=== PATIENT | female | born 1950 | race Caucasian/White ===

== ENCOUNTER → 2020-09-06 10:18 | Outpatient (BNVA) | payer SELFPAY | PROVIDERS: Visit Provider Nurse Practitioner ==

== ENCOUNTER → 2020-10-25 11:57 | Outpatient (BNVA) | payer MEDICARE, SELFPAY | PROVIDERS: PCP Internal Medicine; Visit Provider Nurse Practitioner | DX: Z13.89 Encounter for screening for other disorder (principal) | CPT/HCPCS: 99212 ==

== ENCOUNTER → 2020-12-06 14:51 | Outpatient (BNVA) | payer MEDICARE, SELFPAY | PROVIDERS: PCP Internal Medicine; Visit Provider Nurse Practitioner | DX: R13.10 Dysphagia, unspecified (principal); K22.70 Barrett's esophagus without dysplasia; K21.9 Gastro-esophageal reflux disease without esophagitis; Z80.0 Family history of malignant neoplasm of digestive organs | CPT/HCPCS: Q3014 ==

== ENCOUNTER 2020-12-07 08:43 | Outpatient (REF) | payer MEDICARE, SELFPAY ==
[2020-12-07 10:18] LABS: MANUAL DIFF FLAG NO
[2020-12-07 10:39] LABS: Basophils Percent Auto 0.9 % (0-2); Eosinophils Absolute Auto 0.1 X10*3/uL (0.0-0.4); Eosinophils Percent Auto 2.1 % (0-4); Hematocrit 37.9 % (37-47); Hemoglobin 12.4 g/dl (12.0-16.0); Imm Gran Abs Auto 0.01 X10*3/uL (0.00-0.03); Imm Gran Pct Auto 0.2 % (0.0-0.4); Lymphocytes Absolute Auto 1.4 X10*3/uL (1.2-4.9); Lymphocytes Percent Auto 30.8 % (20-40); Mean Corpuscular HGB Conc 32.7 g/dl (31.0-35.0); Mean Corpuscular Hemoglobin 31.6 pg (27.0-33.0); Mean Corpuscular Volume 96.7 fL (80-98); Mean Platelet Volume 10.5 fL (9.4-12.3); Monocytes Absolute Auto 0.5 X10*3/uL (0.1-1.2); Monocytes Percent Auto 9.6 % (2-11); Neutrophils Absolute Auto 2.6 X10*3/uL (2.0-8.3); Neutrophils Percent Auto 56.4 % (45-73); Platelet Count 249 X10*3/uL (160-400); Red Blood Count 3.92 X10*6/uL (4.20-5.50); Red Cell Distribution Width 12.8 % (11.0-16.0); White Blood Count 4.7 X10*3/uL (4.8-10.8)
[2020-12-07 10:56] LABS: Alanine Aminotransferase 17 U/L (0-31); Alkaline Phosphatase 57 U/L (39-117); Anion Gap 10 (12-20); Aspartate Amino Transferase 16 U/L (5-31); Bilirubin Total 0.9 mg/dL (0.0-1.0); Blood Urea Nitrogen 7 mg/dL (9-16); Calcium 9.2 mg/dL (8.4-10.2); Carbon Dioxide 27 mmol/L (22-29); Chloride 110 mmol/L (96-108); Estimated Glomerular Filt Rate > 60; Glucose Random 90 mg/dL (60-115); Potassium 4.4 mmol/L (3.3-5.1); Sodium 143 mmol/L (135-145); Total Protein 6.2 g/dL (6.5-8.0)
== END 2020-12-07 08:44 | disposition home or self-care (01) ==
LOC: HO.10HDL 08:43
PROVIDERS: Visit Provider Internal Medicine
DX: T59.91XA Toxic effect of unspecified gases, fumes and vapors, accidental (unintentional), initial encounter (principal)
CPT/HCPCS: 36415; 80053; 85025

== ENCOUNTER 2021-04-29 08:47 | Outpatient (REF) | payer MEDICARE, SELFPAY ==
--- NOTE | ~2021-04-29 | MM_ITS ---
EXAMINATION: MM SCREENING DIGITAL BREAST TOMOSYNTHESIS, BILATERAL CLINICAL INFORMATION: Screening. Asymptomatic. The lifetime risk of breast cancer based on the Tyrer-Cuzick Model is 3%. COMPARISON: Mammography: 04/27/2020, 01/06/2019, 12/17/2017 TECHNIQUE: Digital breast tomosynthesis is performed in both the craniocaudal and mediolateral oblique views along with computer-aided detection (CAD). Synthesized 2D images are generated from the tomosynthesis. FINDINGS: There are scattered areas of fibroglandular density (ACR BI-RADS breast composition Category b). There are no significant masses, abnormal calcifications, or other abnormalities. Parenchymal pattern is similar to prior studies. No significant changes. MM/MM tomosynthesis screening BI IMPRESSION: No mammographic evidence of malignancy. ASSESSMENT: BI-RADS 1: Negative RECOMMENDATION: Routine annual mammography screening. This patient's information was entered into a reminder system with a target due date for their next mammogram.
== END 2021-04-29 08:48 | disposition home or self-care (01) ==
LOC: HO.MAMMO 08:47
PROVIDERS: Visit Provider Internal Medicine
DX: Z12.31 Encounter for screening mammogram for malignant neoplasm of breast (principal)
CPT/HCPCS: 77063; 77067

== ENCOUNTER 2021-05-21 07:10 | Outpatient (REF) | payer MEDICARE, SELFPAY ==
[2021-05-21 07:32] LABS: MANUAL DIFF FLAG NO
[2021-05-21 07:47] LABS: Basophils Percent Auto 0.8 % (0-2); Eosinophils Absolute Auto 0.2 X10*3/uL (0.0-0.4); Eosinophils Percent Auto 3.6 % (0-4); Hematocrit 39.6 % (37-47); Hemoglobin 13.2 g/dl (12.0-16.0); Imm Gran Abs Auto 0.01 X10*3/uL (0.00-0.03); Imm Gran Pct Auto 0.2 % (0.0-0.4); Lymphocytes Absolute Auto 1.5 X10*3/uL (1.2-4.9); Lymphocytes Percent Auto 28.9 % (20-40); Mean Corpuscular HGB Conc 33.3 g/dl (31.0-35.0); Mean Corpuscular Volume 96.1 fL (80-98); Mean Platelet Volume 10.1 fL (9.4-12.3); Monocytes Absolute Auto 0.5 X10*3/uL (0.1-1.2); Monocytes Percent Auto 9.9 % (2-11); Neutrophils Absolute Auto 2.9 X10*3/uL (2.0-8.3); Neutrophils Percent Auto 56.6 % (45-73); Platelet Count 226 X10*3/uL (160-400); Red Blood Count 4.12 X10*6/uL (4.20-5.50); Red Cell Distribution Width 12.1 % (11.0-16.0); White Blood Count 5.1 X10*3/uL (4.8-10.8)
[2021-05-21 08:19] LABS: Alanine Aminotransferase 19 U/L (0-31); Alkaline Phosphatase 60 U/L (39-117); Anion Gap 10 (12-20); Aspartate Amino Transferase 15 U/L (5-31); Bilirubin Total 0.7 mg/dL (0.0-1.0); Blood Urea Nitrogen 10 mg/dL (9-16); Carbon Dioxide 28 mmol/L (22-29); Chloride 110 mmol/L (96-108); Cholesterol 189 mg/dL; Estimated Glomerular Filt Rate > 60; Glucose Fasting 96 mg/dL (60-99); HDL Cholesterol 55 mg/dL; LDL Cholesterol Calculated 123 mg/dl; Potassium 4.7 mmol/L (3.3-5.1); Sodium 143 mmol/L (135-145); Total Protein 6.1 g/dL (6.5-8.0); Triglycerides 55 mg/dL
[2021-05-21 08:39] LABS: TSH reflex Free T4 2.21 uIU/mL (0.32-4.0)
[2021-05-21 09:21] LABS: Appearance Urine CLEAR; Color Urine YELLOW; Glucose Urine UA NEG (NEG); Leukocyte Esterase Urine TRACE (NEG); Nitrite Urine NEG (NEG); Specific Gravity - Urine >= 1.030 (1.005-1.025); UACC Culture Trigger YES; Urine Blood NEG (NEG); Urine Ketones NEG (NEG); Urine Protein NEG (NEG-TRACE)
[2021-05-21 09:39] LABS: Mucus Urine 3+ /LPF; RBC Urine 0-2 /HPF (0); Squamous Epithelial Cell Urine 2+ /LPF
== END 2021-05-21 07:11 | disposition home or self-care (01) ==
LOC: HO.LAB 07:10
PROVIDERS: PCP Internal Medicine; Visit Provider Internal Medicine
DX: I10 Essential (primary) hypertension (principal); E78.00 Pure hypercholesterolemia, unspecified
CPT/HCPCS: 36415; 80053; 80061; 81001; 84443; 85025; 87086

== ENCOUNTER 2021-06-03 08:16 | Day surgery (SDC) | payer MEDICARE, SELFPAY ==
--- NOTE | 2021-05-30 13:56 | HO.ANESPROP2 ---
Documented by User: Rianna Mohan NP 05/30/21 13:57 HPI - Anesthesia Eval Consult details Narrative: 70yo F for Upper Endoscopy PMFSH Active Problems Active Problems: All Active Problems (Updated 05/22/21 @ 10:38 by Tristian Galvan MD) Osteopenia (Acute) Galloway's esophagus (Acute) GERD (gastroesophageal reflux disease) (Acute) Overweight (BMI 25.0-29.9) (Acute) Pure hypercholesterolemia (Acute) Benign essential hypertension (Acute) Galloway's esophagus (Acute) Dysphagia (Acute) Family history of colon cancer (Acute) Past Medical History Medical History Galloway's esophagus Benign essential hypertension GERD (gastroesophageal reflux disease) Osteopenia Overweight (BMI 25.0-29.9) Pure hypercholesterolemia Family History Family History Mother Angina pectoris Hearing loss Father Colon cancer, Onset Age: 91 Hearing loss Colon polyp Sister Brain tumor Paternal Grandfather Lung cancer Maternal Grandfather Myocardial infarction Maternal Grandmother Scarlet fever Other Substance abuse Surgical History Surgical History History of bladder suspension procedure History of cataract extraction History of esophagogastroduodenoscopy (EGD) Hx of colonoscopy Hx of hemorrhoidectomy Hx of hysterectomy Hx of tonsillectomy Social History Social History Household Members: None Housing: Other 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 Are you a primary health care attorney to a significant other at home: No Do you presently have visiting nurse or other home services: No Alcohol intake: former Patient Tobacco Use Status: Former Tobacco user Quit Date: 1990 Second Hand Smoke Exposure: Yes Are you DNR?: No Advance Directives: No Advance Directives Information Provided: Yes Recently lost weight without trying: No How much weight loss: 2-13 pounds Eating poorly because of decreased appetite: No Nutrition screen score: 1 Patient : No service: No Current occupational status: retired Meds Allergies Allergy/AdvReac Type Severity Reaction Status Date / Time pantoprazole AdvReac Unknown dizziness Verified 05/22/21 10:06 14-Count Warmer Allergy Unknown ? Uncoded 05/22/21 10:06 Exam Exam Date and Time: May 30, 2021 1356 Pertinent Lab Results Pertinent Lab Results: Laboratory Tests 05/21/21 05/21/21 07:29 07:29 WBC 5.1 Hgb 13.2 Hct 39.6 Plt Count 226 Sodium 143 Potassium 4.7 Chloride 110 H Carbon Dioxide 28 BUN 10 Creatinine 0.72 Assessment and Plan Assessment Anesthesia Assessment: Chart Reviewed Documented by User: Yajaira Vasquez MD 06/03/21 09:21 [facility] Past Medical History Medical History Galloway's esophagus Benign essential hypertension GERD (gastroesophageal reflux disease) Osteopenia Overweight (BMI 25.0-29.9) Pure hypercholesterolemia Functional capacity: independent ambulation Patient : No Family History Family History Mother Angina pectoris Hearing loss Father Colon cancer, Onset Age: 91 Hearing loss Colon polyp Sister Brain tumor Paternal Grandfather Lung cancer Maternal Grandfather Myocardial infarction Maternal Grandmother Scarlet fever Other Substance abuse Family history of problems with anesthesia: No Surgical History Surgical History History of bladder suspension procedure History of cataract extraction History of esophagogastroduodenoscopy (EGD) Hx of colonoscopy Hx of hemorrhoidectomy Hx of hysterectomy Hx of tonsillectomy History of Problems with Anesthesia: No Social History Social History Household Members: None Housing: Other 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 Are you a primary health care attorney to a significant other at home: No Do you presently have visiting nurse or other home services: No Alcohol intake: former Patient Tobacco Use Status: Former Tobacco user Quit Date: 1990 Second Hand Smoke Exposure: Yes Are you DNR?: No Advance Directives: No Advance Directives Information Provided: Yes Recently lost weight without trying: No How much weight loss: 2-13 pounds Eating poorly because of decreased appetite: No Nutrition screen score: 1 Patient : No service: No Current occupational status: retired Meds Allergies Allergy/AdvReac Type Severity Reaction Status Date / Time pantoprazole AdvReac Unknown dizziness Verified 05/22/21 10:06 14-Count Warmer Allergy Unknown ? Uncoded 05/22/21 10:06 Exam Airway Mallampati Class: II TM Dist: >3cm Neck ROM: Full Heart: RRR Lungs: CTA Assessment and Plan Final Anesthetic Review Family History of Problems with Anesthesia: No History of Problems with Anesthesia: No
[2021-06-03 08:40] VITALS: BP 151/62; PULSE 71; RESP 18; TEMP 36.6; O2SAT 98; BMI 25.4
--- NOTE | 2021-06-03 09:10 | MHC.SHP ---
Pre-Procedural Eval Section A Date of Service: 06/03/21 Section B Chief Complaint: dysphagia Relevant Family History (Specify if Yes): No Relevant Social History: None Present Medications: see Short Stay Collaborative assessment Medical History: Significant History (Galloway's esophagus Benign essential hypertension GERD (gastroesophageal reflux disease) Osteopenia Overweight (BMI 25.0-29.9) Pure hypercholesterolemia) History of Previous Operations: Relevant previous surgery/procedure and date(s) (History of bladder suspension procedure History of cataract extraction History of esophagogastroduodenoscopy (EGD) Hx of colonoscopy Hx of hemorrhoidectomy Hx of hysterectomy Hx of tonsillectomy) Allergies: Allergies Allergy/AdvReac Type Severity Reaction Status Date / Time pantoprazole AdvReac Unknown dizziness Verified 05/22/21 10:06 14-Count Warmer Allergy Unknown ? Uncoded 05/22/21 10:06 Review of Systems Sugical H&P ROS: Negative: Constitution, Cardiovascular, Respiratory, Neurological, Psychiatric, Hem-Onc, Allergic/Immunologic, Gastrointestinal, Genitourinary, Musculoskeletal, Integumentary, Endocrine and Eyes/Ears/Nose/Throat Exam Surgical H&P Exam: Normal: HEENT, Normal: Heart, Normal: Lungs, Normal: Extremities, Normal: Abdomen, Normal: Skin and Normal: Neurological Plan Diagnosis/Plan: Unchanged I have reviewed the history and physical and performed a pertinent physical examination on my patient. No changes have occurred unless specified.
--- NOTE | 2021-06-03 09:11 | P.BOP_ITS ---
Brief Operative Note Date of Service: 06/03/21 Pre-op diagnosis: GERD and occ dysphagia Post-op diagnosis: same Procedure: see op note Surgeon: Mercedez Jerez MD Anesthesia: MAC Was an Department Supervisor used for this Procedure?: No Estimated blood loss (mL): 0 Condition: stable Disposition: PACU
[2021-06-03] MEDS: Lactated Ringers 1,000 ML 50 ML IVCONT (09:22)
--- NOTE | 2021-06-03 09:26 | W.PM.OPN ---
Operative Note Operative Note Date of Service: 06/03/21 Narrative: Procedure Description: EGD FLEXIBLE TRANSORAL UPPER GASTROINTESTINAL ENDOSCOPY UPPER ENDOSCOPY Consent: Indications for the procedure and potential complications of bleeding, perforation, reaction to medications and missed diagnosis were discussed with the patient and informed consent was obtained. Instrument: Olympus GIF H 190 J mid size upper endoscope Monitoring: Vital signs and clinical assessment, continuous EKG monitoring, Pulse oximetry, Carbon Dioxide monitoring and blood pressure monitoring were done throughout the procedure. Procedure: The patient was placed in the left lateral decubitis position and pre-procedure medications were administered and a bite block was placed. The endoscope was inserted into the mouth and advanced under direct vision to the third part of duodenum. A careful inspection was made as the upper endoscope was withdrawn including a retroflexed examination of the proximal stomach; Findings and interventions are described below. Findings: Larynx:normal Esophagus: GE junction at 35 cm, diaphragm hiatus at 37 cm, mild esophagitis noted, bx taken from GEj and distal.proximal esophagus in separate jars. 2 cm sliding hiatal hernia noted. Balloon dilation to 19 mm at lower esophagus and 18 mm at UES Stomach: Patchy gastric erythema with antral erosions. Biopsies were obtained. Grade 2 flap valve on retroflexed examination of the cardia. Duodenum: moderate duodenitis, bx taken Intervention: Biopsies as noted above, balloon dilation Impression/Findings: erosive gastritis duodenitis hiatal hernia esophagitis PLAN: await bx she does take alleve once a week for back pain, has not been totally compliant with PPI, advised to take to reduce risk of ucleration and further acid damage, reviewed timings of BID dosing PPI
[2021-06-03 09:59] VITALS: BP 108/60; PULSE 80; RESP 16; TEMP 36.2; O2SAT 98
[2021-06-03 10:20] VITALS: BP 120/46; PULSE 69; RESP 16; TEMP 36.2; O2SAT 98
--- NOTE | 2021-06-03 12:54 | HO.POSTANES ---
Post Anesthesia Evaluation Post Anesthesia Evaluation Vital Signs: Vital Signs Temp Pulse Resp BP Pulse Ox 06/03/21 10:20 97.2 F 69 16 120/46 L 98 06/03/21 09:59 97.2 F 80 16 108/60 98 06/03/21 08:40 97.9 F 71 18 151/62 H 98 Anesthesia: Monitored Mental Status: Awake Pain Control: Satisfactory Nausea/Vomiting: None Hydration: Adequate Anesthesia-Related Issues: No Anes. Related Issues
== END 2021-06-03 11:46 | disposition home or self-care (01) ==
PROVIDERS: PCP Internal Medicine; Visit Provider Internal Medicine Gastroenterology
PROC: 0DJ08ZZ Inspection of Upper Intestinal Tract, Via Natural or Artificial Opening Endoscopic (ICD-10-PCS; CPT 43235; principal; 2021-06-03 09:20)
DX: K21.00 Gastro-esophageal reflux disease with esophagitis, without bleeding (principal); K22.70 Barrett's esophagus without dysplasia; K29.50 Unspecified chronic gastritis without bleeding; K29.80 Duodenitis without bleeding; K44.9 Diaphragmatic hernia without obstruction or gangrene; Z80.0 Family history of malignant neoplasm of digestive organs; Z79.899 Other long term (current) drug therapy; Z87.891 Personal history of nicotine dependence
CPT/HCPCS: 43249; 43239; 88305; 88342; C1726

== ENCOUNTER → 2021-06-18 15:25 | Outpatient (BNVA) | payer MEDICARE, SELFPAY | PROVIDERS: PCP Internal Medicine; Referring Provider Internal Medicine; Visit Provider Nurse Practitioner | DX: K22.70 Barrett's esophagus without dysplasia (principal); K21.9 Gastro-esophageal reflux disease without esophagitis; R13.10 Dysphagia, unspecified; Z80.0 Family history of malignant neoplasm of digestive organs | CPT/HCPCS: 99212 ==

== ENCOUNTER → 2021-11-26 09:23 | Outpatient (BNVA) | payer MEDICARE, SELFPAY | PROVIDERS: PCP Internal Medicine; Referring Provider Internal Medicine; Visit Provider Nurse Practitioner | DX: K22.70 Barrett's esophagus without dysplasia (principal); K21.9 Gastro-esophageal reflux disease without esophagitis; Z79.899 Other long term (current) drug therapy; Z80.0 Family history of malignant neoplasm of digestive organs | CPT/HCPCS: 99212 ==

== ENCOUNTER 2021-12-17 14:19 | Outpatient (REF) | payer MEDICARE, SELFPAY ==
--- NOTE | ~2021-12-17 | MM_ITS ---
EXAMINATION: BONE DENSITOMETRY CLINICAL INDICATION: Asymptomatic. COMPARISON: Previous BD dated 01/06/2019 and baseline BD dated 07/27/2007. TECHNIQUE: Using a [employer]ARTIS DXA System (software version: 13.1) manufactured by [employer], dual-energy x-ray absorptiometry was performed of the lumbar spine and left hip. The images are of good technical quality. Summary results are attached. FINDINGS: AP SPINE L1-L4: Current: BMD 0.944 g/cm2, Z-score -0.4, T-score -2.0, osteopenia, 5.3% decrease from previous, 5.4% decrease from baseline (<5% change is not significant). Prior: BMD 0.933 g/cm2. Baseline: BMD 0.937 g/cm2. LEFT FEMUR, NECK: Current: BMD 0.678 g/cm2, Z-score -0.9, T-score -2.6, osteoporosis. Prior: BMD 0.713 g/cm2. Baseline: BMD 0.735 g/cm2. LEFT FEMUR, TOTAL: Current: BMD 0.733 g/cm2, Z-score -0.7, T-score -2.2, osteopenia, 1.9% decrease from previous, 4.1% decrease from baseline (<5% change is not significant). Prior: BMD 0.747 g/cm2. Baseline: BMD 0.764 g/cm2. IDENTIFIED RISK FACTORS: Recurrent falls, height loss, history of fracture (adult). Early menopause, secondary osteoporosis, hysterectomy, right oophorectomy. HISTORY OF FRACTURE: L5 vertebral body, elbow, wrist, patella. MEDICATIONS: Calcium supplements or multivitamin, vitamin D. MM/XR DEXA axial skeleton IMPRESSION: 1. DIAGNOSIS: Osteoporosis based on the lowest T-score value of -2.6 in the femoral neck applying World Health Organization criteria. 2. 10-YEAR FRACTURE RISK PREDICTION, FRAX: According to the guidelines, FRAX calculation should only be performed on patients in the osteopenia bone density category. Therefore, FRAX was not performed on this patient. 3. Treatment Recommendations: NOF guidelines recommend consideration for treatment in postmenopausal women and men age 50 and older presenting with the following: -A hip or vertebral (clinical or morphometric) fracture. -T-score less than or equal to -2.5 at the femoral neck or spine after appropriate evaluation to exclude secondary causes. -Low bone mass at the hip or spine and a 10-year fracture probability by FRAX of greater than or equal to 3% for hip fracture or greater than or equal to 20% for major osteoporotic fracture based on the [place] adapted WHO algorithm. 4. Other Recommendations: All treatment decisions require clinical judgment and consideration of individual patient factors, including patient preferences, comorbidities, previous drug use, risk factors not captured in the FRAX model (e.g. frailty, falls, vitamin D deficiency, increased bone turnover, interval significant decline in bone density) and possible under or overestimation of fracture risk by FRAX. Additional medical evaluation for secondary cause of low bone mineral density may be appropriate. FUTURE SCAN RECOMMENDATION: People with diagnosed cases of osteoporosis or at high risk for fracture should have regular bone mineral density tests. For patients eligible for Medicare, routine testing is allowed once every 2 years. The testing frequency can be increased to one year for patients who have rapidly progressing disease, those who are receiving or discontinuing medical therapy to restore bone mass, or have additional risk factors.
== END 2021-12-17 14:20 | disposition home or self-care (01) ==
LOC: HO.MAMMO 14:19
PROVIDERS: PCP Internal Medicine; Visit Provider Internal Medicine
DX: Z13.820 Encounter for screening for osteoporosis (principal); Z78.0 Asymptomatic menopausal state
CPT/HCPCS: 77080

== ENCOUNTER 2021-12-20 08:18 | Outpatient (REF) | payer MEDICARE, SELFPAY ==
[2021-12-20 08:41] LABS: MANUAL DIFF FLAG NO
[2021-12-20 09:02] LABS: Basophils Absolute Auto 0.1 X10*3/uL (0.0-0.2); Eosinophils Absolute Auto 0.2 X10*3/uL (0.0-0.4); Eosinophils Percent Auto 3.9 % (0-4); Hematocrit 40.4 % (37.0-47.0); Hemoglobin 13.2 g/dl (12.0-16.0); Imm Gran Abs Auto 0.01 X10*3/uL (0.00-0.03); Imm Gran Pct Auto 0.2 % (0.0-0.4); Lymphocytes Absolute Auto 1.4 X10*3/uL (1.2-4.9); Lymphocytes Percent Auto 29.5 % (20-40); Mean Corpuscular HGB Conc 32.7 g/dl (31.0-35.0); Mean Corpuscular Hemoglobin 31.1 pg (27.0-33.0); Mean Corpuscular Volume 95.1 fL (80.0-98.0); Mean Platelet Volume 10.4 fL (9.4-12.3); Monocytes Absolute Auto 0.5 X10*3/uL (0.1-1.2); Monocytes Percent Auto 9.8 % (2-11); Neutrophils Absolute Auto 2.7 x10*3/uL (2.0-8.3); Neutrophils Percent Auto 55.6 % (45-73); Platelet Count 220 X10*3/uL (160-400); Red Blood Count 4.25 X10*6/uL (4.20-5.50); Red Cell Distribution Width 12.2 % (11.0-16.0); White Blood Count 4.9 X10*3/uL (4.8-10.8)
[2021-12-20 09:29] LABS: Alanine Aminotransferase 14 U/L (0-31); Albumin Level 4.1 g/dL (3.5-5.0); Alkaline Phosphatase 68 U/L (39-117); Anion Gap 11 (12-20); Aspartate Amino Transferase 14 U/L (5-31); Bilirubin Total 0.6 mg/dL (0.0-1.0); Blood Urea Nitrogen 15 mg/dL (9-16); Calcium 9.8 mg/dL (8.4-10.2); Carbon Dioxide 28 mmol/L (22-29); Chloride 109 mmol/L (96-108); Cholesterol 182 mg/dL; Estimated Glomerular Filt Rate > 60; Glucose Fasting 86 mg/dL (60-99); HDL Cholesterol 59 mg/dL; LDL Cholesterol Calculated 113 mg/dl; Potassium 4.8 mmol/L (3.3-5.1); Sodium 143 mmol/L (135-145); Total Protein 6.5 g/dL (6.5-8.0); Triglycerides 53 mg/dL
[2021-12-20 10:53] LABS: Appearance Urine CLEAR; Color Urine YELLOW; Glucose Urine UA NEG (NEG); Leukocyte Esterase Urine NEG (NEG); Nitrite Urine NEG (NEG); PH 5.5 (5.0-8.0); Specific Gravity - Urine 1.025 (1.005-1.025); Urine Blood NEG (NEG); Urine Ketones NEG (NEG); Urine Protein NEG (NEG-TRACE)
== END 2021-12-20 08:19 | disposition home or self-care (01) ==
LOC: HO.LAB 08:18
PROVIDERS: PCP Internal Medicine; Visit Provider Internal Medicine
DX: E78.00 Pure hypercholesterolemia, unspecified (principal); E55.9 Vitamin D deficiency, unspecified; I10 Essential (primary) hypertension
CPT/HCPCS: 36415; 80053; 80061; 81003; 82306; 84443; 85025

== ENCOUNTER 2022-01-21 12:41 | Day surgery (SDC) | payer MEDICARE, SELFPAY ==
[2022-01-15 16:33] VITALS: BMI 27.3
--- NOTE | 2022-01-20 08:57 | P.CONAN_ITS ---
Documented by User: Rianna Mohan NP 01/20/22 09:05 HPI - Anesthesia Eval Consult details Narrative: 71yo F for Colonoscopy s/p EGD 05/2021 with T[facility]A PMFSH Active Problems Active Problems: All Active Problems (Updated 01/17/22 @ 14:30 by Denzel Obrien MD) Leg pain, bilateral (Acute) Patellar fracture (Acute) Osteopenia (Acute) Galloway's esophagus (Acute) GERD (gastroesophageal reflux disease) (Acute) Overweight (BMI 25.0-29.9) (Acute) Pure hypercholesterolemia (Acute) Benign essential hypertension (Acute) Dysphagia (Acute) Family history of colon cancer (Acute) Past Medical History Medical History Galloway's esophagus Benign essential hypertension GERD (gastroesophageal reflux disease) Osteopenia Overweight (BMI 25.0-29.9) Patellar fracture Pure hypercholesterolemia Family History Family History Mother Angina pectoris Hearing loss Father Colon cancer, Onset Age: 91 Hearing loss Colon polyp Sister Brain tumor Paternal Grandfather Lung cancer Maternal Grandfather Myocardial infarction Maternal Grandmother Scarlet fever Other Substance abuse Family history of problems with anesthesia: No Surgical History Surgical History History of bladder suspension procedure History of cataract extraction History of esophagogastroduodenoscopy (EGD) Hx of colonoscopy Hx of hemorrhoidectomy Hx of hysterectomy Hx of tonsillectomy History of Problems with Anesthesia: No Social History Social History Household Members: None Housing: Other 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 Are you a primary career placement services counselor to a significant other at home: No Do you presently have visiting nurse or other home services: No Alcohol intake: former Patient Tobacco Use Status: Former Tobacco user Quit Date: 1990 Second Hand Smoke Exposure: Yes Are you DNR?: No Advance Directives: No Advance Directives Information Provided: Yes service: No Current occupational status: retired Cognitive needs: No Hearing needs: No Vision needs: Yes Meds Allergies Allergy/AdvReac Type Severity Reaction Status Date / Time No Known Allergies Allergy Verified 01/21/22 13:01 Exam Exam Date and Time: January 20, 2022 0857 Height,Weight and Vital Signs: Height 5 ft 3 in Weight 69.853 kg Pertinent Lab Results Pertinent Lab Results: Laboratory Tests 12/20/21 12/20/21 08:39 08:39 WBC 4.9 Hgb 13.2 Hct 40.4 Plt Count 220 Sodium 143 Potassium 4.8 Chloride 109 H Carbon Dioxide 28 BUN 15 Creatinine 0.79 Assessment and Plan Assessment Anesthesia Assessment: Chart Reviewed Final Anesthetic Review Family History of Problems with Anesthesia: No History of Problems with Anesthesia: No Documented by User: Mag Mendoza MD 01/21/22 13:14 [facility] Past Medical History Medical History Galloway's esophagus Benign essential hypertension GERD (gastroesophageal reflux disease) Osteopenia Overweight (BMI 25.0-29.9) Patellar fracture Pure hypercholesterolemia Family History Family History Mother Angina pectoris Hearing loss Father Colon cancer, Onset Age: 91 Hearing loss Colon polyp Sister Brain tumor Paternal Grandfather Lung cancer Maternal Grandfather Myocardial infarction Maternal Grandmother Scarlet fever Other Substance abuse Surgical History Surgical History History of bladder suspension procedure History of cataract extraction History of esophagogastroduodenoscopy (EGD) Hx of colonoscopy Hx of hemorrhoidectomy Hx of hysterectomy Hx of tonsillectomy Social History Social History Household Members: None Housing: Other 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 Are you a primary career placement services counselor to a significant other at home: No Do you presently have visiting nurse or other home services: No Alcohol intake: former Patient Tobacco Use Status: Former Tobacco user Quit Date: 1990 Second Hand Smoke Exposure: Yes Are you DNR?: No Advance Directives: No Advance Directives Information Provided: Yes service: No Current occupational status: retired Cognitive needs: No Hearing needs: No Vision needs: Yes Meds Allergies Allergy/AdvReac Type Severity Reaction Status Date / Time No Known Allergies Allergy Verified 01/21/22 13:01 Exam Airway Mallampati Class: II (Edentulous) TM Dist: >3cm Denture: Upper and Lower Loose/Missing/Broken Teeth: Yes, Upper and Lower Heart: RRR Lungs: CTA Assessment and Plan Assessment Anesthesia Assessment: Anesthesia Plan Discussed Final Anesthetic Review NPO: Yes ASA Class: II Final Preanesthetic Review: Meds/Allgs Chart Reviewed, Consent Obtained/Reviewed and Anes Risks/Benef Reviewed Patient Risk: Low Procedure Risk: Low Anesthetic Plan Anesthetic Plan: MAC: Disposition: Standard PACU
[2022-01-21 12:48] VITALS: BP 154/85; PULSE 99; RESP 17; TEMP 36.6; O2SAT 95
[2022-01-21] MEDS: Lactated Ringers 1,000 ML 100 ML IVCONT (13:05)
--- NOTE | 2022-01-21 13:42 | MHC.SHP ---
Pre-Procedural Eval Section A Date of Service: 01/21/22 Section B Chief Complaint: hx of colon polyps Details of Present Illness: FH of CRC in father Relevant Family History (Specify if Yes): Yes Relevant Social History: None Present Medications: see Short Stay Collaborative assessment Medical History: Significant History (Galloway's esophagus Benign essential hypertension GERD (gastroesophageal reflux disease) Osteopenia Overweight (BMI 25.0-29.9) Patellar fracture Pure hypercholesterolemia) History of Previous Operations: Relevant previous surgery/procedure and date(s) (History of bladder suspension procedure History of cataract extraction History of esophagogastroduodenoscopy (EGD) Hx of colonoscopy Hx of hemorrhoidectomy Hx of hysterectomy Hx of tonsillectomy) Allergies: Allergies Allergy/AdvReac Type Severity Reaction Status Date / Time No Known Allergies Allergy Verified 01/21/22 13:01 Review of Systems Sugical H&P ROS: Negative: Constitution, Cardiovascular, Respiratory, Neurological, Psychiatric, Hem-Onc, Allergic/Immunologic, Gastrointestinal, Genitourinary, Musculoskeletal, Integumentary, Endocrine and Eyes/Ears/Nose/Throat Exam Surgical H&P Exam: Normal: HEENT, Normal: Heart, Normal: Lungs, Normal: Extremities, Normal: Abdomen, Normal: Skin and Normal: Neurological Plan Diagnosis/Plan: Unchanged I have reviewed the history and physical and performed a pertinent physical examination on my patient. No changes have occurred unless specified.
--- NOTE | 2022-01-21 13:50 | P.OP_ITS ---
Operative Note Operative Note Date of Service: 01/21/22 Narrative: Operative Information Procedure Description: Colonoscopy Indication: Hx of colon polyps Anesthesia: MAC COLONOSCOPY Instrument: Olympus variable stiffness pediatric scope 190L Colonoscopy Monitoring: Vital signs and clinical assessment, continuous EKG monitoring, Pulse oximetry, Carbon Dioxide monitoring and blood pressure monitoring were done throughout the procedure. Colon withdrawal time was 12 minutes. Procedure: The patient was placed in the left lateral decubitis position and pre-procedure medications were administered. After a digital rectal examination of the ano-rectum, the video colonoscope was inserted into the rectum and advanced through the colon to the cecum/TI. The colonoscope was slowly withdrawn in a retrograde panoramic fashion and the colon mucosa was carefully examined including a retroflexed view of the rectum. Findings and interventions are described below. Procedure Difficulty: moderate Findings: Terminal Ileum-normal Rgith sided retroflexion was normal Cecum:normal Ascending Colon: normal, few small non bleeding AVM seen Transverse Colon -normal Descending Colon:normal Sigmoid Colon: normal Rectum: Retroflexion with moderate sized internal hemorrhoids, grade I Anorectum - normal Colon preparation: [place] Bowel Preparation Scale Right colon; 3 Transverse colon: 2 Left colon; 3 (0 = Unprepared colon segment with mucosa not seen due to solid stool that cannot be cleared. 1 = Portion of mucosa of the colon segment seen, but other areas of the colon segment not well seen due to staining, residual stool and/or opaque liquid. 2 = Minor amount of residual staining, small fragments of stool and/or opaque liquid, but mucosa of colon segment seen well. 3 = Entire mucosa of colon segment seen well with no residual staining, small fragments of stool or opaque liquid) Impression and Post Procedure Diagnosis: AVM internal hemorrhoids Plan: High fiber diet leaflet Avoid straining at stool, epsom salts and sitz bath, anusol supps or cream Repeat Colonoscopy in 3-5 years due to FH of CRC and personal hx of colon polyps or earlier if clinically indicated Above findings were reviewed with the patient and relevant handouts were provided if indicated.
--- NOTE | 2022-01-21 13:50 | PM.OP ---
Brief Operative Note Date of Service: 01/21/22 Pre-op diagnosis: hx of colon polyps Post-op diagnosis: same Procedure: see op note Surgeon: Mercedez Jerez MD Anesthesia: MAC Was an Telephone Solicitor Supervisor used for this Procedure?: No Estimated blood loss (mL): 0 Condition: stable Disposition: PACU
[2022-01-21 14:31] VITALS: BP 83/36; PULSE 78; RESP 16; TEMP 36.6; O2SAT 97
[2022-01-21 14:46] VITALS: BP 123/64; PULSE 78; RESP 16; O2SAT 98
[2022-01-21 15:01] VITALS: BP 115/49; PULSE 83; RESP 16; TEMP 36.4; O2SAT 97
== END 2022-01-21 15:40 | disposition home or self-care (01) ==
PROVIDERS: PCP Internal Medicine; Visit Provider Internal Medicine Gastroenterology
PROC: 0DJD8ZZ Inspection of Lower Intestinal Tract, Via Natural or Artificial Opening Endoscopic (ICD-10-PCS; CPT 45378; principal; 2022-01-21 14:30)
DX: Z12.11 Encounter for screening for malignant neoplasm of colon (principal); Z86.010 Personal history of colon polyps; Z80.0 Family history of malignant neoplasm of digestive organs; K55.20 Angiodysplasia of colon without hemorrhage; K64.0 First degree hemorrhoids; K22.70 Barrett's esophagus without dysplasia; K21.9 Gastro-esophageal reflux disease without esophagitis; I10 Essential (primary) hypertension; M85.80 Other specified disorders of bone density and structure, unspecified site; E66.3 Overweight; Z68.26 Body mass index [BMI] 26.0-26.9, adult; Z79.899 Other long term (current) drug therapy; Z88.8 Allergy status to other drugs, medicaments and biological substances; Z87.891 Personal history of nicotine dependence
CPT/HCPCS: G0105

== ENCOUNTER → 2022-02-04 16:09 | Outpatient (BNVA) | payer MEDICARE, SELFPAY | PROVIDERS: PCP Internal Medicine; Referring Provider Internal Medicine; Visit Provider Nurse Practitioner | DX: K21.9 Gastro-esophageal reflux disease without esophagitis (principal); Z80.0 Family history of malignant neoplasm of digestive organs; Z79.899 Other long term (current) drug therapy | CPT/HCPCS: 99212 ==

== ENCOUNTER 2022-04-17 10:06 | Outpatient (REF) | payer MEDICARE, SELFPAY ==
--- NOTE | ~2022-04-17 | XR_ITS ---
EXAMINATION: XR KNEE, RIGHT XR KNEE, STANDING, BILATERAL CLINICAL INFORMATION: Knee pain. COMPARISON: 09/19/2010 TECHNIQUE: AP standing views of both knees and sunrise and lateral views of the right knee. FINDINGS: AP standing view of both knees demonstrates some narrowing of the medial joint space compartments bilaterally. No acute fracture or dislocation is evident. There is mild chondrocalcinosis. Lateral and sunrise views of the right knee demonstrates some degenerative narrowing of the lateral facet with some mild degenerative spurring. No significant knee effusion is seen. There is a small spur site of insertion of the quadriceps tendon. There is mild progression of disease compared to study of 09/19/2010. XR/XR knee standing BI IMPRESSION: Bilateral mild degenerative narrowing of the medial joint space compartments. Mild degenerative change of the right patellofemoral joint.
--- NOTE | ~2022-04-17 | XR_ITS ---
EXAMINATION: XR KNEE, RIGHT XR KNEE, STANDING, BILATERAL CLINICAL INFORMATION: Knee pain. COMPARISON: 09/19/2010 TECHNIQUE: AP standing views of both knees and sunrise and lateral views of the right knee. FINDINGS: AP standing view of both knees demonstrates some narrowing of the medial joint space compartments bilaterally. No acute fracture or dislocation is evident. There is mild chondrocalcinosis. Lateral and sunrise views of the right knee demonstrates some degenerative narrowing of the lateral facet with some mild degenerative spurring. No significant knee effusion is seen. There is a small spur site of insertion of the quadriceps tendon. There is mild progression of disease compared to study of 09/19/2010. XR/XR knee RT 2V IMPRESSION: Bilateral mild degenerative narrowing of the medial joint space compartments. Mild degenerative change of the right patellofemoral joint.
== END 2022-04-17 10:07 | disposition home or self-care (01) ==
LOC: HO.HOSX 10:06
PROVIDERS: Visit Provider Orthopaedic Surgery
DX: M17.11 Unilateral primary osteoarthritis, right knee (principal); M25.562 Pain in left knee; Z87.81 Personal history of (healed) traumatic fracture
CPT/HCPCS: 73560; 73565; 99202

== ENCOUNTER 2022-05-01 08:28 | Outpatient (REF) | payer MEDICARE, SELFPAY ==
--- NOTE | ~2022-05-01 | MM_ITS ---
EXAMINATION: MM SCREENING DIGITAL BREAST TOMOSYNTHESIS, BILATERAL CLINICAL INFORMATION: Screening. Asymptomatic. The lifetime risk of breast cancer based on the Tyrer-Cuzick Model is 2%. COMPARISON: Mammography: 04/29/2021, 04/27/2020, 01/06/2019 TECHNIQUE: Digital breast tomosynthesis is performed in both the craniocaudal and mediolateral oblique views along with computer-aided detection (CAD). Synthesized 2D images are generated from the tomosynthesis. Additional left CC and left MLO views are provided. FINDINGS: There are scattered areas of fibroglandular density (ACR BI-RADS breast composition Category b). There are no significant masses, abnormal calcifications, or other abnormalities. Parenchymal pattern is similar to prior studies. There is no developing density or architectural abnormality. The axilla and skin contours are unremarkable. No significant changes. MM/MM tomosynthesis screening BI IMPRESSION: No mammographic evidence of malignancy. ASSESSMENT: BI-RADS 1: Negative RECOMMENDATION: Routine annual mammography screening. This patient's information was entered into a reminder system with a target due date for their next mammogram.
== END 2022-05-01 08:29 | disposition home or self-care (01) ==
LOC: HO.MAMMO 08:28
PROVIDERS: PCP Internal Medicine; Visit Provider Internal Medicine
DX: Z12.31 Encounter for screening mammogram for malignant neoplasm of breast (principal)
CPT/HCPCS: 77063; 77067

== ENCOUNTER 2022-05-22 12:36 | Outpatient (REF) | payer MEDICARE, SELFPAY ==
--- NOTE | ~2022-05-22 | XR_ITS ---
EXAMINATION: XR KNEE, LEFT CLINICAL INFORMATION: Pain. COMPARISON: None TECHNIQUE: Four views of the left knee. FINDINGS: There is mild loss of medial and patellofemoral compartment joint space with inferior patellar spurring. No visible loose bodies, bony erosive changes or joint effusion seen. XR/XR knee LT 2V IMPRESSION: Mild degenerative changes medial and patellofemoral compartment. No visible acute fracture or dislocation seen
== END 2022-05-22 12:37 | disposition home or self-care (01) ==
LOC: HO.HOSX 12:36
PROVIDERS: Visit Provider Orthopaedic Surgery
DX: S82.002A Unspecified fracture of left patella, initial encounter for closed fracture (principal); M17.11 Unilateral primary osteoarthritis, right knee
CPT/HCPCS: 73560; 99212

== ENCOUNTER → 2022-06-04 15:59 | Outpatient (BNVA) | payer MEDICARE, SELFPAY | PROVIDERS: PCP Internal Medicine; Visit Provider Internal Medicine Endocrinology, Diabetes & Metabolism | DX: M81.0 Age-related osteoporosis without current pathological fracture (principal) | CPT/HCPCS: 99202 ==

== ENCOUNTER 2022-08-06 07:44 | Outpatient (REF) | payer MEDICARE, SELFPAY ==
[2022-08-06 08:07] LABS: MANUAL DIFF FLAG NO
[2022-08-06 08:28] LABS: Basophils Percent Auto 0.9 % (0-2); Eosinophils Absolute Auto 0.2 X10*3/uL (0.0-0.4); Eosinophils Percent Auto 4.6 % (0-4); Hematocrit 38.4 % (37.0-47.0); Hemoglobin 12.8 g/dl (12.0-16.0); Imm Gran Abs Auto 0.02 X10*3/uL (0.00-0.03); Imm Gran Pct Auto 0.5 % (0.0-0.4); Lymphocytes Absolute Auto 1.3 X10*3/uL (1.2-4.9); Lymphocytes Percent Auto 30.5 % (20-40); Mean Corpuscular HGB Conc 33.3 g/dl (31.0-35.0); Mean Corpuscular Hemoglobin 31.9 pg (27.0-33.0); Mean Corpuscular Volume 95.8 fL (80.0-98.0); Mean Platelet Volume 10.7 fL (9.4-12.3); Monocytes Absolute Auto 0.4 X10*3/uL (0.1-1.2); Neutrophils Absolute Auto 2.4 x10*3/uL (2.0-8.3); Neutrophils Percent Auto 54.5 % (45-73); Platelet Count 216 X10*3/uL (160-400); Red Blood Count 4.01 X10*6/uL (4.20-5.50); Red Cell Distribution Width 12.1 % (11.0-16.0); White Blood Count 4.3 X10*3/uL (4.8-10.8)
[2022-08-06 08:30] LABS: Appearance Urine Clear; Color Urine Yellow; Glucose Urine UA Negative (Negative); Leukocyte Esterase Urine Small (1+) (Negative); Nitrite Urine Negative (Negative); Specific Gravity - Urine 1.015 (1.005-1.025); UMIC TRIGGER UACC YES; Urine Blood Negative (Negative); Urine Ketones Negative (Negative); Urine Protein Negative (Neg-Trace)
[2022-08-06 08:40] LABS: Bacteria Urine None Seen (None Seen); Hyaline Casts Urine 0-2 /LPF (0-2); RBC Urine 0-2 /HPF (0-2); Squamous Epithelial Cell Urine 0-2 /HPF (0-2); UACC Culture Trigger YES; WBC Urine 0-5 /HPF (0-5)
[2022-08-06 09:35] LABS: Alanine Aminotransferase 16 U/L (0-31); Albumin Level 4.2 g/dL (3.5-5.0); Alkaline Phosphatase 66 U/L (39-117); Anion Gap 11 (12-20); Aspartate Amino Transferase 15 U/L (5-31); Bilirubin Total 0.6 mg/dL (0.0-1.0); Blood Urea Nitrogen 15 mg/dL (9-16); Calcium 9.5 mg/dL (8.4-10.2); Carbon Dioxide 27 mmol/L (22-29); Chloride 109 mmol/L (96-108); Cholesterol 208 mg/dL; Estimated Glomerular Filt Rate > 60; Glucose Fasting 85 mg/dL (60-99); HDL Cholesterol 53 mg/dL; LDL Cholesterol Calculated 144 mg/dl; Phosphorus 3.8 mg/dL (2.7-4.5); Potassium 4.6 mmol/L (3.3-5.1); Sodium 142 mmol/L (135-145); TSH reflex Free T4 2.49 uIU/mL (0.32-4.0); Total Protein 6.2 g/dL (6.5-8.0); Triglycerides 58 mg/dL; Vitamin D 25-OH Total 60.6 ng/mL (>30)
[2022-08-13 12:02] LABS: Prot Elec - Albumin 4.1 g/dL (3.8-4.8); Prot Elec - Alpha1 0.3 g/dL (0.2-0.3); Prot Elec - Alpha2 0.7 g/dL (0.5-0.9); Prot Elec - Beta 1 0.4 g/dL (0.4-0.6); Prot Elec - Beta 2 0.2 g/dL (0.2-0.5); Prot Elec - Gamma 0.7 g/dL (0.8-1.7); Prot Elec - Total Protein 6.3 g/dL (6.1-8.1)
== END 2022-08-06 07:45 | disposition home or self-care (01) ==
LOC: HO.LAB 07:44
PROVIDERS: Absent Provider Internal Medicine; PCP Internal Medicine; Visit Provider Internal Medicine Endocrinology, Diabetes & Metabolism
DX: I10 Essential (primary) hypertension (principal); E55.9 Vitamin D deficiency, unspecified; E78.00 Pure hypercholesterolemia, unspecified; M85.80 Other specified disorders of bone density and structure, unspecified site
CPT/HCPCS: 36415; 80053; 80061; 81001; 82306; 84100; 84165; 84443; 85025; 86335; 87086

== ENCOUNTER 2022-08-19 09:42 | Outpatient (REF) | payer MEDICARE, SELFPAY ==
[2022-08-19 10:34] LABS: Creatinine, mg/dL 46.03
[2022-08-19 15:06] LABS: Creatinine, 24Hr Urine 0.9 G/Day (1.0-2.0); Total Volume 24 Hour Urine 1975 mL
[2022-08-21 16:38] LABS: Calcium, 24 Hr Urine 119 mg/24 h; Calcium/Creatinine Ratio 136 mg/g creat (30-275); Creatinine 24Hr Urine 0.87 g/24 h (0.50-2.15)
== END 2022-08-19 09:43 | disposition home or self-care (01) ==
LOC: HO.LNP 09:42
PROVIDERS: Visit Provider Internal Medicine Endocrinology, Diabetes & Metabolism
DX: M85.80 Other specified disorders of bone density and structure, unspecified site (principal)
CPT/HCPCS: 82340; 82570

== ENCOUNTER → 2022-10-03 14:27 | Outpatient (BNVA) | payer MEDICARE, SELFPAY | PROVIDERS: PCP Internal Medicine; Visit Provider Internal Medicine Endocrinology, Diabetes & Metabolism | DX: M81.0 Age-related osteoporosis without current pathological fracture (principal); R29.6 Repeated falls; Z78.0 Asymptomatic menopausal state; Z90.710 Acquired absence of both cervix and uterus; Z90.721 Acquired absence of ovaries, unilateral; Z87.81 Personal history of (healed) traumatic fracture | CPT/HCPCS: 99212 ==

== ENCOUNTER → 2022-10-16 08:26 | Outpatient (BNVA) | payer MEDICARE, SELFPAY | PROVIDERS: PCP Internal Medicine; Visit Provider Internal Medicine Endocrinology, Diabetes & Metabolism | DX: M81.0 Age-related osteoporosis without current pathological fracture (principal) | CPT/HCPCS: 99212 ==

== ENCOUNTER 2022-12-12 07:56 | Outpatient (REF) | payer MEDICARE, SELFPAY ==
[2022-12-12 08:09] LABS: MANUAL DIFF FLAG NO
[2022-12-12 08:23] LABS: Basophils Percent Auto 0.8 % (0-2); Eosinophils Absolute Auto 0.2 X10*3/uL (0.0-0.4); Eosinophils Percent Auto 3.3 % (0-4); Hematocrit 39.3 % (37.0-47.0); Hemoglobin 12.9 g/dl (12.0-16.0); Imm Gran Abs Auto 0.01 X10*3/uL (0.00-0.03); Imm Gran Pct Auto 0.2 % (0.0-0.4); Lymphocytes Absolute Auto 1.5 X10*3/uL (1.2-4.9); Lymphocytes Percent Auto 29.9 % (20-40); Mean Corpuscular HGB Conc 32.8 g/dl (31.0-35.0); Mean Corpuscular Hemoglobin 31.3 pg (27.0-33.0); Mean Corpuscular Volume 95.4 fL (80.0-98.0); Mean Platelet Volume 10.3 fL (9.4-12.3); Monocytes Absolute Auto 0.5 X10*3/uL (0.1-1.2); Monocytes Percent Auto 9.9 % (2-11); Neutrophils Absolute Auto 2.9 x10*3/uL (2.0-8.3); Neutrophils Percent Auto 55.9 % (45-73); Platelet Count 219 X10*3/uL (160-400); Red Blood Count 4.12 X10*6/uL (4.20-5.50); Red Cell Distribution Width 12.4 % (11.0-16.0); White Blood Count 5.2 X10*3/uL (4.8-10.8)
[2022-12-12 08:53] LABS: Alanine Aminotransferase 16 U/L (0-31); Albumin Level 4.2 g/dL (3.5-5.0); Alkaline Phosphatase 67 U/L (39-117); Anion Gap 12 (12-20); Aspartate Amino Transferase 17 U/L (5-31); Bilirubin Total 0.8 mg/dL (0.0-1.0); Blood Urea Nitrogen 13 mg/dL (9-16); Calcium 9.3 mg/dL (8.4-10.2); Carbon Dioxide 27 mmol/L (22-29); Chloride 110 mmol/L (96-108); Cholesterol 179 mg/dL; Estimated Glomerular Filt Rate > 60; Glucose Fasting 86 mg/dL (60-99); HDL Cholesterol 50 mg/dL; LDL Cholesterol Calculated 116 mg/dl; Sodium 144 mmol/L (135-145); Total Protein 6.2 g/dL (6.5-8.0); Triglycerides 65 mg/dL
[2022-12-12 09:13] LABS: TSH reflex Free T4 2.06 uIU/mL (0.32-4.0)
[2022-12-12 09:59] LABS: Appearance Urine Clear; Color Urine Yellow; Glucose Urine UA Negative (Negative); Leukocyte Esterase Urine Trace (Negative); Nitrite Urine Negative (Negative); PH 5.5 (5.0-9.0); Specific Gravity - Urine 1.015 (1.005-1.025); UMIC TRIGGER UACC YES; Urine Blood Negative (Negative); Urine Ketones Negative (Negative); Urine Protein Negative (Neg-Trace)
[2022-12-12 10:05] LABS: Bacteria Urine None Seen (None Seen); Hyaline Casts Urine 0-2 /LPF (0-2); RBC Urine 0-2 /HPF (0-2); Squamous Epithelial Cell Urine 0-2 /HPF (0-2); WBC Urine 0-5 /HPF (0-5)
== END 2022-12-12 07:57 | disposition home or self-care (01) ==
LOC: HO.LAB 07:56
PROVIDERS: PCP Internal Medicine; Visit Provider Internal Medicine
DX: I10 Essential (primary) hypertension (principal); E78.00 Pure hypercholesterolemia, unspecified; E55.9 Vitamin D deficiency, unspecified; R30.0 Dysuria
CPT/HCPCS: 36415; 80053; 80061; 81001; 81003; 82306; 84443; 85025

== ENCOUNTER 2023-04-13 07:12 | Outpatient (REF) | payer MEDICARE, SELFPAY ==
[2023-04-13 07:22] LABS: MANUAL DIFF FLAG NO
[2023-04-13 08:20] LABS: Basophils Absolute Auto 0.1 X10*3/uL (0.0-0.2); Basophils Percent Auto 1.2 % (0-2); Eosinophils Absolute Auto 0.2 X10*3/uL (0.0-0.4); Eosinophils Percent Auto 3.4 % (0-4); Hematocrit 39.7 % (37.0-47.0); Hemoglobin 12.7 g/dl (12.0-16.0); Imm Gran Abs Auto 0.01 X10*3/uL (0.00-0.03); Imm Gran Pct Auto 0.2 % (0.0-0.4); Lymphocytes Absolute Auto 1.3 X10*3/uL (1.2-4.9); Lymphocytes Percent Auto 26.2 % (20-40); Mean Corpuscular Hemoglobin 31.4 pg (27.0-33.0); Mean Platelet Volume 10.9 fL (9.4-12.3); Monocytes Absolute Auto 0.5 X10*3/uL (0.1-1.2); Monocytes Percent Auto 8.9 % (2-11); Neutrophils Absolute Auto 3.1 x10*3/uL (2.0-8.3); Neutrophils Percent Auto 60.1 % (45-73); Platelet Count 217 X10*3/uL (160-400); Red Blood Count 4.05 X10*6/uL (4.20-5.50); Red Cell Distribution Width 12.8 % (11.0-16.0); White Blood Count 5.1 X10*3/uL (4.8-10.8)
[2023-04-13 09:02] LABS: Appearance Urine Clear; Color Urine Yellow; Glucose Urine UA Negative (Negative); Leukocyte Esterase Urine Trace (Negative); Nitrite Urine Negative (Negative); PH 5.5 (5.0-9.0); UMIC TRIGGER UACC YES; Urine Blood Negative (Negative); Urine Ketones Negative (Negative); Urine Protein Negative (Neg-Trace)
[2023-04-13 09:07] LABS: Bacteria Urine None Seen (None Seen); Hyaline Casts Urine 0-2 /LPF (0-2); RBC Urine 0-2 /HPF (0-2); Squamous Epithelial Cell Urine 0-2 /HPF (0-2); WBC Urine 0-5 /HPF (0-5)
[2023-04-13 09:11] LABS: Alanine Aminotransferase 21 U/L (0-31); Albumin Level 4.1 g/dL (3.5-5.0); Alkaline Phosphatase 59 U/L (39-117); Anion Gap 11 (12-20); Aspartate Amino Transferase 18 U/L (5-31); Bilirubin Total 0.7 mg/dL (0.0-1.0); Blood Urea Nitrogen 12 mg/dL (9-16); Calcium 9.9 mg/dL (8.4-10.2); Carbon Dioxide 27 mmol/L (22-29); Chloride 110 mmol/L (96-108); Cholesterol 153 mg/dL (<200); Estimated Glomerular Filt Rate > 60; Glucose Fasting 84 mg/dL (60-99); HDL Cholesterol 53 mg/dL (>40); LDL Cholesterol Calculated 89 mg/dL (<100); Potassium 4.2 mmol/L (3.3-5.1); Sodium 144 mmol/L (135-145); Total Protein 6.5 g/dL (6.5-8.0); Triglycerides 56 mg/dL (<150)
[2023-04-13 09:12] LABS: TSH reflex Free T4 1.91 uIU/mL (0.32-4.0); Vitamin D 25-OH Total 70.8 ng/mL (>30)
== END 2023-04-13 07:13 | disposition home or self-care (01) ==
LOC: HO.LAB 07:12
PROVIDERS: Absent Provider Internal Medicine Endocrinology, Diabetes & Metabolism; PCP Internal Medicine; Visit Provider Internal Medicine
DX: E78.00 Pure hypercholesterolemia, unspecified (principal); E55.9 Vitamin D deficiency, unspecified; I10 Essential (primary) hypertension
CPT/HCPCS: 36415; 80053; 80061; 81001; 81003; 82306; 84443; 85025

== ENCOUNTER 2023-04-17 14:34 | Outpatient (AMB) | payer MEDICARE, SELFPAY ==
[2023-04-17 14:37] VITALS: BP 132/70; PULSE 66; O2SAT 97; BMI 24.0
--- NOTE | 2023-04-17 14:37 | MHC.PC.OV ---
Vital Signs 04/17/23 14:37 Height 5 ft 3 in Weight 135 lb 7 oz BMI 24.0 BP 132/70 Blood Pressure Location Lt brachial Position Sitting Pulse 66 Pulse Source Pulse Oximeter Pulse Oximetry (%) 97 Oxygen Delivery Method Room Air Intake Visit Reasons: hyperlipidemia, HTN, GERD Powder Core Tester Required: No Accompanied by: Self / Same As Patient Allergies No Known Allergies Allergy (Verified 04/17/23 15:08) Medication List - Last Reconciled 04/17/23 by Tristian Galvan MD ascorbic acid (vitamin C) mg PO atorvastatin 40 mg PO BEDTIME 90 days carbamide peroxide 6.5% (Debrox) 5 drps otic (ear) right Q12H 7 days cholecalciferol (vitamin D3) 25 mcg PO DAILY lisinopril 2.5 mg PO DAILY magnesium carbonate mg PO meclizine 25 mg PO TID PRN 30 days metoprolol succinate ER 25 mg PO BID 90 days multivitamin 1 tab PO DAILY omeprazole 20 mg PO DAILY 90 days Tobacco use date assessed: 04/17/23 Fall risk assessment: No Falls in past year Last assessed Fall Risk: 04/17/23 Dental Screening Dental Screen Date: 04/17/23 Did you have a dental visit in the last 12 months?: No Did you have a dental problem in the last 6 months where you did not have access to dental care?: No Was dental information given to patient?: No HPI hyperlipidemia, HTN, GERD HPI Details Patient comes in today for her follow up visit States that she feels okay Has been able to lose a lot of weight (>20 pounds) since her last visit by watching her diet and exercising regulalry She denies any headaches or dizziness Denies any chest pains, no SOB No nausea/vomiting, no abdominal pain No change in bowel habits noted Had her follow up labs done a few days ago - to discuss her results [facility] Medical History Galloway's esophagus Benign essential hypertension GERD (gastroesophageal reflux disease) Osteopenia Overweight (BMI 25.0-29.9) Patellar fracture Pure hypercholesterolemia Surgical History History of bladder suspension procedure History of cataract extraction History of esophagogastroduodenoscopy (EGD) Hx of colonoscopy Hx of hemorrhoidectomy Hx of hysterectomy Hx of tonsillectomy Family History Mother Angina pectoris Hearing loss Father Colon cancer, Onset Age: 91 Hearing loss Colon polyp Sister Brain tumor Paternal Grandfather Lung cancer Maternal Grandfather Myocardial infarction Maternal Grandmother Scarlet fever Other Substance abuse Social History Household Members: None Housing: Other 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 Are you a primary director of healthcare systems to a significant other at home: No Do you presently have visiting nurse or other home services: No Alcohol intake: former Patient Tobacco Use Status: Former Tobacco user Quit Date: 1990 e-Cigarette/Vaping Use: Never Used Second Hand Smoke Exposure: Yes service: No Current occupational status: retired Cognitive needs: No Hearing needs: No Vision needs: Yes Questionnaire PHQ-9 Over the last 2 weeks, how often have you been bothered by any of the following problems? 1. Little interest or pleasure in doing things: not at all 2. Feeling down, depressed, or hopeless: not at all 3. Trouble falling or staying asleep, or sleeping too much: not at all 4. Feeling tired or having little energy: not at all 5. Poor appetite or overeating: not at all 6. Feeling bad about yourself - or that you are a failure or have let yourself or your family down: not at all 7. Trouble concentrating on things, such as reading the newspaper or watching television: not at all 8. Moving or speaking so slowly that other people could have noticed. Or the opposite - being so fidgety or restless that you have been moving around a lot more than usual: not at all 9. Thoughts that you would be better off or of hurting yourself in some way: not at all Total score: 0 Depression Screening Interpretation: Negative 45842 - PHQ-9 Billing: Yes Source: Developed by Drs. Santos Prieto, Mamie Jason, Thomas Jacobson and colleagues, with an educational florian from [facility]. Thrive Questionnaire Date Thrive assessed: 04/17/23 I am a: Patient What is your living situation today?: I have a steady place to live Within the past 12 months, did the food you bought not last and you didn't have the money to get more?: Never true Within the past 12 months, did you worry whether your food would run out before you got money to buy more?: Never true Do you have trouble paying for medicines?: No Do you have trouble getting transportation to medical appointments?: No Do you have trouble paying your heating and electricity bill?: No Do you have trouble taking care of your child, family member or friend?: No Do you have trouble with day-to-day activities such as bathing, preparing meals, shopping, managing finances, etc.?: No Are you currently unemployed and looking for a job?: No Are you interested in more education?: No Please select the resources that you would like help with: None Currently or been in a relationship where the following occur: no concerns reported AUDIT C Alcohol Use Questionnaire (AUDIT-C) 1. How often do you have a drink containing alcohol?: Never 3. How often do you have six or more drinks on one occasion?: Never Total Score: 0 Score Reviewed/Action Taken: Yes GAIL-7 AMB Questionnaire GAIL-7 Date GAIL - 7 assessed: 04/17/23 Feeling nervous, anxious, or on edge: 0 = Not at all Not being able to stop or control worryin = Not at all Worrying too much about different things: 0 = Not at all Trouble relaxin = Not at all Being so restless that it is hard to sit still: 0 = Not at all Becoming easily annoyed or irritable: 0 = Not at all Feeling afraid as if something awful might happen: 0 = Not at all Total GAIL-7 score (0-4 normal; 5-9 mild; 10-14 moderate; 15-21 severe): 0 Source: Developed by Drs. Santos Prieto, Mamie Jason, Thomas Jacobson and colleagues, with an educational florian from [facility]. Review of Systems Const Denies fatigue, Denies fever(s) and Denies headache(s) ENT Denies dysphagia, Denies dizziness, Denies otalgia, Denies headache(s), Reports hearing loss (in right ear), Denies odynophagia, Reports tinnitus (increasing lately, especially in the right ear) and Denies sore throat Card Denies chest pain and Denies dyspnea Resp Denies cough and Denies dyspnea GI Denies abdominal pain, Denies constipation, Denies dysphagia, Denies diarrhea, Denies nausea, Denies odynophagia and Denies vomiting Denies nocturia and Denies dysuria Musc Reports back pain (over the lower back (on and off)) and Denies arthralgias Neuro Denies dizziness and Denies headache(s) Endo Denies fatigue Physical exam (Primary Care) Vital Signs: Last Vital Signs Pulse 66 04/17/23 14:37 BP 132/70 04/17/23 14:37 Pulse Ox 97 04/17/23 14:37 Oxygen Delivery Method Room Air 04/17/23 14:37 BMI result Body Mass Index 24.0 Tobacco/Smoking Status: Tobacco use Status Tobacco use date assessed 04/17/23 04/17/23 14:46 Patient Tobacco Use Status Former Tobacco user 04/17/23 14:46 e-Cigarette/Vaping Use Never Used 04/17/23 14:46 PHQ-9: PHQ-9 Score PHQ-9: Total score 0 04/17/23 14:46 Depression Screening Interpretation: Negative Thrive Assessment: Date of Thrive Assessment Date Thrive assessed 04/17/23 04/17/23 14:46 Currently or been in a relationship where the following occur: no concerns reported Const General: no acute distress and alert HENMT Ears: TM's normal bilaterally and EAC's normal Throat: Yes posterior oropharynx normal and Yes tonsils normal (no TP congestion noted) Neck Neck: Yes no lymphadenopathy and Yes supple Resp Auscultation: clear to auscultation bilaterally, no rales and no wheezes Cardio Rate: regular rate Rhythm: regular rhythm Heart sounds: no murmurs GI Palpation (GI): Soft to palpation and nontender Auscultation: normal bowel sounds Back/Spine/Pelvis Thoracic/Lumbar Spine: lumbar spinal tenderness Skin Rashes: no rashes Extrem General: Yes no clubbing, cyanosis or edema Left lower extremity: knee Details: no tenderness Results Reviewed Results Reviewed: Laboratory Tests 04/13/23 04/13/23 04/13/23 07:21 07:21 07:36 WBC 5.1 Hgb 12.7 Hct 39.7 Plt Count 217 Sodium 144 Potassium 4.2 Creatinine 0.73 Estimated GFR > 60 Fasting Glucose 84 Calcium 9.9 D AST 18 ALT 21 Triglycerides 56 Cholesterol 153 LDL Cholesterol, Calc 89 HDL Cholesterol 53 25-OH Vitamin D Total 70.8 TSH 1.91 Ur Specific Melvin 1.020 Urine Protein Negative Urine Glucose (UA) Negative Urine Blood Negative Assessment and Plan Assessment & Plan (1) Pure hypercholesterolemia: Code(s): E78.00 - Pure hypercholesterolemia, unspecified Plan: Results of her labs done a few days ago reviewed and discussed with patient - lipids have again improved significantly from previous Reinforced low cholesterol diet Continue Atorvastatin 40 mg QD (insurance would not cover her Rx for 2 tablets of Pravastatin 40 mg QD) Will recheck her labs and fasting lipids in 4 months for follow up (2) Benign essential hypertension: Code(s): I10 - Essential (primary) hypertension Plan: Reinforced low sodium diet - goal is systolic BP of at least 140 mm or less Continue Metoprolol ER 25 mg BID and Lisinopril 2.5 mg QD Patient is reminded to continue monitoring her blood pressure regularly (3) GERD (gastroesophageal reflux disease): Code(s): K21.9 - Gastro-esophageal reflux disease without esophagitis Qualifiers: Esophagitis presence: without esophagitis Qualified Code(s): K21.9 - Gastro-esophageal reflux disease without esophagitis Plan: Dietary restrictions reinforced Continue Omeprazole 20 mg QD EGD done in 2015 revealed findings of mild chronic gastritis; H. pylori was negative Follow up with GI as scheduled (4) Osteoporosis: Code(s): M81.0 - Age-related osteoporosis without current pathological fracture Qualifiers: Osteoporosis type: age-related Presence of current pathological fracture: without current pathological fracture Qualified Code(s): M81.0 - Age-related osteoporosis without current pathological fracture Plan: Repeat BMD done in December 2018 revealed osteopenia with a lowest T-score of -2.3 in the femoral neck; repeat BMD done more recently on 12/17/21 revealed (+) osteoporosis but no significant change from previous Has been prescribed Fosamax by Dr. Hernandez in the past but states that she did not want to take the Rx and has been taking OTC Calcium and Vitamin D daily instead Was referred to endocrinology for further evaluation and management and she is now seeing by Dr. Bello States that she will discuss her Tx options with Dr. Bello at her next follow up appt and is now considering going on Fosamax (5) Tinnitus: Code(s): H93.19 - Tinnitus, unspecified ear Qualifiers: Laterality: bilateral Qualified Code(s): H93.13 - Tinnitus, bilateral Plan: Patient feels that this is more prominent in the right ear and lately has been bothering her more and keeping her up at night Have advised patient that her tinnitus is most likely due to hearing loss and unfortunately does not have any effective treatment options other than hearing augmentation Have instructed her before to try keeping some low volume of sound or music at her bedside (like a small clock radio) on at all times during the night and this should help mask out a lot of the ringing sensation in her ear and allow her to get some sleep (6) Patellar fracture: Code(s): S82.009A - Unspecified fracture of unspecified patella, initial encounter for closed fracture Qualifiers: Encounter type: sequela Fracture type: closed Fracture morphology: unspecified fracture morphology Fracture alignment: nondisplaced Laterality: left Qualified Code(s): S82.002S - Unspecified fracture of left patella, sequela Plan: Resolved; did not require any surgical intervention and was treated with a T scope knee brace/immobilizer and non-weight bearing for a few weeks, followed by physical therapy Patient cut short her physical therapy sessions and was doing PT on her own at home as she could not continue with PT due to cost issues Follow up with orthopedics as scheduled or as needed (7) Overweight (BMI 25.0-29.9): Code(s): E66.3 - Overweight Plan: Reinforced diet/exercise as tolerated/lose weight Plan Follow up in 4 months Orders: Orders Comprehensive [place]. Panel Fast 4 Months E78.00 - Pure hypercholesterolemia, unspecified Lipid Panel 4 Months E78.00 - Pure hypercholesterolemia, unspecified TSH reflex Free T4 4 Months E78.00 - Pure hypercholesterolemia, unspecified Vitamin D 25-OH Total 4 Months E55.9 - Vitamin D deficiency, unspecified UA CC w/rflx Micro + Cult 4 Months R30.0 - Dysuria Coding Level of Care Code Est Pt Level 4 (16552) Diagnoses Pure hypercholesterolemia E78.00 Benign essential hypertension I10 GERD (gastroesophageal reflux disease) K21.9 Esophagitis presence: without esophagitis Osteoporosis M81.0 Osteoporosis type: age-related Presence of current pathological fracture: without current pathological fracture Tinnitus H93.13 Laterality: bilateral Patellar fracture S82.002S Encounter type: sequela Fracture type: closed Fracture morphology: unspecified fracture morphology Fracture alignment: nondisplaced Laterality: left Overweight (BMI 25.0-29.9) E66.3
== END 2023-04-17 15:21 | disposition home or self-care (01) ==
PROVIDERS: PCP Internal Medicine; Visit Provider Internal Medicine
DX: E78.00 Pure hypercholesterolemia, unspecified (principal); I10 Essential (primary) hypertension; K21.9 Gastro-esophageal reflux disease without esophagitis; M81.0 Age-related osteoporosis without current pathological fracture; H93.13 Tinnitus, bilateral; S82.002S Unspecified fracture of left patella, sequela; E66.3 Overweight
CPT/HCPCS: 99214

== ENCOUNTER 2023-04-23 10:25 | Outpatient (AMB) | payer MEDICARE, SELFPAY ==
[2023-04-23 10:27] VITALS: BP 122/58; PULSE 67; BMI 24.1
--- NOTE | 2023-04-23 10:27 | MHC.OFFVIS ---
Intake Vital Signs 04/23/23 10:27 Height 5 ft 3 in Weight 136 lb 3.931 oz BMI 24.1 BP 122/58 L Blood Pressure Location Lt brachial Position Sitting Pulse 67 Pulse Source Pulse Oximeter Intake Visit Reasons: f/u osteoporosis Intake Note: Patient present for Osteoporosis follow up visit. Obiee Obia Solution Architect Required: No Accompanied by: Self / Same As Patient Allergies No Known Allergies Allergy (Verified 04/23/23 10:35) HPI HPI Comments History of Present Illness Details 72 YO Female with PMHx patellar fx is seen in consultation at the request of PCP for Osteoporosis. First diagnosed in 2 yrs ago . Received treatment in the past with Fosamax but didn't take it , n. No history of pathologic fracture or ONJ. Fxed patellar and elbow with hard fall. Fxed L4 compression fx sonya gup storage unit Has several servings of dietary calcium per day in the form of cheese and yogurt . Takes Calcium supplement ? mg daily in divided doses. Takes ? IU of Vitamin D daily. Denies ever using PPI, anticoagulant, antiepileptic or glucocorticoid medication. Does some weight bearing exercise once a mo . 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 UTD on dental cleanings and sees dentist every 6 months. No planned upcoming dental work or extractions. DXA dated 12/17/2021:[facility] [place] Secondary workup was negative Here today to discuss alternatives to oral bisphosphonate [address] [place] [address] [place] [address] Mammography Report Signed Patient: Melanie Quiros Date of Service: 12/17/21 Follow Up: Procedure(s): XR DEXA axial skeleton Accession Number(s): [id number] cc: Tristian Galvan MD~ EXAMINATION: BONE DENSITOMETRY CLINICAL INDICATION: Asymptomatic. COMPARISON: Previous BD dated 01/06/2019 and baseline BD dated 07/27/2007. TECHNIQUE: Using a [facility] DXA System (software version: 13.1) manufactured by [employer], dual-energy x-ray absorptiometry was performed of the lumbar spine and left hip. The images are of good technical quality. Summary results are attached. FINDINGS: AP SPINE L1-L4:? Current: BMD 0.944 g/cm2, Z-score -0.4, T-score -2.0, osteopenia, 5.3% decrease from previous, 5.4% decrease from baseline (<5% change is not significant). Prior: BMD 0.933 g/cm2. Baseline: BMD 0.937 g/cm2. LEFT FEMUR, NECK: Current: BMD 0.678 g/cm2, Z-score -0.9, T-score -2.6, osteoporosis. Prior: BMD 0.713 g/cm2. Baseline: BMD 0.735 g/cm2. LEFT FEMUR, TOTAL: Current: BMD 0.733 g/cm2, Z-score -0.7, T-score -2.2, osteopenia, 1.9% decrease from previous, 4.1% decrease from baseline (<5% change is not significant). Prior: BMD 0.747 g/cm2. Baseline: BMD 0.764 g/cm2. IDENTIFIED RISK FACTORS: Recurrent falls, height loss, history of fracture (adult). Early menopause, secondary osteoporosis, hysterectomy, right oophorectomy. HISTORY OF FRACTURE: L5 vertebral body, elbow, wrist, patella. MEDICATIONS: Calcium supplements or multivitamin, vitamin D. MM/XR DEXA axial skeleton IMPRESSION: 1. DIAGNOSIS: Osteoporosis based on the lowest T-score Labs: [facility], [facility] Medical History Galloway's esophagus Benign essential hypertension GERD (gastroesophageal reflux disease) Osteopenia Overweight (BMI 25.0-29.9) Patellar fracture Pure hypercholesterolemia Surgical History History of bladder suspension procedure History of cataract extraction History of esophagogastroduodenoscopy (EGD) Hx of colonoscopy Hx of hemorrhoidectomy Hx of hysterectomy Hx of tonsillectomy Family History Mother Angina pectoris Hearing loss Father Colon cancer, Onset Age: 91 Hearing loss Colon polyp Sister Brain tumor Paternal Grandfather Lung cancer Maternal Grandfather Myocardial infarction Maternal Grandmother Scarlet fever Other Substance abuse Social History Household Members: None Housing: Other 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 Are you a primary health care consultant to a significant other at home: No Do you presently have visiting nurse or other home services: No Alcohol intake: former Patient Tobacco Use Status: Former Tobacco user Quit Date: 1990 e-Cigarette/Vaping Use: Never Used Second Hand Smoke Exposure: Yes service: No Current occupational status: retired Cognitive needs: No Hearing needs: No Vision needs: Yes Assessment & Plan Assessment & Plan (1) Osteoporosis: Code(s): M81.0 - Age-related osteoporosis without current pathological fracture Qualifiers: Osteoporosis type: age-related Presence of current pathological fracture: without current pathological fracture Qualified Code(s): M81.0 - Age-related osteoporosis without current pathological fracture Plan: This 71-year-old white female with a history of osteoporosis and several falls and fractures. Secondary workup was negative After a careful discussion with the patient, she is opting to go on to alendronate. Will start 70 mg of alendronate once weekly. Went over how to take the drug with a glass of water and no food and to remain upright for 30-60 minutes.. Medications: New alendronate 70 mg PO QWEEK 5 tabs 11RF Coding Level of Care Code Est Pt Level 3 (73362) Diagnoses Age-related osteoporosis without current pathological fracture M81.0 Osteoporosis type: age-related Presence of current pathological fracture: without current pathological fracture
== END 2023-04-23 11:28 | disposition home or self-care (01) ==
PROVIDERS: PCP Internal Medicine; Referring Provider Internal Medicine; Visit Provider Internal Medicine Endocrinology, Diabetes & Metabolism
DX: M81.0 Age-related osteoporosis without current pathological fracture (principal)
CPT/HCPCS: 99213

== ENCOUNTER → 2023-04-23 10:25 | Outpatient (BNVA) | payer MEDICARE, SELFPAY | PROVIDERS: Visit Provider Internal Medicine Endocrinology, Diabetes & Metabolism | DX: M81.0 Age-related osteoporosis without current pathological fracture (principal) | CPT/HCPCS: 99212 ==

== ENCOUNTER 2023-05-07 08:20 | Outpatient (REF) | payer MEDICARE, SELFPAY | END 2023-05-07 08:21 | disposition home or self-care (01) | LOC: HO.MAMMO 08:20 | PROVIDERS: PCP Internal Medicine; Visit Provider Internal Medicine | DX: Z12.31 Encounter for screening mammogram for malignant neoplasm of breast (principal) | CPT/HCPCS: 77063; 77067 ==

== ENCOUNTER → 2023-05-07 08:30 | Outpatient (BNV) | payer MEDICARE, SELFPAY | PROVIDERS: PCP Internal Medicine; Visit Provider Radiology Diagnostic Radiology | DX: Z12.31 Encounter for screening mammogram for malignant neoplasm of breast (principal) | CPT/HCPCS: 77063; 77067 ==

== ENCOUNTER 2023-09-10 13:06 | Outpatient (AMB) | payer MEDICARE, SELFPAY ==
[2023-09-10 13:10] VITALS: BP 120/53; PULSE 64; BMI 24.4
--- NOTE | 2023-09-10 13:10 | MHC.OFFVIS ---
Intake Vital Signs 09/10/23 13:10 Height 5 ft 3 in Weight 138 lb 0.5 oz BMI 24.4 BP 120/53 L Blood Pressure Location Lt brachial Position Sitting Pulse 64 Intake Visit Reasons: abdominal pain Intake Note: Melanie presents in the office as a 6 month follow up for GERD and TA Colonoscopy. CC: Patient states when she wakes up in the morning she feels sick , weak and nauseous, but 10-15 mins after she feels fine. Denies other GI symptoms today. 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 She is agreeable to a 5 year follow up. She continues to do well with her heartburn it appears that her primary changed her from pantoprazole back to omeprazole 20 mg a day I am uncertain why they decided to make that change.. I had made famotidine available to her for occasional breakthrough but she has not needed to use it recently. She is aware will put her on a 5 year recall list but she of course also continues to follow with me. Return office visit in 6 months. Assessment & Plan (1) GERD (gastroesophageal reflux disease): Code(s): K21.9 - Gastro-esophageal reflux disease without esophagitis Qualifiers: Esophagitis presence: without esophagitis Qualified Code(s): K21.9 - Gastro-esophageal reflux disease without esophagitis (2) Family history of colon cancer: Comment: 2019 and 3 sessile serrated adenomas, 2021 scope equals 1 large TA repeat in 5 years Code(s): Z80.0 - Family history of malignant neoplasm of digestive organs TODAY'S VISIT This patient has been lost to follow-up since 02/04/2022 She is having am nausea again, and you gave me some pills in the past that worked well, but then it stopped so I did not need the pills. She thinks the pill was famotidine. I will make this available again. She continues on omeprazole 20 mg once a day. She is also on alendronate which could be contributing to her symptoms since this is a driving factor to GERD. Otherwise, no abd pain, no CIC/diarrhea, no new medications otherwise. She has been drinking green tea with honey to detox my liver, but I check her labs and there is no liver dysfunction. But green tea does have a lot of antioxidants and good nutrition, so there is no harm in this. She did not want to come in r/t the copay, but this can't be helped. I will see her in 6 weeks to be sure it is working, and then we can go to once a year if she is stable. ROV 6 weeks. [facility] [place] Medical History Patellar fracture Osteopenia Galloway's esophagus Overweight (BMI 25.0-29.9) Pure hypercholesterolemia Benign essential hypertension GERD (gastroesophageal reflux disease) Surgical History History of cataract extraction Hx of tonsillectomy Hx of hysterectomy Hx of hemorrhoidectomy History of bladder suspension procedure History of esophagogastroduodenoscopy (EGD) Hx of colonoscopy Family History Mother Angina pectoris Hearing loss Father Colon cancer, Onset Age: 91 Hearing loss Colon polyp Sister Brain tumor Paternal Grandfather Lung cancer Maternal Grandfather Myocardial infarction Maternal Grandmother Scarlet fever Other Substance abuse Social History Household Members: None Housing: Other 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 Are you a primary healthcare business analyst to a significant other at home: No Do you presently have visiting nurse or other home services: No Alcohol intake: former Patient Tobacco Use Status: Former Tobacco user Quit Date: 1990 e-Cigarette/Vaping Use: Never Used Second Hand Smoke Exposure: Yes service: No Current occupational status: retired Cognitive needs: No Hearing needs: No Vision needs: Yes Review of Systems Const Denies fatigue, Denies fever(s), Denies night sweats, Denies poor appetite and Denies weight loss Eyes Details: glasses Reports requires corrective lenses ENT Reports Normal hearing present, Denies dental pain, Denies dysphagia, Denies hearing loss, Denies mouth pain, Denies odynophagia, Denies throat swelling, Denies tongue swelling and Reports other (Dentition adequate) Card Reports no additional complaints Resp Reports no additional complaints GI Denies abdominal pain, Denies melena, Denies bloating, Denies hematochezia, Denies constipation, Denies GI cramping, Denies dysphagia, Denies excessive flatus, Denies early satiety, Denies heartburn, Denies diarrhea, Reports nausea, Denies odynophagia, Denies vomiting and Denies hematemesis Skin/Breast Denies pruritus, Denies lesions, Denies rash and Denies jaundice Neuro Reports Normal hearing present and Denies Abnormal speech present Endo Denies fatigue Aller/Immun Denies throat swelling and Denies tongue swelling Physical Exam Vital Signs: Last Vital Signs Pulse 64 09/10/23 13:10 BP 120/53 L 09/10/23 13:10 BMI result Body Mass Index 24.4 Const General: cooperative, no acute distress, well developed and well groomed Nutritional Appearance: average body habitus and well nourished Orientation/consciousness: oriented to person, oriented to place and oriented to time Limitations: No language barrier HEENT Head: Yes normocephalic and Yes atraumatic Eyes General: appearance normal, both eyes and all related structures Pupils: Equal, round and reactive pupils present Neck Neck: Yes normal visual inspection and Yes no lymphadenopathy Thyroid: Thyroid normal Resp Effort & Inspection: normal respiratory effort and able to speak in complete sentences Auscultation: clear to auscultation bilaterally Cardio Rate: regular rate Rhythm: regular rhythm Heart sounds: Normal, physiologic split S2 sound present Peripheral pulses: radial pulses present and posterior tibial pulses present GI Inspection: No distended and No Abdominal panniculus present Palpation (GI): Soft to palpation, nontender, no guarding, not rigid and No hepatosplenomegaly present Percussion: Yes normal to percussion Auscultation: normal bowel sounds Rectal Exam - Female: deferred Skin General skin exam: no rashes or lesions noted, turgor normal, skin not dry, no jaundice, No spider nevi and no striae Rashes: no rashes Nails: normal Neuro General: oriented to person, oriented to place and oriented to time Cranial nerves: Yes Equal, round and reactive pupils present and Yes Normal hearing present Speech: No Abnormal speech present Extrem General: Yes normal to inspection, No clubbing, No cyanosis and No edema Psych Appearance: grossly normal and well kempt Mental Status: mental status grossly normal Speech and movement: Normal speech and movement present Affect: normal affect Attitude: cooperative Thought process: Normal thought process present and not confabulating Thought content: Normal thought content present Insight: Limited insight present (Psych) Judgement: Limited judgement present (Psych) Assessment & Plan Assessment & Plan (1) Galloway's esophagus: Comment: 2020 EGD shows resolution of the Galloway's with no metaplasia Code(s): K22.70 - Galloway's esophagus without dysplasia (2) GERD (gastroesophageal reflux disease): Code(s): K21.9 - Gastro-esophageal reflux disease without esophagitis Qualifiers: Esophagitis presence: without esophagitis Qualified Code(s): K21.9 - Gastro-esophageal reflux disease without esophagitis (3) Dysphagia: Comment: xochitls ring,, Hx of L side neck pain/ spasm. Hx of anterior osteophytes on barium swallow and cervical DDD. Code(s): R13.10 - Dysphagia, unspecified Plan This patient has been lost to follow-up since 02/04/2022 She is having am nausea again, and you gave me some pills in the past that worked well, but then it stopped so I did not need the pills. She thinks the pill was famotidine. I will make this available again. She continues on omeprazole 20 mg once a day. She is also on alendronate which could be contributing to her symptoms since this is a driving factor to GERD. Otherwise, no abd pain, no CIC/diarrhea, no new medications otherwise. She has been drinking green tea with honey to detox my liver, but I check her labs and there is no liver dysfunction. But green tea does have a lot of antioxidants and good nutrition, so there is no harm in this. She did not want to come in r/t the copay, but this can't be helped. I will see her in 6 weeks to be sure it is working, and then we can go to once a year if she is stable. ROV 6 weeks. Medications: New famotidine (Pepcid) 40 mg PO BEDTIME 30 tabs 12RF Coding Level of Care Code Est Pt Level 3 (38445) Diagnoses Galloway's esophagus K22.70 Gastroesophageal reflux disease without esophagitis K21.9 Esophagitis presence: without esophagitis Dysphagia R13.10
== END 2023-09-10 13:43 | disposition home or self-care (01) ==
PROVIDERS: PCP Internal Medicine; Referring Provider Internal Medicine; Visit Provider Nurse Practitioner
DX: K22.70 Barrett's esophagus without dysplasia (principal); K21.9 Gastro-esophageal reflux disease without esophagitis; R13.10 Dysphagia, unspecified
CPT/HCPCS: 99213

== ENCOUNTER → 2023-09-10 13:06 | Outpatient (BNVA) | payer MEDICARE, SELFPAY | PROVIDERS: PCP Internal Medicine; Visit Provider Nurse Practitioner | DX: K22.70 Barrett's esophagus without dysplasia (principal); K21.9 Gastro-esophageal reflux disease without esophagitis; R13.10 Dysphagia, unspecified | CPT/HCPCS: 99212 ==

== ENCOUNTER 2023-09-23 06:52 | Outpatient (REF) | payer MEDICARE, SELFPAY ==
[2023-09-23 08:09] LABS: Alanine Aminotransferase 15 U/L (0-31); Albumin Level 4.1 g/dL (3.5-5.0); Alkaline Phosphatase 52 U/L (39-117); Anion Gap 11 (12-20); Aspartate Amino Transferase 15 U/L (5-31); Bilirubin Total 0.7 mg/dL (0.0-1.0); Blood Urea Nitrogen 11 mg/dL (9-16); Calcium 9.3 mg/dL (8.4-10.2); Carbon Dioxide 27 mmol/L (22-29); Chloride 108 mmol/L (96-108); Cholesterol 136 mg/dL (<200); Estimated Glomerular Filt Rate > 60; Glucose Fasting 89 mg/dL (60-99); HDL Cholesterol 53 mg/dL (>40); LDL Cholesterol Calculated 75 mg/dL (<100); Potassium 4.1 mmol/L (3.3-5.1); Sodium 142 mmol/L (135-145); Total Protein 6.4 g/dL (6.5-8.0); Triglycerides 42 mg/dL (<150)
[2023-09-23 08:19] LABS: Appearance Urine Clear; Color Urine Yellow; Glucose Urine UA Negative (Negative); Leukocyte Esterase Urine Small (1+) (Negative); Nitrite Urine Negative (Negative); PH 5.5 (5.0-9.0); UMIC TRIGGER UACC YES; Urine Blood Negative (Negative); Urine Ketones Negative (Negative); Urine Protein Negative (Neg-Trace)
[2023-09-23 09:08] LABS: Bacteria Urine None Seen (None Seen); Hyaline Casts Urine 0-2 /LPF (0-2); RBC Urine 0-2 /HPF (0-2); Squamous Epithelial Cell Urine 0-2 /HPF (0-2); UACC Culture Trigger YES; WBC Urine 0-5 /HPF (0-5)
[2023-09-23 09:12] LABS: Vitamin D 25-OH Total 49.3 ng/mL (>30)
== END 2023-09-23 06:53 | disposition home or self-care (01) ==
LOC: HO.LAB 06:52
PROVIDERS: PCP Internal Medicine; Visit Provider Internal Medicine
DX: E78.00 Pure hypercholesterolemia, unspecified (principal); E55.9 Vitamin D deficiency, unspecified
CPT/HCPCS: 36415; 80053; 80061; 81001; 81003; 82306; 84443; 87086

== ENCOUNTER 2023-09-25 13:36 | Outpatient (AMB) | payer MEDICARE, SELFPAY ==
[2023-09-25 13:46] VITALS: BP 130/74; PULSE 64; O2SAT 97; BMI 24.4
--- NOTE | 2023-09-25 13:46 | A.OFFPC_ITS ---
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 Required: No Accompanied by: Self / Same As Patient Allergies No Known Allergies Allergy (Verified 09/25/23 14:16) Medication List - Last Reconciled 09/25/23 by Tristian Galvan MD alendronate 70 mg PO QWEEK ascorbic acid (vitamin C) 500 mg PO .QD atorvastatin 40 mg PO BEDTIME 90 days cholecalciferol (vitamin D3) 25 mcg PO DAILY famotidine (Pepcid) 40 mg PO BEDTIME lisinopril 2.5 mg PO DAILY magnesium carbonate 250 mg PO .QD meclizine 25 mg PO TID PRN 30 days metoprolol succinate ER 25 mg PO BID 90 days multivitamin 1 tab PO DAILY omeprazole 20 mg PO DAILY 90 days Tobacco use date assessed: 09/25/23 Fall risk assessment: No Falls in past year Last assessed Fall Risk: 09/25/23 Dental Screening Dental Screen Date: 09/25/23 Did you have a dental visit in the last 12 months?: No Did you have a dental problem in the last 6 months where you did not have access to dental care?: No Was dental information given to patient?: No HPI hyperlipidemia ,HTN HPI Details Patient comes in today for her follow up visit States that she feels okay She denies any headaches or dizziness Denies any chest pains, no SOB No nausea/vomiting, no abdominal pain No change in bowel habits noted Had her follow up labs done a couple of days ago - to discuss her results [facility] Medical History Patellar fracture Osteopenia Galloway's esophagus Overweight (BMI 25.0-29.9) Pure hypercholesterolemia Benign essential hypertension GERD (gastroesophageal reflux disease) Surgical History History of cataract extraction Hx of tonsillectomy Hx of hysterectomy Hx of hemorrhoidectomy History of bladder suspension procedure History of esophagogastroduodenoscopy (EGD) Hx of colonoscopy Family History Mother Angina pectoris Hearing loss Father Colon cancer, Onset Age: 91 Hearing loss Colon polyp Sister Brain tumor Paternal Grandfather Lung cancer Maternal Grandfather Myocardial infarction Maternal Grandmother Scarlet fever Other Substance abuse Social History Household Members: None Housing: Other 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 Are you a primary summer child caregiver to a significant other at home: No Do you presently have visiting nurse or other home services: No Alcohol intake: former Patient Tobacco Use Status: Former Tobacco user Quit Date: 1990 e-Cigarette/Vaping Use: Never Used Second Hand Smoke Exposure: Yes service: No Current occupational status: retired Cognitive needs: No Hearing needs: No Vision needs: Yes Questionnaire PHQ-9 Over the last 2 weeks, how often have you been bothered by any of the following problems? 1. Little interest or pleasure in doing things: not at all 2. Feeling down, depressed, or hopeless: not at all 3. Trouble falling or staying asleep, or sleeping too much: not at all 4. Feeling tired or having little energy: not at all 5. Poor appetite or overeating: not at all 6. Feeling bad about yourself - or that you are a failure or have let yourself or your family down: not at all 7. Trouble concentrating on things, such as reading the newspaper or watching television: not at all 8. Moving or speaking so slowly that other people could have noticed. Or the opposite - being so fidgety or restless that you have been moving around a lot more than usual: not at all 9. Thoughts that you would be better off or of hurting yourself in some way: not at all Total score: 0 Depression Screening Interpretation: Negative Depression Screening Done: Yes 99944 - PHQ-9 Billing: Yes Source: Developed by Drs. Santos Prieto, Mamie Jason, Thomas Jacobson and colleagues, with an educational florian from [employer]. Thrive Questionnaire Date Thrive assessed: 09/25/23 I am a: Patient What is your living situation today?: I have a steady place to live Within the past 12 months, did the food you bought not last and you didn't have the money to get more?: Never true Within the past 12 months, did you worry whether your food would run out before you got money to buy more?: Never true Do you have trouble paying for medicines?: No Do you have trouble getting transportation to medical appointments?: No Do you have trouble paying your heating and electricity bill?: No Do you have trouble taking care of your child, family member or friend?: No Do you have trouble with day-to-day activities such as bathing, preparing meals, shopping, managing finances, etc.?: No Are you currently unemployed and looking for a job?: No Are you interested in more education?: No Please select the resources that you would like help with: None Currently or been in a relationship where the following occur: no concerns reported THRIVE Score: 0 AUDIT C Alcohol Use Questionnaire (AUDIT-C) 1. How often do you have a drink containing alcohol?: Never 3. How often do you have six or more drinks on one occasion?: Never Total Score: 0 Score Reviewed/Action Taken: Yes GAIL-7 AMB Questionnaire GAIL-7 Date GAIL - 7 assessed: 09/25/23 Feeling nervous, anxious, or on edge: 0 = Not at all Not being able to stop or control worryin = Not at all Worrying too much about different things: 0 = Not at all Trouble relaxin = Not at all Being so restless that it is hard to sit still: 0 = Not at all Becoming easily annoyed or irritable: 0 = Not at all Feeling afraid as if something awful might happen: 0 = Not at all Total GAIL-7 score (0-4 normal; 5-9 mild; 10-14 moderate; 15-21 severe): 0 Source: Developed by Drs. Santos Prieto, Mamie Jason, Thomas Jacobson and colleagues, with an educational florian from [employer]. Review of Systems Const Denies fatigue, Denies fever(s) and Denies headache(s) ENT Denies dysphagia, Denies dizziness, Denies otalgia, Denies headache(s), Reports hearing loss (in right ear), Denies neck pain, Denies odynophagia, Reports tinnitus (more prominent in the right ear) and Denies sore throat Card Denies chest pain and Denies dyspnea Resp Denies chest congestion, Denies cough and Denies dyspnea GI Denies abdominal pain, Denies constipation, Denies dysphagia, Denies diarrhea, Denies nausea, Denies odynophagia and Denies vomiting Denies nocturia, Denies dysuria and Denies urinary urgency Musc Reports back pain (over the lower back (on and off)), Denies arthralgias and Denies neck pain Skin/Breast Denies rash Neuro Denies dizziness and Denies headache(s) Endo Denies fatigue Physical exam (Primary Care) Vital Signs: Last Vital Signs Pulse 64 09/25/23 13:46 BP 130/74 09/25/23 13:46 Pulse Ox 97 09/25/23 13:46 Oxygen Delivery Method Room Air 09/25/23 13:46 BMI result Body Mass Index 24.4 Tobacco/Smoking Status: Tobacco use Status Tobacco use date assessed 09/25/23 09/25/23 13:48 Patient Tobacco Use Status Former Tobacco user 09/25/23 13:48 e-Cigarette/Vaping Use Never Used 09/25/23 13:48 PHQ-9: PHQ-9 Score PHQ-9: Total score 0 09/25/23 13:58 Depression Screening Interpretation: Negative Thrive Assessment: Date of Thrive Assessment Date Thrive assessed 09/25/23 09/25/23 13:48 Currently or been in a relationship where the following occur: no concerns reported Const General: no acute distress and alert HENMT Ears: TM's normal bilaterally and EAC's normal Throat: Yes posterior oropharynx normal and Yes tonsils normal (no TP congestion noted) Neck Neck: Yes no lymphadenopathy and Yes supple Resp Auscultation: clear to auscultation bilaterally, no rales and no wheezes Cardio Rate: regular rate Rhythm: regular rhythm Heart sounds: no murmurs GI Palpation (GI): Soft to palpation and nontender Auscultation: normal bowel sounds Back/Spine/Pelvis Thoracic/Lumbar Spine: lumbar spinal tenderness Skin Rashes: no rashes Extrem General: Yes no clubbing, cyanosis or edema Left lower extremity: knee Details: no tenderness Results Reviewed Results Reviewed: Laboratory Tests 09/23/23 09/23/23 07:11 07:13 Sodium 142 Potassium 4.1 Creatinine 0.83 Estimated GFR > 60 Fasting Glucose 89 Calcium 9.3 D AST 15 ALT 15 Triglycerides 42 Cholesterol 136 LDL Cholesterol, Calc 75 HDL Cholesterol 53 25-OH Vitamin D Total 49.3 TSH 2.70 Ur Specific [place] 1.010 Urine Protein Negative Urine Glucose (UA) Negative Urine Blood Negative Urine Nitrite Negative Ur Leukocyte Esterase Small (1+) H Assessment and Plan Assessment & Plan (1) Pure hypercholesterolemia: Code(s): E78.00 - Pure hypercholesterolemia, unspecified Plan: Results of her labs done a couple of days ago reviewed and discussed with patient - lipids have again improved from previous Reinforced low cholesterol diet Continue Atorvastatin 40 mg QD Will recheck her labs and fasting lipids in 4 months for follow up (2) Benign essential hypertension: Code(s): I10 - Essential (primary) hypertension Plan: Reinforced low sodium diet - goal is systolic BP of at least 140 mm or less Continue Metoprolol ER 25 mg BID and Lisinopril 2.5 mg QD Patient is reminded to continue monitoring her blood pressure regularly (3) GERD (gastroesophageal reflux disease): Code(s): K21.9 - Gastro-esophageal reflux disease without esophagitis Qualifiers: Esophagitis presence: without esophagitis Qualified Code(s): K21.9 - Gastro-esophageal reflux disease without esophagitis Plan: Dietary restrictions reinforced Continue Omeprazole 20 mg QD; she was started additionally on Famotidine 40 mh Q HS PRN by November [place] EGD done in 2015 revealed findings of mild chronic gastritis; H. pylori was negative Follow up with GI as scheduled (4) Osteoporosis: Code(s): M81.0 - Age-related osteoporosis without current pathological fracture Qualifiers: Osteoporosis type: age-related Presence of current pathological fracture: without current pathological fracture Qualified Code(s): M81.0 - Age- related osteoporosis without current pathological fracture Plan: Repeat BMD done in December 2018 revealed osteopenia with a lowest T-score of -2.3 in the femoral neck; repeat BMD done more recently on 12/17/21 revealed (+) osteoporosis but no significant change from previous Has been prescribed Fosamax by Dr. Hernandez in the past but she did not want to take the Rx and has been taking OTC Calcium and Vitamin D daily instead Was referred to endocrinology for further evaluation and management and she is now seeing by Dr. Bello Was started back on Alendronate (Fosamax) by Dr. Bello (5) Tinnitus: Code(s): H93.19 - Tinnitus, unspecified ear Qualifiers: Laterality: bilateral Qualified Code(s): H93.13 - Tinnitus, bilateral Plan: Patient feels that this is more prominent in the right ear and lately has been bothering her more and keeping her up at night Have advised patient that her tinnitus is most likely due to hearing loss and unfortunately does not have any effective treatment options other than hearing augmentation Have instructed her before to try keeping some low volume of sound or music at her bedside (like a small clock radio) on at all times during the night and this should help mask out a lot of the ringing sensation in her ear and allow her to get some sleep (6) Overweight (BMI 25.0-29.9): Code(s): E66.3 - Overweight Plan: Reinforced diet/exercise as tolerated/lose weight Plan Follow up in 4 months Orders: Orders Complete Blood Count Auto Diff 4 Months D64.9 - Anemia, unspecified Lipid Panel 4 Months E78.00 - Pure hypercholesterolemia, unspecified TSH reflex Free T4 4 Months E78.00 - Pure hypercholesterolemia, unspecified UA CC w/rflx Micro + Cult 4 Months R30.0 - Dysuria Comprehensive [place]. Panel Fast 4 Months E78.00 - Pure hypercholesterolemia, unspecified Vitamin D 25-OH Total 4 Months E55.9 - Vitamin D deficiency, unspecified Coding Level of Care Code Est Pt Level 4 (43727) Diagnoses Pure hypercholesterolemia E78.00 Benign essential hypertension I10 Gastroesophageal reflux disease without esophagitis K21.9 Esophagitis presence: without esophagitis Age-related osteoporosis without current pathological fracture M81.0 Osteoporosis type: age-related Presence of current pathological fracture: without current pathological fracture Tinnitus of both ears H93.13 Laterality: bilateral Overweight (BMI 25.0-29.9) E66.3
== END 2023-09-25 14:39 | disposition home or self-care (01) ==
PROVIDERS: PCP Internal Medicine; Visit Provider Internal Medicine
DX: E78.00 Pure hypercholesterolemia, unspecified (principal); I10 Essential (primary) hypertension; K21.9 Gastro-esophageal reflux disease without esophagitis; M81.0 Age-related osteoporosis without current pathological fracture; H93.13 Tinnitus, bilateral; E66.3 Overweight
CPT/HCPCS: 99214

== ENCOUNTER 2023-12-16 15:20 | Outpatient (AMB) | payer MEDICARE, SELFPAY ==
--- NOTE | 2023-12-16 15:22 | A.OFFVIS_ITS ---
Vital Signs 12/16/23 15:23 Height 5 ft 3 in Weight 144 lb 2.917 oz BMI 25.5 BP 143/67 H Blood Pressure Location Lt brachial Position Sitting Pulse 69 Intake Visit Reasons: F/U 6 weeks Intake Note: Melanie presents in the office as a 6 month follow up for GERD and TA Colonoscopy. CC: Patient states she always feels sick in the morning and still has nausea and. She states that she went the urgent care yesterday because she pulled a muscle and her BP was high. Corrugator Required: No Accompanied by: Self / Same As Patient Allergies No Known Allergies Allergy (Verified 12/16/23 15:26) HPI HPI F/U 6 weeks: Details: Assessment & Plan (1) Galloway's esophagus: Comment: 2020 EGD shows resolution of the Galloway's with no metaplasia Code(s): K22.70 - Galloway's esophagus without dysplasia (2) GERD (gastroesophageal reflux disease): Code(s): K21.9 - Gastro-esophageal reflux disease without esophagitis Qualifiers: Esophagitis presence: without esophagitis Qualified Code(s): K21.9 - Gastro-esophageal reflux disease without esophagitis (3) Dysphagia: Comment: ingrid dorman,, Hx of L side neck pain/ spasm. Hx of anterior osteophytes on barium swallow and cervical DDD. Code(s): R13.10 - Dysphagia, unspecified Plan This patient has been lost to follow-up since 02/04/2022 She is having am nausea again, and you gave me some pills in the past that worked well, but then it stopped so I did not need the pills. She thinks the pill was famotidine. I will make this available again. She continues on omeprazole 20 mg once a day. She is also on alendronate which could be contributing to her symptoms since this is a driving factor to GERD. Otherwise, no abd pain, no CIC/diarrhea, no new medications otherwise. She has been drinking green tea with honey to detox my liver, but I check her labs and there is no liver dysfunction. But green tea does have a lot of antioxidants and good nutrition, so there is no harm in this. She did not want to come in r/t the copay, but this can't be helped. I will see her in 6 weeks to be sure it is working, and then we can go to once a year if she is stable. ROV 6 weeks. Medications: New famotidine (Pepcid) 40 mg PO BEDTIME 30 tabs 12RF TODAY'S VISIT She took the famotidine for 2 weeks but this did not help her nausea. she has dizziness preceding this every am, and since the medication did not work I suspect that the dizziness is causing the nausea and I suspect that she has intermittent vertigo. I do not think this is a primary GI process - especially since she has been told in the past that she has vertigo. She also has had sudden onset of sx in the middle of the day. She has used meclizine in the past, and I recommend that she try this. She laments that her omeprazole was decreased from bid to qd, but I believe this was r/t her osteoporosis and alendronate therapy. She pulled a muscle in her neck. This would prevent me suggesting PT for vertigo. She DOES admit that looking up to get something from a shelf and sudden changes of her head position set off her dizziness. Follow with PCP and return to gastro PRN since her last EGD showed resolution of SSBE. [facility] Medical History Patellar fracture Osteopenia Galloway's esophagus Overweight (BMI 25.0-29.9) Pure hypercholesterolemia Benign essential hypertension GERD (gastroesophageal reflux disease) Surgical History History of cataract extraction Hx of tonsillectomy Hx of hysterectomy Hx of hemorrhoidectomy History of bladder suspension procedure History of esophagogastroduodenoscopy (EGD) Hx of colonoscopy Family History Mother Angina pectoris Hearing loss Father Colon cancer, Onset Age: 91 Hearing loss Colon polyp Sister Brain tumor Paternal Grandfather Lung cancer Maternal Grandfather Myocardial infarction Maternal Grandmother Scarlet fever Other Substance abuse Social History (Reviewed 12/16/23 @ 15:29 by Avelina Ackerman [facility] Household Members: None Housing: Other 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 Are you a primary interior plant caretaker to a significant other at home: No Do you presently have visiting nurse or other home services: No Alcohol intake: former Patient Tobacco Use Status: Former Tobacco user Quit Date: 1990 e-Cigarette/Vaping Use: Never Used Second Hand Smoke Exposure: Yes service: No Current occupational status: retired Cognitive needs: No Hearing needs: No Vision needs: Yes Review of Systems Const Denies fatigue, Denies fever(s), Denies night sweats, Denies poor appetite and Denies weight loss ENT Reports Normal hearing present, Denies dental pain, Denies dysphagia, Reports vertigo, Reports dizziness, Denies hearing loss, Denies mouth pain, Denies odynophagia, Denies throat swelling, Denies tongue swelling and Reports other (Dentition adequate) Card Reports no additional complaints Resp Reports no additional complaints GI Details: Denies abdominal pain, Denies melena, Denies bloating, Denies hematochezia, Denies constipation, Denies GI cramping, Denies dysphagia, Denies excessive flatus, Denies early satiety, Reports heartburn, Denies diarrhea, Denies nausea, Denies odynophagia, Denies vomiting and Denies hematemesis Skin/Breast Denies pruritus, Denies lesions, Denies rash and Denies jaundice Neuro Reports Normal hearing present, Denies Abnormal speech present, Reports vertigo and Reports dizziness Endo Denies fatigue Aller/Immun Denies throat swelling and Denies tongue swelling Physical Exam Vital Signs: Last Vital Signs Pulse 69 12/16/23 15:23 BP 143/67 H 12/16/23 15:23 BMI result Body Mass Index 25.5 Const General: cooperative, no acute distress, well developed and well groomed Nutritional Appearance: average body habitus and well nourished Orientation/consciousness: oriented to person, oriented to place and oriented to time Limitations: No language barrier HEENT Head: Yes normocephalic and Yes atraumatic Eyes General: appearance normal, both eyes and all related structures Pupils: Equal, round and reactive pupils present Neck Neck: Yes normal visual inspection and Yes no lymphadenopathy Thyroid: Thyroid normal Resp Effort & Inspection: normal respiratory effort and able to speak in complete sentences Auscultation: clear to auscultation bilaterally Cardio Rate: regular rate Rhythm: regular rhythm Heart sounds: Normal, physiologic split S2 sound present Peripheral pulses: radial pulses present and posterior tibial pulses present GI Inspection: No distended and No Abdominal panniculus present Palpation (GI): Soft to palpation, nontender, no guarding, not rigid and No hepatosplenomegaly present Percussion: Yes normal to percussion Auscultation: normal bowel sounds Rectal Exam - Female: deferred Skin General skin exam: no rashes or lesions noted, turgor normal, skin not dry, no jaundice, No spider nevi and no striae Rashes: no rashes Nails: normal Neuro General: oriented to person, oriented to place and oriented to time Cranial nerves: Yes Equal, round and reactive pupils present and Yes Normal hearing present Speech: No Abnormal speech present Extrem General: Yes normal to inspection, No clubbing, No cyanosis and No edema Psych Appearance: grossly normal and well kempt Mental Status: mental status grossly normal Speech and movement: Normal speech and movement present Affect: normal affect Attitude: cooperative Thought process: Normal thought process present and not confabulating Thought content: Normal thought content present Insight: Fair insight present (Psych) Judgement: Fair judgement present (Psych) Assessment & Plan Assessment & Plan (1) Galloway's esophagus: Comment: 2020 EGD shows resolution of the Galloway's with no metaplasia Code(s): K22.70 - Galloway's esophagus without dysplasia Category: Medical (2) GERD (gastroesophageal reflux disease): Code(s): K21.9 - Gastro-esophageal reflux disease without esophagitis Category: Medical Qualifiers: Esophagitis presence: without esophagitis Qualified Code(s): K21.9 - Gastro-esophageal reflux disease without esophagitis (3) Dysphagia: Comment: ingrid dorman,, Hx of L side neck pain/ spasm. Hx of anterior osteophytes on barium swallow and cervical DDD. Code(s): R13.10 - Dysphagia, unspecified Category: Medical (4) Vertigo: Code(s): R42 - Dizziness and giddiness Category: Medical Plan She took the famotidine for 2 weeks but this did not help her nausea. she has dizziness preceding this every am, and since the medication did not work I suspect that the dizziness is causing the nausea and I suspect that she has intermittent vertigo. I do not think this is a primary GI process - especially since she has been told in the past that she has vertigo. She also has had sudden onset of sx in the middle of the day. She has used meclizine in the past, and I recommend that she try this. She laments that her omeprazole was decreased from bid to qd, but I believe this was r/t her osteoporosis and alendronate therapy. She pulled a muscle in her neck. This would prevent me suggesting PT for vertigo. She DOES admit that looking up to get something from a shelf and sudden changes of her head position set off her dizziness. Follow with PCP and return to gastro PRN since her last EGD showed resolution of SSBE. Medications: Refilled meclizine 25 mg PO TID PRN 90 tabs 3RF dizziness 30 days R42 - Dizziness and giddiness On Hold famotidine (Pepcid) Hold Comment: Doctor's Order 40 mg PO BEDTIME 30 tabs 12RF Coding Level of Care Code Est Pt Level 3 (02721) Diagnoses Galloway's esophagus K22.70 Gastroesophageal reflux disease without esophagitis K21.9 Esophagitis presence: without esophagitis Dysphagia R13.10 Vertigo R42
[2023-12-16 15:23] VITALS: BP 143/67; PULSE 69; BMI 25.5
== END 2023-12-16 15:50 | disposition home or self-care (01) ==
PROVIDERS: PCP Internal Medicine; Referring Provider Internal Medicine; Visit Provider Nurse Practitioner
DX: K22.70 Barrett's esophagus without dysplasia (principal); K21.9 Gastro-esophageal reflux disease without esophagitis; R13.10 Dysphagia, unspecified; R42 Dizziness and giddiness
CPT/HCPCS: 99213

== ENCOUNTER → 2023-12-16 15:20 | Outpatient (BNVA) | payer MEDICARE, SELFPAY | PROVIDERS: PCP Internal Medicine; Visit Provider Nurse Practitioner | DX: K22.70 Barrett's esophagus without dysplasia (principal); K21.9 Gastro-esophageal reflux disease without esophagitis; R13.10 Dysphagia, unspecified; R42 Dizziness and giddiness | CPT/HCPCS: 99212 ==

== ENCOUNTER 2024-01-14 09:55 | Outpatient (AMB) | payer MEDICARE, SELFPAY ==
--- NOTE | 2024-01-14 09:56 | A.OFFVIS_ITS ---
Vital Signs 01/14/24 09:57 Height 5 ft 3 in Weight 144 lb 6.444 oz BMI 25.6 BP 144/66 H Blood Pressure Location Lt brachial Position Sitting Pulse 64 Pulse Source Pulse Oximeter Intake Visit Reasons: f/u osteoporosis-confirmed Intake Note: Patient presents today for Osteoporosis follow up. Customer Experience Consultant Required: No Accompanied by: Self / Same As Patient Allergies No Known Allergies Allergy (Verified 01/14/24 10:01) Medication List - Last Reconciled 01/14/24 by Santos Bello MD alendronate 70 mg PO QWEEK ascorbic acid (vitamin C) 500 mg PO .QD atorvastatin 40 mg PO BEDTIME 90 days cholecalciferol (vitamin D3) 25 mcg PO DAILY famotidine (Pepcid) 40 mg PO BEDTIME lisinopril 2.5 mg PO DAILY magnesium carbonate 250 mg PO .QD meclizine 25 mg PO TID PRN 30 days metoprolol succinate ER 25 mg PO BID 90 days multivitamin 1 tab PO DAILY naproxen 500 mg PO BID omeprazole 20 mg PO DAILY 90 days HPI Comments Details: 73 YO Female with PMHx patellar fx is seen in consultation at the request of PCP for Osteoporosis. First diagnosed in 2 yrs ago . Received treatment in the past with Fosamax but didn't take it , n. No history of pathologic fracture or ONJ. Fxed patellar and elbow with hard fall. Fxed L4 compression fx sonya gup storage unit Has several servings of dietary calcium per day in the form of cheese and yogurt . Takes Calcium supplement ? mg daily in divided doses. Takes ? IU of Vitamin D daily. Denies ever using PPI, anticoagulant, antiepileptic or glucocorticoid medication. Does some weight bearing exercise once a mo . Fracture history: as above Height loss: [facility] NURSE history: Hysterectomy 1978 Denies history of Kidney stones: Denies family history of Osteoporosis or hip fracture. UTD on dental cleanings and sees dentist every 6 months. No planned upcoming dental work or extractions. DXA dated 12/17/2021:[facility] Secondary workup was negative Here today to discuss alternatives to oral bisphosphonate [address] [place] [address] Dr. Queen, [place] [address] Mammography Report Signed Patient: Melanie Quiros Date of Service: 12/17/21 Follow Up: Procedure(s): XR DEXA axial skeleton Accession Number(s): [id number] cc: Tristian Galvan MD~ EXAMINATION: BONE DENSITOMETRY CLINICAL INDICATION: Asymptomatic. COMPARISON: Previous BD dated 01/06/2019 and baseline BD dated 07/27/2007. TECHNIQUE: Using a [employer] DXA System (software version: 13.1) manufactured by [employer], dual-energy x-ray absorptiometry was performed of the lumbar spine and left hip. The images are of good technical quality. Summary results are attached. FINDINGS: AP SPINE L1-L4:? Current: BMD 0.944 g/cm2, Z-score -0.4, T-score -2.0, osteopenia, 5.3% decrease from previous, 5.4% decrease from baseline (<5% change is not significant). Prior: BMD 0.933 g/cm2. Baseline: BMD 0.937 g/cm2. LEFT FEMUR, NECK: Current: BMD 0.678 g/cm2, Z-score -0.9, T-score -2.6, osteoporosis. Prior: BMD 0.713 g/cm2. Baseline: BMD 0.735 g/cm2. LEFT FEMUR, TOTAL: Current: BMD 0.733 g/cm2, Z-score -0.7, T-score -2.2, osteopenia, 1.9% decrease from previous, 4.1% decrease from baseline (<5% change is not significant). Prior: BMD 0.747 g/cm2. Baseline: BMD 0.764 g/cm2. IDENTIFIED RISK FACTORS: Recurrent falls, height loss, history of fracture (adult). Early menopause, secondary osteoporosis, hysterectomy, right oophorectomy. HISTORY OF FRACTURE: L5 vertebral body, elbow, wrist, patella. MEDICATIONS: Calcium supplements or multivitamin, vitamin D. MM/XR DEXA axial skeleton IMPRESSION: 1. DIAGNOSIS: Osteoporosis based on the lowest T-score Labs: Currently on alendronate 70 mg Q weekly [facility] Medical History Patellar fracture Osteopenia Galloway's esophagus Overweight (BMI 25.0-29.9) Pure hypercholesterolemia Benign essential hypertension GERD (gastroesophageal reflux disease) Surgical History History of cataract extraction Hx of tonsillectomy Hx of hysterectomy Hx of hemorrhoidectomy History of bladder suspension procedure History of esophagogastroduodenoscopy (EGD) Hx of colonoscopy Family History Mother Angina pectoris Hearing loss Father Colon cancer, Onset Age: 91 Hearing loss Colon polyp Sister Brain tumor Paternal Grandfather Lung cancer Maternal Grandfather Myocardial infarction Maternal Grandmother Scarlet fever Other Substance abuse Social History Household Members: None Housing: Other 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 Are you a primary career guidance technician to a significant other at home: No Do you presently have visiting nurse or other home services: No Alcohol intake: former Patient Tobacco Use Status: Former Tobacco user Quit Date: 1990 e-Cigarette/Vaping Use: Never Used Second Hand Smoke Exposure: Yes service: No Current occupational status: retired Cognitive needs: No Hearing needs: No Vision needs: Yes Assessment & Plan Assessment & Plan (1) Osteoporosis: Code(s): M81.0 - Age-related osteoporosis without current pathological fracture Category: Medical Qualifiers: Osteoporosis type: age-related Presence of current pathological fracture: without current pathological fracture Qualified Code(s): M81.0 - Age- related osteoporosis without current pathological fracture Plan: This 71-year-old white female with a history of osteoporosis and several falls and fractures. Secondary workup was negative. Currently on alendronate 70 mg weekly Will repeat DEXA bone density as well as check urine NTX. Based on above may continue the bisphosphonate or give a drug holiday perhaps in 6 months Orders: Orders XR DEXA axial skeleton Today M81.0 - Age-related osteoporosis without current pathological fracture Coding Level of Care Code Est Pt Level 3 (02123) Diagnoses Age-related osteoporosis without current pathological fracture M81.0 Osteoporosis type: age-related Presence of current pathological fracture: without current pathological fracture
[2024-01-14 09:57] VITALS: BP 144/66; PULSE 64; BMI 25.6
== END 2024-01-14 10:27 | disposition home or self-care (01) ==
PROVIDERS: PCP Internal Medicine; Visit Provider Internal Medicine Endocrinology, Diabetes & Metabolism
DX: M81.0 Age-related osteoporosis without current pathological fracture (principal)
CPT/HCPCS: 99213

== ENCOUNTER → 2024-01-14 09:55 | Outpatient (BNVA) | payer MEDICARE, SELFPAY | PROVIDERS: PCP Internal Medicine; Visit Provider Internal Medicine Endocrinology, Diabetes & Metabolism | DX: M81.0 Age-related osteoporosis without current pathological fracture (principal) | CPT/HCPCS: 99212 ==

== ENCOUNTER 2024-01-20 08:27 | Outpatient (REF) | payer MEDICARE, SELFPAY ==
[2024-01-20 08:41] LABS: MANUAL DIFF FLAG NO
[2024-01-20 09:39] LABS: Basophils Absolute Auto 0.1 X10*3/uL (0.0-0.2); Basophils Percent Auto 1.3 % (0-2); Eosinophils Absolute Auto 0.2 X10*3/uL (0.0-0.4); Eosinophils Percent Auto 3.6 % (0-4); Hematocrit 40.3 % (37.0-47.0); Hemoglobin 13.4 g/dl (12.0-16.0); Imm Gran Abs Auto 0.01 X10*3/uL (0.00-0.03); Imm Gran Pct Auto 0.2 % (0.0-0.4); Lymphocytes Absolute Auto 1.5 X10*3/uL (1.2-4.9); Lymphocytes Percent Auto 31.8 % (20-40); Mean Corpuscular HGB Conc 33.3 g/dl (31.0-35.0); Mean Corpuscular Hemoglobin 32.1 pg (27.0-33.0); Mean Corpuscular Volume 96.4 fL (80.0-98.0); Mean Platelet Volume 10.3 fL (9.4-12.3); Monocytes Absolute Auto 0.5 X10*3/uL (0.1-1.2); Monocytes Percent Auto 9.9 % (2-11); Neutrophils Absolute Auto 2.5 x10*3/uL (2.0-8.3); Neutrophils Percent Auto 53.2 % (45-73); Platelet Count 222 X10*3/uL (160-400); Red Blood Count 4.18 X10*6/uL (4.20-5.50); Red Cell Distribution Width 12.3 % (11.0-16.0); White Blood Count 4.7 X10*3/uL (4.8-10.8)
[2024-01-20 09:46] LABS: Appearance Urine Clear; Color Urine Yellow; Glucose Urine UA Negative (Negative); Leukocyte Esterase Urine Trace (Negative); Nitrite Urine Negative (Negative); PH 6.5 (5.0-9.0); Specific Gravity - Urine 1.015 (1.005-1.025); UMIC TRIGGER UACC YES; Urine Blood Negative (Negative); Urine Ketones Negative (Negative); Urine Protein Negative (Neg-Trace)
[2024-01-20 09:51] LABS: Bacteria Urine None Seen (None Seen); Hyaline Casts Urine 0-2 /LPF (0-2); RBC Urine 0-2 /HPF (0-2); Squamous Epithelial Cell Urine 0-2 /HPF (0-2); WBC Urine 0-5 /HPF (0-5)
[2024-01-20 10:17] LABS: Alanine Aminotransferase 21 U/L (0-31); Albumin Level 4.2 g/dL (3.5-5.0); Alkaline Phosphatase 55 U/L (39-117); Anion Gap 13 (12-20); Aspartate Amino Transferase 23 U/L (5-31); Bilirubin Total 0.7 mg/dL (0.0-1.0); Blood Urea Nitrogen 9 mg/dL (9-16); Calcium 9.5 mg/dL (8.4-10.2); Carbon Dioxide 24 mmol/L (22-29); Chloride 111 mmol/L (96-108); Cholesterol 160 mg/dL (<200); Estimated Glomerular Filt Rate > 60; Glucose Fasting 86 mg/dL (60-99); HDL Cholesterol 58 mg/dL (>40); LDL Cholesterol Calculated 89 mg/dL (<100); Sodium 144 mmol/L (135-145); Total Protein 6.6 g/dL (6.5-8.0); Triglycerides 69 mg/dL (<150)
[2024-01-20 10:36] LABS: TSH reflex Free T4 2.53 uIU/mL (0.32-4.0); Vitamin D 25-OH Total 46.7 ng/mL (>30)
== END 2024-01-20 08:28 | disposition home or self-care (01) ==
LOC: HO.LAB 08:27
PROVIDERS: PCP Internal Medicine; Visit Provider Internal Medicine
DX: E78.00 Pure hypercholesterolemia, unspecified (principal); D64.9 Anemia, unspecified; E55.9 Vitamin D deficiency, unspecified; R30.0 Dysuria
CPT/HCPCS: 36415; 80053; 80061; 81001; 82306; 84443; 85025

== ENCOUNTER 2024-01-25 14:06 | Outpatient (AMB) | payer MEDICARE, SELFPAY ==
--- NOTE | 2024-01-25 14:12 | A.OFFPC_ITS ---
Vital Signs 01/25/24 14:15 Height 5 ft 3 in Weight 142 lb 6 oz BMI 25.2 BP 130/60 Blood Pressure Location Lt brachial Position Sitting Pulse 68 Pulse Source Pulse Oximeter Pulse Oximetry (%) 97 Oxygen Delivery Method Room Air Intake Visit Reasons: HTN, hyperlipidemia, gastritis Intake Note: Patient is here to follow up on HTN, HLD, Gastritis. Blood Tester Required: No Manufacturer'S Service Representative: Not Required per policy Accompanied by: Self / Same As Patient Allergies No Known Allergies Allergy (Verified 01/25/24 14:45) Medication List - Last Reconciled 01/25/24 by Tristian Galvan MD alendronate 70 mg PO QWEEK ascorbic acid (vitamin C) 500 mg PO .QD atorvastatin 40 mg PO BEDTIME 90 days cholecalciferol (vitamin D3) 25 mcg PO DAILY famotidine (Pepcid) 40 mg PO BEDTIME lisinopril 2.5 mg PO DAILY magnesium carbonate 250 mg PO .QD meclizine 25 mg PO TID PRN 30 days metoprolol succinate ER 25 mg PO BID 90 days multivitamin 1 tab PO DAILY omeprazole 20 mg PO DAILY 90 days Tobacco use date assessed: 01/25/24 Fall risk assessment: No Falls in past year Last assessed Fall Risk: 01/25/24 Dental Screening Dental Screen Date: 09/25/23 HPI HTN, hyperlipidemia, gastritis HPI Details Patient comes in today for her follow up visit States that she feels okay She denies any headaches or dizziness Denies any chest pains, no SOB No nausea/vomiting, no abdominal pain No change in bowel habits noted Had her follow up labs done a few days ago - to discuss her results [facility] Medical History Patellar fracture Osteopenia Galloway's esophagus Overweight (BMI 25.0-29.9) Pure hypercholesterolemia Benign essential hypertension GERD (gastroesophageal reflux disease) Surgical History History of cataract extraction Hx of tonsillectomy Hx of hysterectomy Hx of hemorrhoidectomy History of bladder suspension procedure History of esophagogastroduodenoscopy (EGD) Hx of colonoscopy Family History Mother Angina pectoris Hearing loss Father Colon cancer, Onset Age: 91 Hearing loss Colon polyp Sister Brain tumor Paternal Grandfather Lung cancer Maternal Grandfather Myocardial infarction Maternal Grandmother Scarlet fever Other Substance abuse Social History Household Members: None Housing: Other 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 Are you a primary resident care aide to a significant other at home: No Do you presently have visiting nurse or other home services: No Alcohol intake: former Patient Tobacco Use Status: Former Tobacco user e-Cigarette/Vaping Use: Never Used Second Hand Smoke Exposure: Yes service: No Current occupational status: retired Cognitive needs: No Hearing needs: No Vision needs: Yes (Glasses) Questionnaire Thrive Questionnaire Date Thrive assessed: 09/25/23 GAIL-7 AMB Questionnaire GAIL-7 Date GAIL - 7 assessed: 09/25/23 Source: Developed by Drs. Santos Prieto, Mamie Jason, Thomas Jacobson and colleagues, with an educational florian from [employer]. Review of Systems Const Denies fatigue, Denies fever(s) and Denies headache(s) ENT Denies dysphagia, Denies dizziness, Denies otalgia, Denies headache(s), Reports hearing loss (in right ear), Denies neck pain, Denies odynophagia, Reports tinnitus (more prominent in the right ear) and Denies sore throat Card Denies chest pain and Denies dyspnea Resp Denies chest congestion, Denies cough and Denies dyspnea GI Denies abdominal pain, Denies constipation, Denies dysphagia, Denies diarrhea, Denies nausea, Denies odynophagia and Denies vomiting Denies nocturia, Denies dysuria and Denies urinary urgency Musc Reports back pain (over the lower back (on and off)), Denies arthralgias and Denies neck pain Skin/Breast Denies rash Neuro Denies dizziness and Denies headache(s) Endo Denies fatigue Physical exam (Primary Care) Vital Signs: Last Vital Signs Pulse 68 01/25/24 14:15 BP 130/60 01/25/24 14:15 Pulse Ox 97 01/25/24 14:15 Oxygen Delivery Method Room Air 01/25/24 14:15 BMI result Body Mass Index 25.2 Tobacco/Smoking Status: Tobacco use Status Tobacco use date assessed 01/25/24 01/25/24 14:19 Patient Tobacco Use Status Former Tobacco user 01/25/24 14:19 e-Cigarette/Vaping Use Never Used 01/25/24 14:19 Thrive Assessment: Date of Thrive Assessment Date Thrive assessed 09/25/23 01/25/24 14:19 Const General: no acute distress and alert HENMT Ears: TM's normal bilaterally and EAC's normal Throat: Yes posterior oropharynx normal and Yes tonsils normal (no TP congestion noted) Neck Neck: Yes no lymphadenopathy and Yes supple Thyroid: Thyroid normal Resp Auscultation: clear to auscultation bilaterally, no rales and no wheezes Cardio Rate: regular rate Rhythm: regular rhythm Heart sounds: no murmurs GI Palpation (GI): Soft to palpation and nontender Auscultation: normal bowel sounds General: Yes no CVA tenderness Back/Spine/Pelvis Back: no CVA tenderness Thoracic/Lumbar Spine: lumbar spinal tenderness Skin Rashes: no rashes Extrem General: Yes no clubbing, cyanosis or edema Left lower extremity: knee Details: no tenderness Results Reviewed Results Reviewed: Laboratory Tests 01/20/24 01/20/24 08:33 08:40 WBC 4.7 L Hgb 13.4 Hct 40.3 Plt Count 222 Sodium 144 Potassium 4.0 Creatinine 0.71 Estimated GFR > 60 Fasting Glucose 86 Calcium 9.5 AST 23 ALT 21 Triglycerides 69 Cholesterol 160 LDL Cholesterol, Calc 89 HDL Cholesterol 58 25-OH Vitamin D Total 46.7 TSH 2.53 Ur Specific [place] 1.015 Urine Protein Negative Urine Glucose (UA) Negative Urine Blood Negative Urine Nitrite Negative Ur Leukocyte Esterase Trace H Assessment and Plan Assessment & Plan (1) Pure hypercholesterolemia: Code(s): E78.00 - Pure hypercholesterolemia, unspecified Plan: Results of her labs done a few days ago reviewed and discussed with patient - lipids have increased slightly from previous Reinforced low cholesterol diet Continue Atorvastatin 40 mg QD Will recheck her labs and fasting lipids in 4 months for follow up (2) Benign essential hypertension: Code(s): I10 - Essential (primary) hypertension Plan: Reinforced low sodium diet - goal is systolic BP of at least 140 mm or less Continue Metoprolol ER 25 mg BID and Lisinopril 2.5 mg QD Patient is reminded to continue monitoring her blood pressure regularly (3) GERD (gastroesophageal reflux disease): Code(s): K21.9 - Gastro-esophageal reflux disease without esophagitis Qualifiers: Esophagitis presence: without esophagitis Qualified Code(s): K21.9 - Gastro-esophageal reflux disease without esophagitis Plan: Dietary restrictions reinforced Continue Omeprazole 20 mg QD; she was started additionally on Famotidine 40 mh Q HS PRN by November [place] EGD done in 2015 revealed findings of mild chronic gastritis; H. pylori was negative Follow up with GI as scheduled (4) Osteoporosis: Code(s): M81.0 - Age-related osteoporosis without current pathological fracture Qualifiers: Osteoporosis type: age-related Presence of current pathological fr acture: without current pathological fracture Qualified Code(s): M81.0 - Age- related osteoporosis without current pathological fracture Plan: Repeat BMD done in December 2018 revealed osteopenia with a lowest T-score of -2.3 in the femoral neck; repeat BMD done more recently on 12/17/21 revealed (+) osteoporosis but no significant change from previous Has been prescribed Fosamax by Dr. Hernandez in the past but she did not want to take the Rx and has been taking OTC Calcium and Vitamin D daily instead but she was started back on Alendronate (Fosamax) by Dr. Bello a few months ago She now follows up with endocrinology (Dr. Bello) for her osteoporosis She will be getting a repeat BMD soon for follow up (5) Tinnitus: Code(s): H93.19 - Tinnitus, unspecified ear Qualifiers: Laterality: bilateral Qualified Code(s): H93.13 - Tinnitus, bilateral Plan: Patient feels that this is more prominent in the right ear and lately has been bothering her more and keeping her up at night Have advised patient that her tinnitus is most likely due to hearing loss and unfortunately does not have any effective treatment options other than hearing augmentation Have instructed her before to try keeping some low volume of sound or music at her bedside (like a small clock radio) on at all times during the night and this should help mask out a lot of the ringing sensation in her ear and allow her to get some sleep States that she has been trying to get in to see Dr. Anderson but is having a hard time getting an appointment but she will keep trying (6) Overweight (BMI 25.0-29.9): Code(s): E66.3 - Overweight Plan: Reinforced diet/exercise as tolerated/lose weight Plan Follow up in 4 months Orders: Orders Complete Blood Count Auto Diff 4 Months D64.9 - Anemia, unspecified Comprehensive [place]. Panel Fast 4 Months E78.00 - Pure hypercholesterolemia, unspecified Vitamin D 25-OH Total 4 Months E55.9 - Vitamin D deficiency, unspecified Lipid Panel 4 Months E78.00 - Pure hypercholesterolemia, unspecified TSH reflex Free T4 4 Months E78.00 - Pure hypercholesterolemia, unspecified UA CC w/rflx Micro + Cult 4 Months R30.0 - Dysuria Coding Level of Care Code Est Pt Level 4 (56501) Diagnoses Pure hypercholesterolemia E78.00 Benign essential hypertension I10 Gastroesophageal reflux disease without esophagitis K21.9 Esophagitis presence: without esophagitis Age-related osteoporosis without current pathological fracture M81.0 Osteoporosis type: age-related Presence of current pathological fracture: without current pathological fracture Tinnitus of both ears H93.13 Laterality: bilateral Overweight (BMI 25.0-29.9) E66.3
[2024-01-25 14:15] VITALS: BP 130/60; PULSE 68; O2SAT 97; BMI 25.2
== END 2024-01-25 15:05 | disposition home or self-care (01) ==
PROVIDERS: PCP Internal Medicine; Visit Provider Internal Medicine
DX: E78.00 Pure hypercholesterolemia, unspecified (principal); I10 Essential (primary) hypertension; K21.9 Gastro-esophageal reflux disease without esophagitis; M81.0 Age-related osteoporosis without current pathological fracture; H93.13 Tinnitus, bilateral; E66.3 Overweight
CPT/HCPCS: 99214

== ENCOUNTER 2024-02-05 07:57 | Outpatient (AMB) | payer MEDICARE, SELFPAY ==
--- NOTE | 2024-02-05 08:05 | MHC.OFFVIS ---
Vital Signs 02/05/24 08:06 Height 5 ft 3 in Weight 142 lb BMI 25.2 BP 120/63 Blood Pressure Location Lt brachial Position Sitting Pulse 80 Intake Visit Reasons: Follow up constipation Intake Note: Patient follow up for Constipation. Patient cc: dizziness due vertigo, med is helping with GERD, abdominal with gurgling noises, no more problems with constipation and difficulty with swallowing solid and solid. 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 Hx of anterior osteophytes on barium swallow and cervical DDD. Code(s): R13.10 - Dysphagia, unspecified Category: Medical (4) Vertigo: Code(s): R42 - Dizziness and giddiness Category: Medical Plan She took the famotidine for 2 weeks but this did not help her nausea. she has dizziness preceding this every am, and since the medication did not work I suspect that the dizziness is causing the nausea and I suspect that she has intermittent vertigo. I do not think this is a primary GI process - especially since she has been told in the past that she has vertigo. She also has had sudden onset of sx in the middle of the day. She has used meclizine in the past, and I recommend that she try this. She laments that her omeprazole was decreased from bid to qd, but I believe this was r/t her osteoporosis and alendronate therapy. She pulled a muscle in her neck. This would prevent me suggesting PT for vertigo. She DOES admit that looking up to get something from a shelf and sudden changes of her head position set off her dizziness. Follow with PCP and return to gastro PRN since her last EGD showed resolution of SSBE. Medications: Refilled meclizine 25 mg PO TID PRN 90 tabs 3RF dizziness 30 days R42 - Dizziness and giddiness On Hold famotidine (Pepcid) Hold Comment: Doctor's Order 40 mg PO BEDTIME 30 tabs 12RF CORRESPONDENCE On 01/21/24 @ 15:50 Merino Wrote To Avelina Nick Prep H is totally fine. I suggest senna OTC if she likes pills or Smooth Move Tea for her constipation. On 01/21/24 @ 14:14 Avelina Nick Wrote To Please see message below and advise. On 01/21/24 @ 13:44 Lara Caban Wrote To (2) Patient called wanted to know if she could use preparation H to help with her bleeding hemorrhoids but is also constipated she wants a call back advising what to do please. TODAY'S VISIT SHE IS ON FAMOTIDINE, omeprazole, and magnesium therapy. She had an episode of constipation and she used smooth move tea and it seems to have resolved itself. She also used [id number] hemorrhoid preparation because that was bothering her. She has having a new problem of a globus sensation just above the sternal notch and difficulty swallowing with both liquids and solids at times. Sometimes she feels like she can not breathe. This sounds like a problem with the epiglottis which could be driven by postnasal drip or by nocturnal GERD. She does have trouble with sinusitis and an itchy throat. I think will give her back to omeprazole twice a day and put her on Bhavani and Flonase to see if we can resolve this. If this does not resolve then will consider a modified barium swallow and or an EGD since her last was in 2020 and at that time we did dilate the distal esophagus. She continues to have vertigo especially when she gets up in the morning this also could be trigger her nausea receptor since she is complaining of frequent nausea. She has only taking the meclizine as needed I encouraged her to take it more regularly for a week or 2 at a time to see if we can keep the symptoms away. rov 6 weeks [facility] Medical History Patellar fracture Osteopenia Galloway's esophagus Overweight (BMI 25.0-29.9) Pure hypercholesterolemia Benign essential hypertension GERD (gastroesophageal reflux disease) Surgical History History of cataract extraction Hx of tonsillectomy Hx of hysterectomy Hx of hemorrhoidectomy History of bladder suspension procedure History of esophagogastroduodenoscopy (EGD) Hx of colonoscopy Family History Mother Angina pectoris Hearing loss Father Colon cancer, Onset Age: 91 Hearing loss Colon polyp Sister Brain tumor Paternal Grandfather Lung cancer Maternal Grandfather Myocardial infarction Maternal Grandmother Scarlet fever Other Substance abuse Social History Household Members: None Housing: Other 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 Are you a primary child care nurse to a significant other at home: No Do you presently have visiting nurse or other home services: No Alcohol intake: former Patient Tobacco Use Status: Former Tobacco user e-Cigarette/Vaping Use: Never Used Second Hand Smoke Exposure: Yes service: No Current occupational status: retired Cognitive needs: No Hearing needs: No Vision needs: Yes (Glasses) Review of Systems Const Denies fatigue, Denies fever(s), Denies night sweats, Denies poor appetite and Denies weight loss ENT Details: Constant clearing of her throat Reports Normal hearing present, Denies dental pain, Reports dysphagia, Denies hearing loss, Denies mouth pain, Denies odynophagia, Reports post nasal drip, Denies throat swelling, Denies tongue swelling and Reports other (Dentition adequate) Card Reports no additional complaints Resp Reports no additional complaints GI Details: Dysphagia at the sternal notch of both liquids and solids Denies abdominal pain, Denies melena, Denies bloating, Denies hematochezia, Denies constipation, Denies GI cramping, Reports dysphagia, Denies excessive flatus, Denies early satiety, Reports heartburn, Denies diarrhea, Denies nausea, Denies odynophagia, Denies vomiting and Denies hematemesis Skin/Breast Denies pruritus, Denies lesions, Denies rash and Denies jaundice Neuro Reports Normal hearing present and Denies Abnormal speech present Endo Denies fatigue Aller/Immun Denies throat swelling and Denies tongue swelling Physical Exam Vital Signs: Last Vital Signs Pulse 80 02/05/24 08:06 BP 120/63 02/05/24 08:06 BMI result Body Mass Index 25.2 Const General: cooperative, no acute distress, well developed and well groomed Nutritional Appearance: average body habitus and well nourished Orientation/consciousness: oriented to person, oriented to place and oriented to time Limitations: No language barrier HEENT Head: Yes normocephalic and Yes atraumatic Eyes General: appearance normal, both eyes and all related structures Pupils: Equal, round and reactive pupils present Neck Neck: Yes normal visual inspection and Yes no lymphadenopathy Thyroid: Thyroid normal Resp Effort & Inspection: normal respiratory effort and able to speak in complete sentences Auscultation: clear to auscultation bilaterally Cardio Rate: regular rate Rhythm: regular rhythm Heart sounds: Normal, physiologic split S2 sound present Peripheral pulses: radial pulses present and posterior tibial pulses present GI Inspection: No distended and No Abdominal panniculus present Palpation (GI): Soft to palpation, nontender, no guarding, not rigid and No hepatosplenomegaly present Percussion: Yes normal to percussion Auscultation: normal bowel sounds Rectal Exam - Female: deferred Skin General skin exam: no rashes or lesions noted, turgor normal, skin not dry, no jaundice, No spider nevi and no striae Rashes: no rashes Nails: normal Neuro General: oriented to person, oriented to place and oriented to time Cranial nerves: Yes Equal, round and reactive pupils present and Yes Normal hearing present Speech: No Abnormal speech present Extrem General: Yes normal to inspection, No clubbing, No cyanosis and No edema Psych Appearance: grossly normal and well kempt Mental Status: mental status grossly normal Speech and movement: Normal speech and movement present Affect: normal affect Attitude: cooperative Thought process: Normal thought process present and not confabulating Thought content: Normal thought content present Insight: Fair insight present (Psych) Judgement: Fair judgement present (Psych) Assessment & Plan Assessment & Plan (1) GERD (gastroesophageal reflux disease): Code(s): K21.9 - Gastro-esophageal reflux disease without esophagitis Category: Medical Qualifiers: Esophagitis presence: without esophagitis Qualified Code(s): K21.9 - Gastro-esophageal reflux disease without esophagitis (2) Galloway's esophagus: Comment: 2020 EGD shows resolution of the Galloway's with no metaplasia Code(s): K22.70 - Galloway's esophagus without dysplasia Category: Medical (3) Dysphagia: Comment: ingrid dorman,, Hx of L side neck pain/ spasm. Hx of anterior osteophytes on barium swallow and cervical DDD. Code(s): R13.10 - Dysphagia, unspecified Category: Medical (4) Allergic rhinitis: Code(s): J30.9 - Allergic rhinitis, unspecified Category: Medical Plan SHE IS ON FAMOTIDINE, omeprazole, and magnesium therapy. She had an episode of constipation and she used smooth move tea and it seems to have resolved itself. She also used [id number] hemorrhoid preparation because that was bothering her. She has having a new problem of a globus sensation just above the sternal notch and difficulty swallowing with both liquids and solids at times. Sometimes she feels like she can not breathe. This sounds like a problem with the epiglottis which could be driven by postnasal drip or by nocturnal GERD. She does have trouble with sinusitis and an itchy throat. I think will give her back to omeprazole twice a day and put her on Bhavani and Flonase to see if we can resolve this. If this does not resolve then will consider a modified barium swallow and or an EGD since her last was in 2020 and at that time we did dilate the distal esophagus. She continues to have vertigo especially when she gets up in the morning this also could be trigger her nausea receptor since she is complaining of frequent nausea. She has only taking the meclizine as needed I encouraged her to take it more regularly for a week or 2 at a time to see if we can keep the symptoms away. rov 6 weeks Medications: New fluticasone propionate 50 mcg/actuation (Flonase Allergy Relief) administer into each nostril 1 spray intranasal DAILY 16 grams 3RF J30.9 - Allergic rhinitis, unspecified fexofenadine (Bhavani Allergy) 180 mg PO DAILY 30 tabs 3RF J30.9 - Allergic rhinitis, unspecified Changed From omeprazole 20 mg PO DAILY 90 days 90 caps 1RF To omeprazole 20 mg PO BID 180 caps 1RF 90 days Coding Level of Care Code Est Pt Level 3 (32097) Diagnoses Gastroesophageal reflux disease without esophagitis K21.9 Esophagitis presence: without esophagitis Galloway's esophagus K22.70 Dysphagia R13.10 Allergic rhinitis J30.9
[2024-02-05 08:06] VITALS: BP 120/63; PULSE 80; BMI 25.2
== END 2024-02-05 08:43 | disposition home or self-care (01) ==
PROVIDERS: PCP Internal Medicine; Visit Provider Nurse Practitioner
DX: K21.9 Gastro-esophageal reflux disease without esophagitis (principal); K22.70 Barrett's esophagus without dysplasia; R13.10 Dysphagia, unspecified; J30.9 Allergic rhinitis, unspecified
CPT/HCPCS: 99213

== ENCOUNTER → 2024-02-05 07:57 | Outpatient (BNVA) | payer MEDICARE, SELFPAY | PROVIDERS: PCP Internal Medicine; Visit Provider Nurse Practitioner | DX: K21.9 Gastro-esophageal reflux disease without esophagitis (principal); K22.70 Barrett's esophagus without dysplasia; J30.9 Allergic rhinitis, unspecified; R13.10 Dysphagia, unspecified | CPT/HCPCS: 99212 ==

== ENCOUNTER 2024-02-11 11:15 | Outpatient (REF) | payer MEDICARE, SELFPAY ==
--- NOTE | ~2024-02-11 | MM_ITS ---
EXAMINATION: BONE DENSITOMETRY CLINICAL INDICATION: Age-related osteoporosis without current pathological fracture. COMPARISON: Previous BD dated 12/17/2021 and baseline BD dated 07/27/2007. TECHNIQUE: Using a Sparkbrowser DXA System (software version: 13.1) manufactured by [employer], dual-energy x-ray absorptiometry was performed of the lumbar spine and left hip. The images are of good technical quality. Summary results are attached. FINDINGS: LEFT FEMUR, NECK: Current: BMD 0.681 g/cm2, Z-score -0.7, T-score -2.6, osteoporosis. Prior: BMD 0.678 g/cm2. Baseline: BMD 0.735 g/cm2. LEFT FEMUR, TOTAL: Current: BMD 0.718 g/cm2, Z-score -0.6, T-score -2.3, osteopenia, 2.0% decrease from previous, 6.0% decrease from baseline (<5% change is not significant). Prior: BMD 0.733 g/cm2. Baseline: BMD 0.764 g/cm2. AP SPINE L1-L4: Current: BMD 1.012 g/cm2, Z-score 0.4, T-score -1.4, osteopenia, 7.2% increase from previous, 1.4% increase from baseline (<5% change is not significant). Prior: BMD 0.944 g/cm2. Baseline: BMD 0.998 g/cm2. IDENTIFIED RISK FACTORS: Early menopause, secondary osteoporosis, hysterectomy, left oophorectomy, height loss, history of fracture (adult), recurrent falls, osteoporosis. HISTORY OF FRACTURE: Other. Spine, wrist. MEDICATIONS: Calcium supplements or multivitamin, vitamin D, bisphosphonates. MM/XR DEXA axial skeleton IMPRESSION: 1. DIAGNOSIS: Severe osteoporosis based on the lowest T-score value of -2.6 in the femoral neck and history of fractures applying World Health Organization criteria. 2. 10-YEAR FRACTURE RISK PREDICTION, FRAX: According to the guidelines, FRAX calculation should only be performed on patients in the osteopenia bone density category. Therefore, FRAX was not performed on this patient. 3. Treatment Recommendations: NOF guidelines recommend consideration for treatment in postmenopausal women and men age 50 and older presenting with the following: -A hip or vertebral (clinical or morphometric) fracture. -T-score less than or equal to -2.5 at the femoral neck or spine after appropriate evaluation to exclude secondary causes. -Low bone mass at the hip or spine and a 10-year fracture probability by FRAX of greater than or equal to 3% for hip fracture or greater than or equal to 20% for major osteoporotic fracture based on the [place] adapted WHO algorithm. 4. Other Recommendations: All treatment decisions require clinical judgment and consideration of individual patient factors, including patient preferences, comorbidities, previous drug use, risk factors not captured in the FRAX model (e.g. frailty, falls, vitamin D deficiency, increased bone turnover, interval significant decline in bone density) and possible under or overestimation of fracture risk by FRAX. Additional medical evaluation for secondary cause of low bone mineral density may be appropriate. FUTURE SCAN RECOMMENDATION: People with diagnosed cases of osteoporosis or at high risk for fracture should have regular bone mineral density tests. For patients eligible for Medicare, routine testing is allowed once every 2 years. The testing frequency can be increased to one year for patients who have rapidly progressing disease, those who are receiving or discontinuing medical therapy to restore bone mass, or have additional risk factors.
== END 2024-02-11 11:16 | disposition home or self-care (01) ==
LOC: HO.MAMMO 11:15
PROVIDERS: PCP Internal Medicine; Visit Provider Internal Medicine Endocrinology, Diabetes & Metabolism
DX: M81.0 Age-related osteoporosis without current pathological fracture (principal)
CPT/HCPCS: 77080

== ENCOUNTER 2024-02-22 09:10 | Emergency (ER) | payer MEDICARE, SELFPAY ==
--- NOTE | ~2024-02-22 | CT_ITS ---
EXAMINATION: CT HEAD WITHOUT CONTRAST CLINICAL INFORMATION: Dizziness COMPARISON: None available. TECHNIQUE: Contiguous axial imaging was performed from the skull base to vertex without intravenous administration of contrast. This CT examination was performed using dose optimization techniques as appropriate, variously including the following: *Automated exposure control *Adjustment of mA and/or kV according to patient size (this includes techniques or standardized protocols for targeted exams where dose is matched to indication/reason for exam; i.e. extremities or head) *Use of iterative reconstruction technique DLP: 584.98 mGy-cm FINDINGS: Ventricles, sulci and cisterns are prominent. There is no midline shift, no abnormal intra- or extra- axial fluid accumulation. Weber and white matter differentiation is normal. Bone window images show no evidence of skull fracture. CT/CT head/brain wo IV con IMPRESSION: 1. Minimal age related cerebral atrophy. 2. No intracranial hemorrhage or skull fracture is seen. 3. No evidence of space occupying lesion could be found. 4. The current plain CT scan of the brain shows no diagnostic evidence of acute cerebral infarction.
[2024-02-22 09:13] VITALS: BP 189/79; PULSE 85; RESP 18; TEMP 36.8; O2SAT 97; BMI 25.9
[2024-02-22 09:29] LABS: MANUAL DIFF FLAG NO
[2024-02-22 09:32] LABS: Basophils Absolute Auto 0.1 X10*3/uL (0.0-0.2); Basophils Percent Auto 0.7 % (0-2); Eosinophils Absolute Auto 0.1 X10*3/uL (0.0-0.4); Eosinophils Percent Auto 2.1 % (0-4); Hematocrit 40.5 % (37.0-47.0); Hemoglobin 13.7 g/dl (12.0-16.0); Imm Gran Abs Auto 0.01 X10*3/uL (0.00-0.03); Imm Gran Pct Auto 0.1 % (0.0-0.4); Lymphocytes Absolute Auto 1.6 X10*3/uL (1.2-4.9); Lymphocytes Percent Auto 23.5 % (20-40); Mean Corpuscular HGB Conc 33.8 g/dl (31.0-35.0); Mean Corpuscular Hemoglobin 32.2 pg (27.0-33.0); Mean Corpuscular Volume 95.1 fL (80.0-98.0); Mean Platelet Volume 10.1 fL (9.4-12.3); Monocytes Absolute Auto 0.5 X10*3/uL (0.1-1.2); Monocytes Percent Auto 7.3 % (2-11); Neutrophils Absolute Auto 4.4 x10*3/uL (2.0-8.3); Neutrophils Percent Auto 66.3 % (45-73); Platelet Count 226 X10*3/uL (160-400); Red Blood Count 4.26 X10*6/uL (4.20-5.50); Red Cell Distribution Width 12.1 % (11.0-16.0); White Blood Count 6.7 X10*3/uL (4.8-10.8)
[2024-02-22 09:45] LABS: Alanine Aminotransferase 19 U/L (0-31); Albumin Level 4.3 g/dL (3.5-5.0); Alkaline Phosphatase 62 U/L (39-117); Anion Gap 13 (12-20); Aspartate Amino Transferase 18 U/L (5-31); Bilirubin Total 0.5 mg/dL (0.0-1.0); Blood Urea Nitrogen 13 mg/dL (9-16); Calcium 9.7 mg/dL (8.4-10.2); Carbon Dioxide 24 mmol/L (22-29); Chloride 109 mmol/L (96-108); Creatinine Clr Calc Pharmacy 57.9; Estimated Glomerular Filt Rate > 60; Glucose Random 104 mg/dL (60-115); Potassium 4.1 mmol/L (3.3-5.1); Sodium 142 mmol/L (135-145)
--- NOTE | 2024-02-22 09:55 | ED_ITS ---
HPI - General Adult General Chief complaint: General Medical Stated complaint: HBP Time Seen by Provider: 02/22/24 09:45 Source: patient Limitations: no limitations History of Present Illness HPI narrative: This is 73 years old patient presented to the emergency department with a chief complaint of generalized weakness ,dizness,malaise ongoing for weeks. Denies any chest pain, denies any shortness of breath denies any fever vomiting. She has history of hypertension she takes metoprolol 25 mg daily Onset (ago): week(s) (1) Radiation: non-radiation Severity: mild Relieving factors: none Exacerbating factors: none Associated symptoms: denies other symptoms Related Data Home Medications ?Medication ?Instructions ?Recorded ?Confirmed cholecalciferol (vitamin D3) 25 25 mcg PO DAILY 10/16/22 01/25/24 mcg (1,000 unit) capsule multivitamin 1 tab PO DAILY 10/16/22 01/25/24 ascorbic acid (vitamin C) 500 mg 500 mg PO .QD 09/25/23 01/25/24 capsule magnesium carbonate 250 mg capsule 250 mg PO .QD 09/25/23 01/25/24 Previous Rx's ?Medication ?Instructions ?Recorded alendronate 70 mg tablet 70 mg PO QWEEK #5 tabs 04/23/23 famotidine 40 mg tablet (Pepcid) 40 mg PO BEDTIME #30 tabs 09/10/23 metoprolol succinate 25 mg 25 mg PO BID 90 days #180 tabs 10/30/23 tablet,extended release 24 hr meclizine 25 mg tablet 25 mg PO TID PRN dizziness 30 days 12/16/23 #90 tabs atorvastatin 40 mg tablet 40 mg PO BEDTIME 90 days #90 tabs 12/29/23 lisinopril 2.5 mg tablet 2.5 mg PO DAILY #90 tabs 01/25/24 fexofenadine 180 mg tablet 180 mg PO DAILY #30 tabs 02/05/24 (Bhavani Allergy) fluticasone propionate 50 1 spray intranasal DAILY #16 grams 02/05/24 mcg/actuation nasal spray,suspension (Flonase Allergy Relief) omeprazole 20 mg capsule,delayed 20 mg PO BID 90 days #180 caps 02/05/24 release Allergies Allergy/AdvReac Type Severity Reaction Status Date / Time No Known Allergies Allergy Verified 07/08/24 09:13 Review of Systems 2 Constitutional: Constitutional: Reports no additional constitutional complaints Cardiovascular: Cardiovascular: Reports no additional cardiovascular complaints Musculoskeletal: Musculoskeletal: Reports no additional musculoskeletal complaints [facility] Past Medical History [facility] Narrative: Hypertension Medical History Patellar fracture Osteopenia Galloway's esophagus Overweight (BMI 25.0-29.9) Pure hypercholesterolemia Benign essential hypertension GERD (gastroesophageal reflux disease) Surgical History History of cataract extraction Hx of tonsillectomy Hx of hysterectomy Hx of hemorrhoidectomy History of bladder suspension procedure History of esophagogastroduodenoscopy (EGD) Hx of colonoscopy Family History Family History Mother Angina pectoris Hearing loss Father Colon cancer, Onset Age: 91 Hearing loss Colon polyp Sister Brain tumor Paternal Grandfather Lung cancer Maternal Grandfather Myocardial infarction Maternal Grandmother Scarlet fever Other Substance abuse Social History Social History Household Members: None Housing: Other 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 Are you a primary hospice spiritual care coordinator to a significant other at home: No Do you presently have visiting nurse or other home services: No Alcohol intake: former Patient Tobacco Use Status: Former Tobacco user Smoked in Last 30 Days: No e-Cigarette/Vaping Use: Never Used Second Hand Smoke Exposure: Yes Use of substances other than those prescribed or required for medical reasons: No Advance Directives: No Advance Directives Information Provided: Yes Do you have a plan to hurt others: No Plan service: No Current occupational status: retired Cognitive needs: No Hearing needs: No Vision needs: Yes (Glasses) Physical Exam ED Vital Signs: Vital Signs - 24 hr 02/22/24 09:13 02/22/24 09:57 02/22/24 12:27 Temperature 98.3 F 98.3 F 98.4 F Pulse Rate 85 70 68 Respiratory Rate 18 14 18 Blood Pressure 189/79 H 162/86 H 170/75 H Pulse Oximetry 97 97 98 Oxygen Delivery Method Room Air Room Air Room Air BMI result Body Mass Index 25.9 Const General: cooperative Nutritional Appearance: well nourished HENMT Head: Yes normal to inspection General nose exam: Normal external nose present Face and sinus: Yes normal facial exam Mouth: Normal oral and palatal mucosa present Neck Neck: Yes normal visual inspection Thyroid: Thyroid normal Carotids: normal carotid upstroke Chest Chest palpation & inspection: normal inspection of the chest Resp Effort & Inspection: normal respiratory effort Auscultation: clear to auscultation bilaterally Cardio Jugular venous distension: no JVD Rate: regular rate Rhythm: regular rhythm GI Inspection: Yes normal to inspection Palpation (GI): Soft to palpation, not firm and nontender Percussion: Yes normal to percussion Skin General skin exam: no rashes or lesions noted Lesions: no lesions Rashes: no rashes Trauma: no lacerations or abrasions Wounds: no wounds Course Reevaluation(s) Reevaluation #1: Remained stable workup is essentially negative I think she can be discharged home Time: 11:40 Medical Decision Making Medical Decision Making [facility] Narrative: Patient presented with generalized weakness will obtain electrocardiogram labs and reassess Differential Diagnosis Differential Diagnoses: The differential diagnosis associated with the presentation includes Anemia/hyperglycemia/electrolytes abnormality Admission/Observation Consideration of admission/observation: Escalation of care including admission/observation considered Lab Data [facility] Lab Attestation statement: I reviewed the patient's lab results. 02/22/24 09:23 02/22/24 09:23 Labs: Lab Results 02/22/24 Range/Units 09:23 WBC 6.7 (4.8-10.8) X10*3/uL RBC 4.26 (4.20-5.50) X10*6/uL Hgb 13.7 (12.0-16.0) g/dl Hct 40.5 (37.0-47.0) % MCV 95.1 (80.0-98.0) fL MCH 32.2 (27.0-33.0) pg MCHC 33.8 (31.0-35.0) g/dl RDW 12.1 (11.0-16.0) % Plt Count 226 (160-400) X10*3/uL MPV 10.1 (9.4-12.3) fL Immature Gran % (Auto) 0.1 (0.0-0.4) % Neut % (Auto) 66.3 (45-73) % Lymph % (Auto) 23.5 (20-40) % [place] % (Auto) 7.3 (2-11) % Eos % (Auto) 2.1 (0-4) % Baso % (Auto) 0.7 (0-2) % Lymph # (Auto) 1.6 (1.2-4.9) X10*3/uL [place] # (Auto) 0.5 (0.1-1.2) X10*3/uL Eos # (Auto) 0.1 (0.0-0.4) X10*3/uL Baso # (Auto) 0.1 (0.0-0.2) X10*3/uL Abs Immat Gran (auto) 0.01 (0.00-0.03) X10*3/uL Absolute Neuts (auto) 4.4 (2.0-8.3) x10*3/uL Absolute Nucleated RBC 0.000 (0.0-0.012) X10*3/uL Nucleated RBC % (auto) 0.0 (0.0-0.2) /100WBC Sodium 142 (135-145) mmol/L Potassium 4.1 (3.3-5.1) mmol/L Chloride 109 H (96-108) mmol/L Carbon Dioxide 24 (22-29) mmol/L Anion Gap 13 (12-20) BUN 13 (9-16) mg/dL Creatinine 0.78 (0.5-1.4) mg/dL Estim Creat Clear Calc 57.9 Estimated GFR > 60 Random Glucose 104 (60-115) mg/dL Calcium 9.7 (8.4-10.2) mg/dL Total Bilirubin 0.5 (0.0-1.0) mg/dL AST 18 (5-31) U/L ALT 19 (0-31) U/L Alkaline Phosphatase 62 (39-117) U/L Total Protein 7.0 (6.5-8.0) g/dL Albumin 4.3 (3.5-5.0) g/dL Influenza Type A (PCR) NEGATIVE (Negative) Influenza Type B (PCR) NEGATIVE (Negative) RSV RNA Qual (PCR) NEGATIVE (Negative) SARS-CoV-2 RNA (RT-PCR) NEGATIVE (Negative) Independent Interpretation I performed an independent interpretation of an: EKG Interpretation: EKG was reviewed interpreted by me as normal sinus rhythm rate 75 no ischemia Radiology Impression Discussion of test interpretation with radiology: I have reviewed the radiologist's reading. Radiologist Impression: FINDINGS: Ventricles, sulci and cisterns are prominent. There is no midline shift, no abnormal intra- or extra- axial fluid accumulation. Weber and white matter differentiation is normal. Bone window images show no evidence of skull fracture. CT/CT head/brain wo IV con IMPRESSION: 1. Minimal age related cerebral atrophy. 2. No intracranial hemorrhage or skull fracture is seen. 3. No evidence of space occupying lesion could be found. 4. The current plain CT scan of the brain shows no diagnostic evidence of acute cerebral infarction. Dictated By: Himanshu Arenas Signed By: <Electronically signed by Himanshu Arenas in OV> 02/22/24 1122 DD/ 1057 TD/TT: Etl [employer] Developer: Discharge Plan Discharge Clinical Impression: Dizziness, Weakness Patient Disposition: Home, Self-Care Instructions: Dizziness (ED) Additional Instructions: Follow-up with your primary care physician return to the emergency room if you are worse any concern. Prescriptions: No Action metoprolol succinate 25 mg tablet extended release 24 hr 25 mg PO BID 90 Days Qty: 180 1RF atorvastatin 40 mg tablet 40 mg PO BEDTIME 90 Days Qty: 90 1RF lisinopril 2.5 mg tablet 2.5 mg PO DAILY Qty: 90 1RF alendronate 70 mg tablet 70 mg PO QWEEK Qty: 5 11RF multivitamin Tablet 1 tab PO DAILY cholecalciferol (vitamin D3) 25 mcg (1,000 unit) capsule 25 mcg PO DAILY ascorbic acid (vitamin C) 500 mg capsule 500 mg PO .QD magnesium carbonate 250 mg capsule 250 mg PO .QD fexofenadine [Bhavani Allergy] 180 mg tablet 180 mg PO DAILY Qty: 30 3RF fluticasone propionate [Flonase Allergy Relief] 50 mcg/actuation spray,suspension 1 spray intranasal DAILY Qty: 16 3RF Rx Instructions: administer into each nostril omeprazole 20 mg capsule,delayed release(DR/EC) 20 mg PO BID 90 Days Qty: 180 1RF famotidine [Pepcid] 40 mg tablet 40 mg PO BEDTIME Qty: 30 12RF Hold Instructions: Doctor's Order meclizine 25 mg tablet 25 mg PO TID PRN (Reason: dizziness) 30 Days Qty: 90 3RF Referrals: Tristian Galvan MD [Primary Care Provider] - 2 days Interventions: ED Discharge Assessment Last Done: 02/22/24 12:27 Discharge Date/Time: 02/22/24 12:30 Print Language: Belgian
[2024-02-22 09:57] VITALS: BP 162/86; PULSE 70; RESP 14; TEMP 36.8; O2SAT 97
--- NOTE | 2024-02-22 09:59 | ECG_ITS ---
Test Reason : HYPERTENSION Blood Pressure : / mmHG Vent. Rate : 075 BPM Atrial Rate : 075 BPM P-R Int : 150 ms QRS Dur : 108 ms QT Int : 414 ms P-R-T Axes : 052 -45 028 degrees QTc Int : 462 ms Normal sinus rhythm Left axis deviation Moderate voltage criteria for LVH, may be normal variant ( R in aVL , Andrade product ) Nonspecific T wave abnormality Abnormal ECG When compared with ECG of 15-APR-2012 06:50, T wave inversion no longer evident in Anterolateral leads Referred By: Abbe Hitchcock Electronically Signed By:Carlos Goff
[2024-02-22 10:11] LABS: Influenza A PCR NEGATIVE (Negative); Influenza B PCR NEGATIVE (Negative); Resp Syncy Virus RNA Qual PCR NEGATIVE (Negative); SARS COV2 PCR INHOUSE NEGATIVE (Negative)
--- NOTE | 2024-02-22 11:27 | PC.NURSE ---
Pt comes to ED today with complaints of general malaise. States she has not been feeling well for some time now and recently started to monitor her BP. She states yesterday she had a high reading and felt some dizziness. She reports to have noticed some redness to her face as well with her high BP reading and therefore came to get checked out. She claims her symptoms have been on going since her COVID vaccines when they first initially came out. Pt is A&Ox3 and pleasant. Slightly elevated BP but otherwise VSS. Skin is warm and dry. Speech is clear, concise and unlabored. NAD noted.
[2024-02-22 12:27] VITALS: BP 170/75; PULSE 68; RESP 18; TEMP 36.9; O2SAT 98
== END 2024-02-22 12:30 | disposition home or self-care (01) ==
PROVIDERS: Emergency Provider Emergency Medicine; PCP Internal Medicine
DX: R42 Dizziness and giddiness (principal); R53.1 Weakness; Z03.818 Encounter for observation for suspected exposure to other biological agents ruled out; Z79.899 Other long term (current) drug therapy
CPT/HCPCS: 0241U; 70450; 80053; 85025; 93005; 99284

== ENCOUNTER → 2024-02-22 09:59 | Outpatient (BNV) | payer MEDICARE, SELFPAY | PROVIDERS: Emergency Provider Emergency Medicine; PCP Internal Medicine; Visit Provider Internal Medicine Cardiovascular Disease | DX: I10 Essential (primary) hypertension (principal) | CPT/HCPCS: 93010 ==

== ENCOUNTER 2024-02-23 12:22 | Outpatient (AMB) | payer MEDICARE, SELFPAY ==
--- NOTE | 2024-02-23 12:26 | AM.OFFWIN_ITS ---
Intake Vital Signs 02/23/24 12:27 Height 5 ft 3 in Weight 145 lb BMI 25.7 BP 148/80 H Blood Pressure Location Rt brachial Position Sitting Pulse 68 Pulse Source Pulse Oximeter Temp 98.9 F Temp Source Oral Pulse Oximetry (%) 98 Oxygen Delivery Method Room Air Intake Visit Reasons: EP BP 155/85 Intake Note: pt here c/o elevated BP Patient Tobacco Use Status: Former Tobacco user Allergies lisinopril Adverse Reaction (Intermediate, Verified 02/23/24 12:33) Stomach Upset Do you need a note to return to daycare/school/sports/work: No HPI HPI Comments History of Present Illness Details Patient is a 73-year-old female with a diagnosis of hypertension currently taking 25 mg metoprolol ER complaining of elevated blood pressures. She states she went to the emergency department yesterday, they recorded blood pressures as high as 189/79. They did a thorough workup including labs, head CT and an EKG and everything was negative for acute issues so they discharged her home. She came in this morning and said her blood pressure at home was 155 systolic, are reading was 148/80, she denies any dizziness or headache or chest pain. She is unsure what to do with her medications. She states she takes her metoprolol twice a day but stopped taking her lisinopril because it made her feel sick . She states she does check her blood pressure randomly at home. [facility] Medical History Patellar fracture Osteopenia Galloway's esophagus Overweight (BMI 25.0-29.9) Pure hypercholesterolemia Benign essential hypertension GERD (gastroesophageal reflux disease) Surgical History History of cataract extraction Hx of tonsillectomy Hx of hysterectomy Hx of hemorrhoidectomy History of bladder suspension procedure History of esophagogastroduodenoscopy (EGD) Hx of colonoscopy Family History Mother Angina pectoris Hearing loss Father Colon cancer, Onset Age: 91 Hearing loss Colon polyp Sister Brain tumor Paternal Grandfather Lung cancer Maternal Grandfather Myocardial infarction Maternal Grandmother Scarlet fever Other Substance abuse Social History Household Members: None Housing: Other 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 Are you a primary career development manager to a significant other at home: No Do you presently have visiting nurse or other home services: No Alcohol intake: former Patient Tobacco Use Status: Former Tobacco user e-Cigarette/Vaping Use: Never Used Second Hand Smoke Exposure: Yes service: No Current occupational status: retired Cognitive needs: No Hearing needs: No Vision needs: Yes (Glasses) Review of Systems Const All systems reviewed & are unremarkable except as noted in HPI and below Physical Exam Vital Signs: Last Vital Signs Temp 98.9 F 02/23/24 12:27 Pulse 68 02/23/24 12:27 BP 148/80 H 02/23/24 12:27 Pulse Ox 98 02/23/24 12:27 Oxygen Delivery Method Room Air 02/23/24 12:27 BMI result Body Mass Index 25.7 Const General: cooperative, healthy appearing, comfortable, no acute distress and well developed Orientation/consciousness: patient oriented x3 Limitations: no limitations HEENT Head: Yes normal to inspection Eyes General: appearance normal, both eyes and all related structures Neck Neck: Yes normal visual inspection and Yes full ROM Resp Effort & Inspection: normal respiratory effort and able to speak in complete sentences Skin General skin exam: no rashes or lesions noted Neuro General: patient oriented x3 Extrem General: Yes normal to inspection Results Reviewed Results Reviewed: Reviewed notes from emergency department visit yesterday including vitals, labs, head CT and EKG Assessment & Plan Assessment & Plan (1) Elevated blood pressure reading in office with diagnosis of hypertension: Code(s): I10 - Essential (primary) hypertension Plan: As patient was not taking her 2.5 mg of lisinopril daily and clearly she needs to, recommended she start taking it daily, logging her blood pressures at least once a day and bring that log in to a follow-up appointment with her PCP next week, called her PCP's office to get her an appointment for follow-up in about a week's time. Did discuss if she does develop a cough, she should try taking the medication at night instead of in the morning. Also give her red flag warning signs and when to go to the emergency department. Plan See above Coding Level of Care Code Est Pt Level 4 (43352) Diagnoses Elevated blood pressure reading in office with diagnosis of hypertension I10
[2024-02-23 12:27] VITALS: BP 148/80; PULSE 68; TEMP 37.2; O2SAT 98; BMI 25.7
== END 2024-02-23 13:58 | disposition home or self-care (01) ==
PROVIDERS: PCP Internal Medicine; Visit Provider Physician Assistant
DX: I10 Essential (primary) hypertension (principal)
CPT/HCPCS: 99214

== ENCOUNTER 2024-03-02 11:02 | Outpatient (AMB) | payer MEDICARE, SELFPAY ==
[2024-03-02 11:08] VITALS: BP 168/74; PULSE 70; O2SAT 97; BMI 25.5
--- NOTE | 2024-03-02 11:08 | MHC.PC.OV ---
Vital Signs 03/02/24 11:08 Height 5 ft 3 in Weight 144 lb BMI 25.5 BP 168/74 H Blood Pressure Location Lt brachial Position Sitting Pulse 70 Pulse Source Pulse Oximeter Pulse Oximetry (%) 97 Oxygen Delivery Method Room Air Intake Visit Reasons: elevated BP's Doll Maker Required: No Allergies lisinopril Adverse Reaction (Intermediate, Verified 03/02/24 11:33) Stomach Upset Medication List - Last Reconciled 03/02/24 by Tristian Galvan MD alendronate 70 mg PO QWEEK ascorbic acid (vitamin C) 500 mg PO .QD atorvastatin 40 mg PO BEDTIME 90 days cholecalciferol (vitamin D3) 25 mcg PO DAILY lisinopril 2.5 mg PO DAILY 90 days magnesium carbonate 250 mg PO .QD meclizine 25 mg PO TID PRN 30 days metoprolol succinate ER 25 mg PO BID 90 days multivitamin 1 tab PO DAILY omeprazole 20 mg PO BID 90 days Tobacco use date assessed: 01/25/24 Dental Screening Dental Screen Date: 09/25/23 HPI elevated BP's HPI Details Patient comes in today for further evaluation of her blood pressure, which she states has been running high often over the past couple of weeks States that his systolic blood pressure has gone up as high as 189 mm and she is concerned that she may end up with a stroke She is currently still on Lisinopril 2.5 mg in AM and Metoprolol ER 25 mg BID for her blood pressure She denies any headaches or dizziness Denies any chest pains, no shortness of breath No nausea/ vomiting, no abdominal pain No change in bowel habits noted Adds that she forgot to take her Atorvastatin for about 3 weeks but is now back on her Rx [facility] Medical History Patellar fracture Osteopenia Galloway's esophagus Overweight (BMI 25.0-29.9) Pure hypercholesterolemia Benign essential hypertension GERD (gastroesophageal reflux disease) Surgical History History of cataract extraction Hx of tonsillectomy Hx of hysterectomy Hx of hemorrhoidectomy History of bladder suspension procedure History of esophagogastroduodenoscopy (EGD) Hx of colonoscopy Family History Mother Angina pectoris Hearing loss Father Colon cancer, Onset Age: 91 Hearing loss Colon polyp Sister Brain tumor Paternal Grandfather Lung cancer Maternal Grandfather Myocardial infarction Maternal Grandmother Scarlet fever Other Substance abuse Social History Household Members: None Housing: Other 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 Are you a primary director of career services to a significant other at home: No Do you presently have visiting nurse or other home services: No Alcohol intake: former Patient Tobacco Use Status: Former Tobacco user e-Cigarette/Vaping Use: Never Used Second Hand Smoke Exposure: Yes service: No Current occupational status: retired Cognitive needs: No Hearing needs: No Vision needs: Yes (Glasses) Questionnaire Thrive Questionnaire Date Thrive assessed: 09/25/23 AUDIT C Alcohol Use Questionnaire (AUDIT-C) 1. How often do you have a drink containing alcohol?: Never 3. How often do you have six or more drinks on one occasion?: Never Total Score: 0 Score Reviewed/Action Taken: Yes GAIL-7 AMB Questionnaire GAIL-7 Date GAIL - 7 assessed: 09/25/23 Source: Developed by Drs. Santos Prieto, Mamie Jason, Thomas Jacobson and colleagues, with an educational florian from [employer]. Review of Systems Const Denies chills, Denies fatigue, Denies fever(s) and Denies headache(s) ENT Denies dysphagia, Reports dizziness (on and off), Denies otalgia, Denies headache(s), Reports hearing loss (in right ear), Denies neck pain, Denies odynophagia, Reports tinnitus (more prominent in the right ear) and Denies sore throat Card Denies chest pain and Denies dyspnea Resp Denies chest congestion, Denies cough and Denies dyspnea GI Denies abdominal pain, Denies constipation, Denies dysphagia, Denies diarrhea, Denies nausea, Denies odynophagia and Denies vomiting Denies nocturia, Denies dysuria and Denies urinary urgency Musc Reports back pain (over the lower back (on and off)), Denies arthralgias and Denies neck pain Skin/Breast Denies rash Neuro Reports dizziness (on and off) and Denies headache(s) Psych Reports anxiety Endo Denies fatigue Physical exam (Primary Care) Vital Signs: Last Vital Signs Pulse 70 03/02/24 11:08 BP 168/74 H 03/02/24 11:08 Pulse Ox 97 03/02/24 11:08 Oxygen Delivery Method Room Air 03/02/24 11:08 BMI result Body Mass Index 25.5 Tobacco/Smoking Status: Tobacco use Status Tobacco use date assessed 01/25/24 03/02/24 11:13 Patient Tobacco Use Status Former Tobacco user 03/02/24 11:13 e-Cigarette/Vaping Use Never Used 03/02/24 11:13 Thrive Assessment: Date of Thrive Assessment Date Thrive assessed 09/25/23 03/02/24 11:13 Const General: no acute distress and alert HENMT Throat: Yes posterior oropharynx normal and Yes tonsils normal (no TP congestion noted) Neck Neck: Yes no lymphadenopathy and Yes supple Thyroid: Thyroid normal Resp Auscultation: clear to auscultation bilaterally, no rales and no wheezes Cardio Rate: regular rate Rhythm: regular rhythm Heart sounds: no murmurs GI Palpation (GI): Soft to palpation and nontender Auscultation: normal bowel sounds General: Yes no CVA tenderness Back/Spine/Pelvis Back: no CVA tenderness Thoracic/Lumbar Spine: lumbar spinal tenderness Skin Rashes: no rashes Extrem General: Yes no clubbing, cyanosis or edema Left lower extremity: knee Details: no tenderness Assessment and Plan Assessment & Plan (1) Benign essential hypertension: Code(s): I10 - Essential (primary) hypertension Plan: Reinforced low sodium diet - goal is systolic BP of at least 140 mm or less Continue Metoprolol ER 25 mg BID; will increase her Lisinopril from 2.5 mg to 5 mg QD Patient is reminded to continue monitoring her blood pressure regularly (2) Pure hypercholesterolemia: Code(s): E78.00 - Pure hypercholesterolemia, unspecified Plan: Reinforced low cholesterol diet Continue Atorvastatin 40 mg QD - she admitted to forgetting to take her Atorvastatin for about 3 weeks recently but is now back on her Rx (3) GERD (gastroesophageal reflux disease): Code(s): K21.9 - Gastro-esophageal reflux disease without esophagitis Qualifiers: Esophagitis presence: without esophagitis Qualified Code(s): K21.9 - Gastro-esophageal reflux disease without esophagitis Plan: Dietary restrictions reinforced Continue Omeprazole 20 mg QD; she was started additionally on Famotidine 40 mh Q HS PRN by November EGD done in 2015 revealed findings of mild chronic gastritis; H. pylori was negative Follow up with GI as scheduled (4) Overweight (BMI 25.0-29.9): Code(s): E66.3 - Overweight Plan: Reinforced diet/exercise as tolerated/lose weight Plan Follow up as scheduled in May 2024 Medications: Changed From lisinopril 2.5 mg PO DAILY 90 days 90 tabs 1RF To lisinopril 5 mg PO DAILY 90 tabs 1RF 90 days Coding Level of Care Code Est Pt Level 3 (31394) Diagnoses Benign essential hypertension I10 Pure hypercholesterolemia E78.00 Gastroesophageal reflux disease without esophagitis K21.9 Esophagitis presence: without esophagitis Overweight (BMI 25.0-29.9) E66.3
== END 2024-03-02 11:37 | disposition home or self-care (01) ==
PROVIDERS: PCP Internal Medicine; Visit Provider Internal Medicine
DX: I10 Essential (primary) hypertension (principal); E78.00 Pure hypercholesterolemia, unspecified; K21.9 Gastro-esophageal reflux disease without esophagitis; E66.3 Overweight
CPT/HCPCS: 99213

== ENCOUNTER 2024-03-18 13:03 | Outpatient (AMB) | payer MEDICARE, SELFPAY ==
--- NOTE | 2024-03-18 13:06 | A.OFFVIS_ITS ---
Vital Signs 03/18/24 13:24 Height 5 ft 3 in Weight 144 lb BMI 25.5 BP 96/57 L Blood Pressure Location Lt brachial Position Sitting Intake Visit Reasons: 6 weeks follow up Intake Note: Patient 6 weeks follow up Patient cc: Nauseas, denies any other GI issues. Parts Sales Representative Required: No Accompanied by: Self / Same As Patient Allergies lisinopril Adverse Reaction (Intermediate, Verified 03/18/24 13:21) Stomach Upset HPI HPI 6 weeks follow up: Details: Assessment & Plan (1) GERD (gastroesophageal reflux disease): Code(s): K21.9 - Gastro-esophageal reflux disease without esophagitis Category: Medical Qualifiers: Esophagitis presence: without esophagitis Qualified Code(s): K21.9 - Gastro-esophageal reflux disease without esophagitis (2) Galloway's esophagus: Comment: 2020 EGD shows resolution of the Galloway's with no metaplasia Code(s): K22.70 - Galloway's esophagus without dysplasia Category: Medical (3) Dysphagia: Comment: ingrid dorman,, Hx of L side neck pain/ spasm. Hx of anterior osteophytes on barium swallow and cervical DDD. Code(s): R13.10 - Dysphagia, unspecified Category: Medical (4) Allergic rhinitis: Code(s): J30.9 - Allergic rhinitis, unspecified Category: Medical Plan SHE IS ON FAMOTIDINE, omeprazole, and magnesium therapy. She had an episode of constipation and she used smooth move tea and it seems to have resolved itself. She also used [id number] hemorrhoid preparation because that was bothering her. She has having a new problem of a globus sensation just above the sternal notch and difficulty swallowing with both liquids and solids at times. Sometimes she feels like she can not breathe. This sounds like a problem with the epiglottis which could be driven by postnasal drip or by nocturnal GERD. She does have trouble with sinusitis and an itchy throat. I think will give her back to omeprazole twice a day and put her on Bhavani and Flonase to see if we can resolve this. If this does not resolve then will consider a modified barium swallow and or an EGD since her last was in 2020 and at that time we did dilate the distal esophagus. She continues to have vertigo especially when she gets up in the morning this also could be trigger her nausea receptor since she is complaining of frequent nausea. She has only taking the meclizine as needed I encouraged her to take it more regularly for a week or 2 at a time to see if we can keep the symptoms away. rov 6 weeks Medications: New fluticasone propionate 50 mcg/actuation (Flonase Allergy Relief) administer into each nostril 1 spray intranasal DAILY 16 grams 3RF J30.9 - Allergic rhinitis, unspecified fexofenadine (Bhavani Allergy) 180 mg PO DAILY 30 tabs 3RF J30.9 - Allergic rhinitis, unspecified Changed From omeprazole 20 mg PO DAILY 90 days 90 caps 1RF To omeprazole 20 mg PO BID 180 caps 1RF 90 days TODAY'S VISIT She was seen recently for HTN in the ER. She did not have sx, she just takes her BP at home. Her lisinopril was increased from 2.5mg to 5mg. Her nausea is somewhat better in the am and it gets better within 1/2 an hour of taking the meclizine. So, it is unclear if this or restarting the omeprazole is causing the improvement. I want her to go back to qam dosing of the omeprazole. She should continue the meclizine bid. The nausea could be r/t the vertigo. She has not had to use the flonase but once, the throat problem seems to have resolved. Again, unsure if this was r/t GERD or allergies. She can play with her meds to control her sx. ROV 3 mos. [facility] Medical History Patellar fracture Osteopenia Galloway's esophagus Overweight (BMI 25.0-29.9) Pure hypercholesterolemia Benign essential hypertension GERD (gastroesophageal reflux disease) Surgical History History of cataract extraction Hx of tonsillectomy Hx of hysterectomy Hx of hemorrhoidectomy History of bladder suspension procedure History of esophagogastroduodenoscopy (EGD) Hx of colonoscopy Family History Mother Angina pectoris Hearing loss Father Colon cancer, Onset Age: 91 Hearing loss Colon polyp Sister Brain tumor Paternal Grandfather Lung cancer Maternal Grandfather Myocardial infarction Maternal Grandmother Scarlet fever Other Substance abuse Social History Household Members: None Housing: Other 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 Are you a primary rn intensive care unit to a significant other at home: No Do you presently have visiting nurse or other home services: No Alcohol intake: former Patient Tobacco Use Status: Former Tobacco user e-Cigarette/Vaping Use: Never Used Second Hand Smoke Exposure: Yes service: No Current occupational status: retired Cognitive needs: No Hearing needs: No Vision needs: Yes (Glasses) Review of Systems Const Denies fatigue, Denies fever(s), Denies night sweats, Denies poor appetite and Denies weight loss ENT Reports Normal hearing present, Denies dental pain, Reports dysphagia, Reports vertigo, Denies hearing loss, Denies mouth pain, Denies odynophagia, Denies throat swelling, Denies tongue swelling and Reports other (Dentition adequate) Card Reports no additional complaints Resp Reports no additional complaints GI Details: Denies abdominal pain, Denies melena, Denies bloating, Denies hematochezia, Denies constipation, Denies GI cramping, Reports dysphagia, Denies excessive flatus, Denies early satiety, Reports heartburn, Denies diarrhea, Reports nausea, Denies odynophagia, Denies vomiting and Denies hematemesis Skin/Breast Denies pruritus, Denies lesions, Denies rash and Denies jaundice Neuro Reports Normal hearing present, Denies Abnormal speech present and Reports vertigo Endo Denies fatigue Aller/Immun Denies throat swelling and Denies tongue swelling Physical Exam Vital Signs: Last Vital Signs BP 96/57 L 03/18/24 13:24 BMI result Body Mass Index 25.5 Const General: cooperative, no acute distress, well developed and well groomed Nutritional Appearance: average body habitus and well nourished Orientation/consciousness: oriented to person, oriented to place and oriented to time Limitations: No language barrier HEENT Head: Yes normocephalic and Yes atraumatic Eyes General: appearance normal, both eyes and all related structures Pupils: Equal, round and reactive pupils present Neck Neck: Yes normal visual inspection and Yes no lymphadenopathy Thyroid: Thyroid normal Resp Effort & Inspection: normal respiratory effort and able to speak in complete sentences Auscultation: clear to auscultation bilaterally Cardio Rate: regular rate Rhythm: regular rhythm Heart sounds: Normal, physiologic split S2 sound present Peripheral pulses: radial pulses present and posterior tibial pulses present GI Inspection: No distended and No Abdominal panniculus present Palpation (GI): Soft to palpation, nontender, no guarding, not rigid and No hepatosplenomegaly present Percussion: Yes normal to percussion Auscultation: normal bowel sounds Rectal Exam - Female: deferred Skin General skin exam: no rashes or lesions noted, turgor normal, skin not dry, no jaundice, No spider nevi and no striae Rashes: no rashes Nails: normal Neuro General: oriented to person, oriented to place and oriented to time Cranial nerves: Yes Equal, round and reactive pupils present and Yes Normal hearing present Speech: No Abnormal speech present Extrem General: Yes normal to inspection, No clubbing, No cyanosis and No edema Psych Appearance: grossly normal and well kempt Mental Status: mental status grossly normal Speech and movement: Normal speech and movement present Affect: normal affect Attitude: cooperative Thought process: Normal thought process present and not confabulating Thought content: Normal thought content present Insight: Limited insight present (Psych) Judgement: Limited judgement present (Psych) Assessment & Plan Assessment & Plan (1) GERD (gastroesophageal reflux disease): Code(s): K21.9 - Gastro-esophageal reflux disease without esophagitis Category: Medical Qualifiers: Esophagitis presence: without esophagitis Qualified Code(s): K21.9 - Gastro-esophageal reflux disease without esophagitis (2) Dysphagia: Comment: ingrid dorman,, Hx of L side neck pain/ spasm. Hx of anterior osteophytes on barium swallow and cervical DDD. Code(s): R13.10 - Dysphagia, unspecified Category: Medical (3) Galloway's esophagus: Comment: 2020 EGD shows resolution of the Galloway's with no metaplasia Code(s): K22.70 - Galloway's esophagus without dysplasia Category: Medical Plan She was seen recently for HTN in the ER. She did not have sx, she just takes her BP at home. Her lisinopril was increased from 2.5mg to 5mg. Her nausea is somewhat better in the am and it gets better within 1/2 an hour of taking the meclizine. So, it is unclear if this or restarting the omeprazole is causing the improvement. I want her to go back to qam dosing of the omeprazole. She should continue the meclizine bid. The nausea could be r/t the vertigo. She has not had to use the flonase but once, the throat problem seems to have resolved. Again, unsure if this was r/t GERD or allergies. She can play with her meds to control her sx. ROV 3 mos. Coding Level of Care Code Est Pt Level 3 (43745) Diagnoses Gastroesophageal reflux disease without esophagitis K21.9 Esophagitis presence: without esophagitis Dysphagia R13.10 Galloway's esophagus K22.70
[2024-03-18 13:24] VITALS: BP 96/57; BMI 25.5
== END 2024-03-18 13:48 | disposition home or self-care (01) ==
PROVIDERS: PCP Internal Medicine; Visit Provider Nurse Practitioner
DX: K21.9 Gastro-esophageal reflux disease without esophagitis (principal); R13.10 Dysphagia, unspecified; K22.70 Barrett's esophagus without dysplasia
CPT/HCPCS: 99213

== ENCOUNTER → 2024-03-18 13:03 | Outpatient (BNVA) | payer MEDICARE, SELFPAY | PROVIDERS: PCP Internal Medicine; Visit Provider Nurse Practitioner | DX: K21.9 Gastro-esophageal reflux disease without esophagitis (principal); K22.70 Barrett's esophagus without dysplasia; R13.10 Dysphagia, unspecified | CPT/HCPCS: 99212 ==

== ENCOUNTER 2024-05-12 08:39 | Outpatient (REF) | payer MEDICARE, SELFPAY ==
--- NOTE | ~2024-05-12 | MM_ITS ---
EXAMINATION: MM SCREENING DIGITAL BREAST TOMOSYNTHESIS, BILATERAL CLINICAL INFORMATION: Screening. Asymptomatic. COMPARISON: Mammography: Comparison is made with available priors TECHNIQUE: Digital breast mammography with tomosynthesis is performed in both the craniocaudal and mediolateral oblique views along with computer-aided detection (CAD). FINDINGS: The breasts are heterogeneously dense, which may obscure small masses (ACR BI-RADS breast composition Category c). There are no significant masses, abnormal calcifications, or other abnormalities. MM/MM tomosynthesis screening BI IMPRESSION: No mammographic evidence of malignancy. ASSESSMENT: BI-RADS BI-RADS 1 - Negative RECOMMENDATION: Routine annual mammography screening. 1 year F/U This examination should not preclude the clinical evaluation of a suspicious palpable abnormality. This patient's information was entered into a reminder system with a target due date for their next mammogram. Electronically signed by: Jayda Meng DO 05/23/2024 05:18 PM EDT
== END 2024-05-12 08:40 | disposition home or self-care (01) ==
LOC: HO.MAMMO 08:39
PROVIDERS: PCP Internal Medicine; Visit Provider Internal Medicine
DX: Z12.31 Encounter for screening mammogram for malignant neoplasm of breast (principal)
CPT/HCPCS: 77063; 77067

== ENCOUNTER → 2024-05-12 08:45 | Outpatient (BNV) | payer MEDICARE, SELFPAY | PROVIDERS: PCP Internal Medicine; Visit Provider Internal Medicine | DX: Z12.31 Encounter for screening mammogram for malignant neoplasm of breast (principal) | CPT/HCPCS: 77063; 77067 ==

== ENCOUNTER 2024-05-26 07:51 | Outpatient (REF) | payer MEDICARE, SELFPAY ==
[2024-05-26 08:09] LABS: MANUAL DIFF FLAG NO
[2024-05-26 08:35] LABS: Basophils Percent Auto 0.7 % (0-2); Eosinophils Absolute Auto 0.2 X10*3/uL (0.0-0.4); Eosinophils Percent Auto 2.7 % (0-4); Hematocrit 40.3 % (37.0-47.0); Hemoglobin 13.5 g/dl (12.0-16.0); Imm Gran Abs Auto 0.02 X10*3/uL (0.00-0.03); Imm Gran Pct Auto 0.3 % (0.0-0.4); Lymphocytes Absolute Auto 1.7 X10*3/uL (1.2-4.9); Lymphocytes Percent Auto 28.2 % (20-40); Mean Corpuscular HGB Conc 33.5 g/dl (31.0-35.0); Mean Corpuscular Hemoglobin 32.1 pg (27.0-33.0); Mean Platelet Volume 10.9 fL (9.4-12.3); Monocytes Absolute Auto 0.6 X10*3/uL (0.1-1.2); Monocytes Percent Auto 10.4 % (2-11); Neutrophils Absolute Auto 3.4 x10*3/uL (2.0-8.3); Neutrophils Percent Auto 57.7 % (45-73); Platelet Count 209 X10*3/uL (160-400); Red Cell Distribution Width 12.6 % (11.0-16.0); White Blood Count 5.9 X10*3/uL (4.8-10.8)
[2024-05-26 09:27] LABS: Alanine Aminotransferase 30 U/L (0-31); Albumin Level 4.3 g/dL (3.5-5.0); Alkaline Phosphatase 58 U/L (39-117); Anion Gap 12 (12-20); Aspartate Amino Transferase 27 U/L (5-31); Bilirubin Total 0.7 mg/dL (0.0-1.0); Blood Urea Nitrogen 12 mg/dL (9-16); Calcium 9.6 mg/dL (8.4-10.2); Carbon Dioxide 28 mmol/L (22-29); Chloride 109 mmol/L (96-108); Cholesterol 147 mg/dL (<200); Estimated Glomerular Filt Rate > 60; Glucose Fasting 91 mg/dL (60-99); HDL Cholesterol 57 mg/dL (>40); LDL Cholesterol Calculated 78 mg/dL (<100); Potassium 4.5 mmol/L (3.3-5.1); Sodium 144 mmol/L (135-145); TSH reflex Free T4 3.08 uIU/mL (0.32-4.0); Triglycerides 64 mg/dL (<150); Vitamin D 25-OH Total 50.2 ng/mL (>30)
[2024-05-26 09:33] LABS: Appearance Urine Clear; Color Urine Yellow; Glucose Urine UA Negative (Negative); Leukocyte Esterase Urine Small (1+) (Negative); Nitrite Urine Negative (Negative); PH 6.5 (5.0-9.0); Specific Gravity - Urine <= 1.005 (1.005-1.025); UMIC TRIGGER UACC YES; Urine Blood Negative (Negative); Urine Ketones Negative (Negative); Urine Protein Negative (Neg-Trace)
[2024-05-26 10:29] LABS: Bacteria Urine None Seen (None Seen); Hyaline Casts Urine 0-2 /LPF (0-2); RBC Urine 0-2 /HPF (0-2); Squamous Epithelial Cell Urine 0-2 /HPF (0-2); UACC Culture Trigger YES; WBC Urine 0-5 /HPF (0-5)
== END 2024-05-26 07:52 | disposition home or self-care (01) ==
LOC: HO.LAB 07:51
PROVIDERS: PCP Internal Medicine; Visit Provider Internal Medicine
DX: D64.9 Anemia, unspecified (principal); E78.00 Pure hypercholesterolemia, unspecified; E55.9 Vitamin D deficiency, unspecified; R30.0 Dysuria
CPT/HCPCS: 36415; 80053; 80061; 81001; 81003; 82306; 84443; 85025; 87086

== ENCOUNTER 2024-05-27 12:38 | Outpatient (AMB) | payer MEDICARE, SELFPAY ==
--- NOTE | 2024-05-27 12:44 | A.OFFPC_ITS ---
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 Accompanied by: Self / Same As Patient Allergies lisinopril Adverse Reaction (Intermediate, Verified 05/27/24 13:06) Stomach Upset Medication List - Last Reconciled 05/27/24 by Tristian Galvan MD alendronate 70 mg PO QWEEK ascorbic acid (vitamin C) 500 mg PO .QD atorvastatin 40 mg PO BEDTIME 90 days cholecalciferol (vitamin D3) 25 mcg PO DAILY lisinopril 5 mg PO DAILY 90 days magnesium carbonate 250 mg PO .QD meclizine 25 mg PO TID PRN 30 days metoprolol succinate ER 25 mg PO BID 90 days multivitamin 1 tab PO DAILY omeprazole 20 mg PO BID 90 days Tobacco use date assessed: 05/27/24 Fall risk assessment: No Falls in past year Last assessed Fall Risk: 05/27/24 Dental Screening Dental Screen Date: 05/27/24 Did you have a dental visit in the last 12 months?: No Did you have a dental problem in the last 6 months where you did not have access to dental care?: No Was dental information given to patient?: No HPI hyperlipidemia, HTN, GERD, osteoporosis HPI Details Patient comes in today for her follow up visit States that she feels okay She denies any headaches or dizziness Denies any chest pains, no shortness of breath No nausea/ vomiting, no abdominal pain No change in bowel habits noted She had her follow up labs done yesterday - to discuss her results [facility] Medical History Patellar fracture Osteopenia Galloway's esophagus Overweight (BMI 25.0-29.9) Pure hypercholesterolemia Benign essential hypertension GERD (gastroesophageal reflux disease) Surgical History History of cataract extraction Hx of tonsillectomy Hx of hysterectomy Hx of hemorrhoidectomy History of bladder suspension procedure History of esophagogastroduodenoscopy (EGD) Hx of colonoscopy Family History Mother Angina pectoris Hearing loss Father Colon cancer, Onset Age: 91 Hearing loss Colon polyp Sister Brain tumor Paternal Grandfather Lung cancer Maternal Grandfather Myocardial infarction Maternal Grandmother Scarlet fever Other Substance abuse Social History Household Members: None Housing: Other 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 Are you a primary rn critical care to a significant other at home: No Do you presently have visiting nurse or other home services: No Alcohol intake: former Patient Tobacco Use Status: Former Tobacco user e-Cigarette/Vaping Use: Never Used Second Hand Smoke Exposure: Yes service: No Current occupational status: retired Cognitive needs: No Hearing needs: No Vision needs: Yes (Glasses) Questionnaire PHQ-9 Over the last 2 weeks, how often have you been bothered by any of the following problems? 1. Little interest or pleasure in doing things: not at all 2. Feeling down, depressed, or hopeless: not at all 3. Trouble falling or staying asleep, or sleeping too much: not at all 4. Feeling tired or having little energy: not at all 5. Poor appetite or overeating: not at all 6. Feeling bad about yourself - or that you are a failure or have let yourself or your family down: not at all 7. Trouble concentrating on things, such as reading the newspaper or watching television: not at all 8. Moving or speaking so slowly that other people could have noticed. Or the opposite - being so fidgety or restless that you have been moving around a lot more than usual: not at all 9. Thoughts that you would be better off or of hurting yourself in some way: not at all Total score: 0 Depression Screening Interpretation: Negative Depression Screening Done: Yes 53211 - PHQ-9 Billing: Yes Source: Developed by Drs. Santos Prieto, Mamie Jason, Thomas Jacobson and colleagues, with an educational florian from [employer]. Thrive Questionnaire Date Thrive assessed: 05/27/24 I am a: Patient What is your living situation today?: I have a steady place to live Within the past 12 months, did the food you bought not last and you didn't have the money to get more?: Never true Within the past 12 months, did you worry whether your food would run out before you got money to buy more?: Never true Do you have trouble paying for medicines?: No Do you have trouble getting transportation to medical appointments?: No Do you have trouble paying your heating and electricity bill?: No Do you have trouble taking care of your child, family member or friend?: No Do you have trouble with day-to-day activities such as bathing, preparing meals, shopping, managing finances, etc.?: No Are you currently unemployed and looking for a job?: No Are you interested in more education?: No Please select the resources that you would like help with: None Currently or been in a relationship where the following occur: No concerns reported THRIVE Score: 0 AUDIT C Alcohol Use Questionnaire (AUDIT-C) 1. How often do you have a drink containing alcohol?: Never 3. How often do you have six or more drinks on one occasion?: Never Total Score: 0 Score Reviewed/Action Taken: Yes GAIL-7 AMB Questionnaire GAIL-7 Date GAIL - 7 assessed: 05/27/24 Feeling nervous, anxious, or on edge: 0 = Not at all Not being able to stop or control worryin = Not at all Worrying too much about different things: 0 = Not at all Trouble relaxin = Not at all Being so restless that it is hard to sit still: 0 = Not at all Becoming easily annoyed or irritable: 0 = Not at all Feeling afraid as if something awful might happen: 0 = Not at all Total GAIL-7 score (0-4 normal; 5-9 mild; 10-14 moderate; 15-21 severe): 0 Source: Developed by Drs. Santos Prieto, Mamie Jason, Thomas Jacobson and colleagues, with an educational florian from [employer]. Review of Systems Const Denies chills, Denies fatigue, Denies fever(s) and Denies headache(s) ENT Denies dysphagia, Denies dizziness, Denies otalgia, Denies headache(s), Reports hearing loss (in right ear), Denies neck pain, Denies odynophagia, Reports tinnitus (more prominent in the right ear) and Denies sore throat Card Denies chest pain and Denies dyspnea Resp Denies chest congestion, Denies cough and Denies dyspnea GI Denies abdominal pain, Denies constipation, Denies dysphagia, Denies diarrhea, Denies nausea, Denies odynophagia and Denies vomiting Denies nocturia, Denies dysuria and Denies urinary urgency Musc Reports back pain (over the lower back (on and off)), Denies arthralgias and Denies neck pain Skin/Breast Denies rash Neuro Denies dizziness and Denies headache(s) Psych Reports anxiety Endo Denies fatigue Physical exam (Primary Care) Vital Signs: Last Vital Signs Pulse 65 05/27/24 12:45 BP 130/82 05/27/24 12:45 Pulse Ox 98 05/27/24 12:45 Oxygen Delivery Method Room Air 05/27/24 12:45 BMI result Body Mass Index 26.5 Tobacco/Smoking Status: Tobacco use Status Tobacco use date assessed 05/27/24 05/27/24 12:51 Patient Tobacco Use Status Former Tobacco user 05/27/24 12:51 e-Cigarette/Vaping Use Never Used 05/27/24 12:51 PHQ-9: PHQ-9 Score PHQ-9: Total score 0 05/27/24 12:51 Depression Screening Interpretation: Negative Thrive Assessment: Date of Thrive Assessment Date Thrive assessed 05/27/24 05/27/24 12:51 Currently or been in a relationship where the following occur: No concerns reported Const General: no acute distress and alert HENMT Throat: Yes posterior oropharynx normal and Yes tonsils normal (no TP congestion noted) Neck Neck: Yes no lymphadenopathy and Yes supple Thyroid: Thyroid normal Resp Auscultation: clear to auscultation bilaterally, no rales and no wheezes Cardio Rate: regular rate Rhythm: regular rhythm Heart sounds: no murmurs GI Palpation (GI): Soft to palpation and nontender Auscultation: normal bowel sounds General: Yes no CVA tenderness Back/Spine/Pelvis Back: no CVA tenderness Thoracic/Lumbar Spine: lumbar spinal tenderness Skin Rashes: no rashes Extrem General: Yes no clubbing, cyanosis or edema Left lower extremity: knee Details: no tenderness Results Reviewed Results Reviewed: Laboratory Tests 05/26/24 05/26/24 08:07 08:08 WBC 5.9 Hgb 13.5 Hct 40.3 Plt Count 209 Sodium 144 Potassium 4.5 Creatinine 0.76 Estimated GFR > 60 Fasting Glucose 91 Calcium 9.6 AST 27 ALT 30 Triglycerides 64 Cholesterol 147 LDL Cholesterol, Calc 78 HDL Cholesterol 57 25-OH Vitamin D Total 50.2 TSH 3.08 Ur Specific [place] <= 1.005 Urine Protein Negative Urine Glucose (UA) Negative Urine Blood Negative Urine Nitrite Negative Ur Leukocyte Esterase Small (1+) H Coding Level of Care Code Est Pt Level 4 (47992) Complex EM visit Add On G2211 Diagnoses Pure hypercholesterolemia E78.00 Benign essential hypertension I10 Gastroesophageal reflux disease without esophagitis K21.9 Esophagitis presence: without esophagitis Age-related osteoporosis without current pathological fracture M81.0 Osteoporosis type: age-related Presence of current pathological fracture: without current pathological fracture Tinnitus of both ears H93.13 Laterality: bilateral Overweight (BMI 25.0-29.9) E66.3 Assessment & Plan Assessment & Plan (1) Pure hypercholesterolemia: Code(s): E78.00 - Pure hypercholesterolemia, unspecified Category: Medical Plan: Results of her labs done a few days ago reviewed and discussed with patient - she is advised that her cholesterol levels have improved slightly from previous Reinforced low cholesterol diet Continue Atorvastatin 40 mg QD Will recheck her labs and fasting lipids in 4 months for follow up (2) Benign essential hypertension: Code(s): I10 - Essential (primary) hypertension Category: Medical Plan: Her BP appears much better controlled currently Reinforced low sodium diet - goal is systolic BP of at least 140 mm or less Continue Metoprolol ER 25 mg BID and Lisinopril 2.5 mg QD Patient is reminded to continue monitoring her blood pressure regularly (3) GERD (gastroesophageal reflux disease): Code(s): K21.9 - Gastro-esophageal reflux disease without esophagitis Category: Medical Qualifiers: Esophagitis presence: without esophagitis Qualified Code(s): K21.9 - Gastro-esophageal reflux disease without esophagitis Plan: Dietary restrictions reinforced Continue Omeprazole 20 mg QD; she was started additionally on Famotidine 40 mh Q HS PRN by November EGD done in 2015 revealed findings of mild chronic gastritis; H. pylori was negative Follow up with GI as scheduled (4) Osteoporosis: Comment: started again on Alendronate in April 2023 Code(s): M81.0 - Age-related osteoporosis without current pathological fracture Category: Medical Qualifiers: Osteoporosis type: age-related Presence of current pathological fracture: without current pathological fracture Qualified Code(s): M81.0 - Age- related osteoporosis without current pathological fracture Plan: Repeat BMD done on 02/11/2024 revealed (+) severe osteoporosis based on the lowest T-score value of -2.6 in the femoral neck and history of fractures applying World Health Organization criteria Her BMD did show a slight improvement from her previous BMD in 2021 at the [facility] but is mostly unchanged in the left femur She has been prescribed Fosamax by Dr. Hernandez in the past but she did not want to take the Rx and has been taking OTC Calcium and Vitamin D daily instead but she was started back on Alendronate (Fosamax) by Dr. Bello in April 2023 Follow up with endocrinology (Dr. Bello) as scheduled (5) Tinnitus: Code(s): H93.19 - Tinnitus, unspecified ear Category: Medical Qualifiers: Laterality: bilateral Qualified Code(s): H93.13 - Tinnitus, bilateral Plan: Patient feels that this is more prominent in the right ear and has been bothering her more lately and keeping her up at night Have advised patient that her tinnitus is most likely due to hearing loss and unfortunately does not have any effective treatment options other than hearing augmentation Have instructed her before to try keeping some low volume of sound or music at her bedside (like a small clock radio) on at all times during the night and this should help mask out a lot of the ringing sensation in her ear and allow her to get some sleep Follow up with ENT (Dr. Anderson) as scheduled (6) Overweight (BMI 25.0-29.9): Code(s): E66.3 - Overweight Category: Medical Plan: Reinforced diet/exercise as tolerated/lose weight Plan Follow up in 4 months Orders: Orders Complete Blood Count Auto Diff 4 Months D64.9 - Anemia, unspecified Comprehensive [place]. Panel Fast 4 Months E78.00 - Pure hypercholesterolemia, unspecified Lipid Panel 4 Months E78.00 - Pure hypercholesterolemia, unspecified
[2024-05-27 12:45] VITALS: BP 130/82; PULSE 65; O2SAT 98; BMI 26.5
== END 2024-05-27 13:25 | disposition home or self-care (01) ==
PROVIDERS: PCP Internal Medicine; Visit Provider Internal Medicine
DX: E78.00 Pure hypercholesterolemia, unspecified (principal); I10 Essential (primary) hypertension; K21.9 Gastro-esophageal reflux disease without esophagitis; M81.0 Age-related osteoporosis without current pathological fracture; H93.13 Tinnitus, bilateral; E66.3 Overweight

== ENCOUNTER → 2024-05-27 12:38 | Outpatient (BNVA) | payer MEDICARE, SELFPAY | PROVIDERS: PCP Internal Medicine; Visit Provider Internal Medicine | DX: E78.00 Pure hypercholesterolemia, unspecified (principal); I10 Essential (primary) hypertension; K21.9 Gastro-esophageal reflux disease without esophagitis; M81.0 Age-related osteoporosis without current pathological fracture; H93.13 Tinnitus, bilateral; E66.3 Overweight | CPT/HCPCS: 96127; 99212 ==

== ENCOUNTER 2024-06-22 09:46 | Outpatient (REF) | payer MEDICARE, SELFPAY ==
[2024-06-22 10:59] LABS: Appearance Urine Clear; Color Urine Yellow; Glucose Urine UA Negative (Negative); Leukocyte Esterase Urine Negative (Negative); Nitrite Urine Negative (Negative); PH 6.5 (5.0-9.0); Specific Gravity - Urine <= 1.005 (1.005-1.025); Urine Blood Negative (Negative); Urine Ketones Negative (Negative); Urine Protein Negative (Neg-Trace)
== END 2024-06-22 09:47 | disposition home or self-care (01) ==
LOC: HO.LAB 09:46
PROVIDERS: PCP Internal Medicine; Visit Provider Nurse Practitioner Family
DX: R30.0 Dysuria (principal)
CPT/HCPCS: 81003

== ENCOUNTER 2024-07-19 09:27 | Outpatient (AMB) | payer MEDICARE, SELFPAY ==
--- NOTE | 2024-07-19 09:28 | MHC.OFFVIS ---
Vital Signs 07/19/24 09:31 Height 5 ft 3.11 in Weight 154 lb 5.177 oz BMI 27.2 BP 116/64 Blood Pressure Location Lt brachial Position Sitting Pulse 66 Pulse Source Pulse Oximeter Intake Visit Reasons: F/U Osteoporosis-confirmed Intake Note: Patient present today for Osteoporosis follow up. 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 First diagnosed in 2 yrs ago . Received treatment in the past with Fosamax but didn't take it , n. No history of pathologic fracture or ONJ. Fxed patellar and elbow with hard fall. Fxed L4 compression fx sonya gup storage unit Has several servings of dietary calcium per day in the form of cheese and yogurt . Takes Calcium supplement ? mg daily in divided doses. Takes ? IU of Vitamin D daily. Denies ever using PPI, anticoagulant, antiepileptic or glucocorticoid medication. Does some weight bearing exercise once a mo . 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 UTD on dental cleanings and sees dentist every 6 months. No planned upcoming dental work or extractions. DXA dated 12/17/2021:[facility] [place] [address] Mammography Report Signed Patient: Melanie Quiros Date of Service: 12/17/21 Follow Up: Procedure(s): XR DEXA axial skeleton Accession Number(s): [id number] cc: Tristian Galvan MD~ EXAMINATION: BONE DENSITOMETRY CLINICAL INDICATION: Asymptomatic. COMPARISON: Previous BD dated 01/06/2019 and baseline BD dated 07/27/2007. TECHNIQUE: Using a [employer] DXA System (software version: 13.1) manufactured by [employer], dual-energy x-ray absorptiometry was performed of the lumbar spine and left hip. The images are of good technical quality. Summary results are attached. FINDINGS: [facility] SPINE L1-L4:? Current: BMD 0.944 g/cm2, Z-score -0.4, T-score -2.0, osteopenia, 5.3% decrease from previous, 5.4% decrease from baseline (<5% change is not significant). Prior: BMD 0.933 g/cm2. Baseline: BMD 0.937 g/cm2. LEFT FEMUR, NECK: Current: BMD 0.678 g/cm2, Z-score -0.9, T-score -2.6, osteoporosis. Prior: BMD 0.713 g/cm2. Baseline: BMD 0.735 g/cm2. LEFT FEMUR, TOTAL: Current: BMD 0.733 g/cm2, Z-score -0.7, T-score -2.2, osteopenia, 1.9% decrease from previous, 4.1% decrease from baseline (<5% change is not significant). Prior: BMD 0.747 g/cm2. Baseline: BMD 0.764 g/cm2. IDENTIFIED RISK FACTORS: Recurrent falls, height loss, history of fracture (adult). Early menopause, secondary osteoporosis, hysterectomy, right oophorectomy. HISTORY OF FRACTURE: L5 vertebral body, elbow, wrist, patella. MEDICATIONS: Calcium supplements or multivitamin, vitamin D. MM/XR DEXA axial skeleton IMPRESSION: 1. DIAGNOSIS: Osteoporosis based on the lowest T-score Labs: Currently on alendronate 70 mg Q weekly. Started 09/2022 Recent DEXA shows stability in bone density [facility] Medical History Patellar fracture Osteopenia Galloway's esophagus Overweight (BMI 25.0-29.9) Pure hypercholesterolemia Benign essential hypertension GERD (gastroesophageal reflux disease) Surgical History History of cataract extraction Hx of tonsillectomy Hx of hysterectomy Hx of hemorrhoidectomy History of bladder suspension procedure History of esophagogastroduodenoscopy (EGD) Hx of colonoscopy Family History Mother Angina pectoris Hearing loss Father Colon cancer, Onset Age: 91 Hearing loss Colon polyp Sister Brain tumor Paternal Grandfather Lung cancer Maternal Grandfather Myocardial infarction Maternal Grandmother Scarlet fever Other Substance abuse Social History Household Members: None Housing: Other 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 Are you a primary child adolescent care to a significant other at home: No Do you presently have visiting nurse or other home services: No Alcohol intake: former Patient Tobacco Use Status: Former Tobacco user e-Cigarette/Vaping Use: Never Used Second Hand Smoke Exposure: Yes service: No Current occupational status: retired Cognitive needs: No Hearing needs: No Vision needs: Yes (Glasses) Physical Exam Vital Signs: Last Vital Signs Pulse 66 07/19/24 09:31 BP 116/64 07/19/24 09:31 BMI result Body Mass Index 27.2 Assessment & Plan Assessment & Plan (1) Osteoporosis: Comment: started again on Alendronate in April 2023 Code(s): M81.0 - Age-related osteoporosis without current pathological fracture Category: Medical Qualifiers: Osteoporosis type: age-related Presence of current pathological fracture: without current pathological fracture Qualified Code(s): M81.0 - Age-related osteoporosis without current pathological fracture Plan: This 71-year-old white female with a history of osteoporosis and several falls and fractures. Secondary workup was negative. Currently on alendronate 70 mg weekly. Recent DEXA showed debility and bone density with borderline osteoporosis Will check urine NTX. Continue alendronate Coding Level of Care Code Est Pt Level 3 (66013) Diagnoses Age-related osteoporosis without current pathological fracture M81.0 Osteoporosis type: age-related Presence of current pathological fracture: without current pathological fracture
[2024-07-19 09:31] VITALS: BP 116/64; PULSE 66; BMI 27.2
== END 2024-07-19 10:01 | disposition home or self-care (01) ==
PROVIDERS: PCP Internal Medicine; Visit Provider Internal Medicine Endocrinology, Diabetes & Metabolism
DX: M81.0 Age-related osteoporosis without current pathological fracture (principal)
CPT/HCPCS: 99213

== ENCOUNTER → 2024-07-19 09:27 | Outpatient (BNVA) | payer MEDICARE, SELFPAY | PROVIDERS: PCP Internal Medicine; Visit Provider Internal Medicine Endocrinology, Diabetes & Metabolism | DX: M81.0 Age-related osteoporosis without current pathological fracture (principal) | CPT/HCPCS: 99212 ==

== ENCOUNTER 2024-11-14 12:36 | Outpatient (AMB) | payer MEDICARE, SELFPAY ==
[2024-11-14 12:41] VITALS: BP 130/68; PULSE 72; BMI 26.6
--- NOTE | 2024-11-14 12:41 | MHC.OFFVIS ---
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 She states that she was seeing Dr. Hernandez for primary care as well as Cardiology. Apparently, she was having palpitations in the past. However, no clear diagnosis. After that, she was put on beta-blockers and she states that she was actually feeling better. However, more recently, she is again feeling palpitations. She describes sensations of pulsations in the neck which can happen frequently. She feels it regularly, sometimes daily. She is bothered by these. She also has a history of hypertension. Apparently was taking Lisinopril but she felt dizzy and hence stopped it herself. She has been monitoring her own blood pressures in the ER apparently within range for the most part. Denies any history of coronary disease or myocardial infarction or cardiomyopathy or any other major cardiac issues. PENDING SALE TO [facility] Medical History Patellar fracture Osteopenia Galloway's esophagus Overweight (BMI 25.0-29.9) Pure hypercholesterolemia Benign essential hypertension GERD (gastroesophageal reflux disease) Surgical History History of cataract extraction Hx of tonsillectomy Hx of hysterectomy Hx of hemorrhoidectomy History of bladder suspension procedure History of esophagogastroduodenoscopy (EGD) Hx of colonoscopy Family History Mother Angina pectoris Hearing loss Father Colon cancer, Onset Age: 91 Hearing loss Colon polyp Sister Brain tumor Paternal Grandfather Lung cancer Maternal Grandfather Myocardial infarction Maternal Grandmother Scarlet fever Other Substance abuse Social History Household Members: None Housing: Other 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 Are you a primary personal care assistant to a significant other at home: No Do you presently have visiting nurse or other home services: No Alcohol intake: former Patient Tobacco Use Status: Former Tobacco user e-Cigarette/Vaping Use: Never Used Second Hand Smoke Exposure: Yes service: No Current occupational status: retired Cognitive needs: No Hearing needs: No Vision needs: Yes (Glasses) Review of Systems Const Denies weakness ENT Denies dizziness Card Denies chest pain, Denies chest pain with activity, Denies syncope, Denies rapid heart rate, Denies pedal edema, Denies edema, Denies leg edema, Denies lightheadedness, Reports palpitations, Denies dyspnea, Denies dyspnea on exertion and Denies orthopnea Resp Denies cough, Denies dyspnea and Denies dyspnea on exertion GI Denies hematochezia and Denies change in stool character Musc Denies abnormal gait, Denies muscle cramps, Denies muscle weakness, Denies numbness, Denies radiating pain into limb and Denies tingling Neuro Denies abnormal gait, Denies dizziness, Denies syncope, Denies numbness, Denies tingling and Denies weakness Endo Reports palpitations Physical Exam Vital Signs: Last Vital Signs Pulse 72 11/14/24 12:41 BP 130/68 11/14/24 12:41 BMI result Body Mass Index 26.6 Const General: comfortable and no acute distress Orientation/consciousness: patient oriented x3 HEENT Other: Unremarkable Head: Yes normal to inspection Neck Neck: Yes normal visual inspection Chest Chest palpation & inspection: normal inspection of the chest Resp Auscultation: clear to auscultation bilaterally Cardio Palpation: normal PMI Heart sounds: S1 normal heart sound present, S2 normal heart sound present, no gallops, no murmurs and no rubs GI Palpation (GI): Soft to palpation Back/Spine/Pelvis Other: unremarkable Skin General skin exam: no rashes or lesions noted Neuro General: patient oriented x3 Extrem General: Yes normal to inspection Psych Mental Status: mental status grossly normal Assessment & Plan Assessment & Plan (1) Palpitations: Code(s): R00.2 - Palpitations Category: Medical Plan: History suggestive of supraventricular/ventricular ectopy. Less likely other arrhythmias like atrial flutter or fibrillation. Obtain Holter monitor. Obtain echocardiogram. May remain on beta-blockers. (2) Primary hypertension: Code(s): I10 - Essential (primary) hypertension Category: Medical Plan: In the EKG, underlying rhythm is sinus at 75/Min; leftward axis; left ventricular hypertrophy; nonspecific ST-T changes. Normal CT/corrected QT. Per patient, she stopped Lisinopril because of dizziness. Blood pressure seems to be reasonable. Obtain echocardiogram as above. Orders: Orders CA echo transthoracic complete Today I51.7 - Cardiomegaly, R00.2 - Palpitations ECG 7 day holter monitor Today R00.2 - Palpitations Coding Level of Care Code New Pt Level 4 (92155) Complex EM visit Add On G2211 Diagnoses Palpitations R00.2 Primary hypertension I10
== END 2024-11-14 13:06 | disposition home or self-care (01) ==
PROVIDERS: PCP Internal Medicine; Visit Provider Internal Medicine
DX: R00.2 Palpitations (principal); I10 Essential (primary) hypertension
CPT/HCPCS: 99204; G2211

== ENCOUNTER → 2024-11-14 12:36 | Outpatient (BNVA) | payer MEDICARE, SELFPAY | PROVIDERS: PCP Internal Medicine; Visit Provider Internal Medicine | DX: R00.2 Palpitations (principal); I10 Essential (primary) hypertension; I51.7 Cardiomegaly | CPT/HCPCS: 99202 ==

== ENCOUNTER → 2024-11-30 07:43 | Outpatient (REF) | payer MEDICARE, SELFPAY ==
--- OUTSIDE RECORDS SUMMARY | 2024-11-30 07:47 | XMS_ITS | Continuity of Care Document ---
Author Organization [facility] Address [address] [place] [address] [address] [place] [address] Phone Care Team Providers Care Electrical Continuity Inspector Name Role Phone Fredrick JONES FACS RVT [...] Min Trial - Telemedicine [facility], [address] [place] [address] [address], [place], [id number], [place] tel:[phone] CVR [facility] [place] Venous insufficiency (chronic) (peripheral) 3 Fredrick JONES FACS CASSIUS Erazo. [address] [facility], [address], [place], [address], [place]. tel:[phone] Referring Provider: Tristian Galvan MD, [address] [place] [address] Dr [address], [place], [address]. tel:[phone] Office/Outpt E&M Established 15 Mins [facility], [address] [place] [address] Dr Huffman [address], [id number], tel:[phone] CVR - [place] - [place] Venous insufficiency (chronic) (peripheral) 3 Fredrcik Erazo. [address] [place] [address], [facility] [place], [address], [place]. tel:[phone] Referring Provider: Tristian Galvan MD, [address] [facility] [address]man [facility], [place], [address]. tel:[phone] [facility], [address] [place] [address] Dr Huffman [address], [id number], [place] tel:[phone] CVR - [place] Venous insufficiency (chronic) (peripheral) 3 Fredrick Erazo. [address] [place] [address], [place], [address], [place]. tel:[phone] Referring Provider: Tristian Galvan MD, [address] [facility] [address] Huffman [facility], [place], [address]. tel:[phone] Office/Oupt E&M New Pt 30 Mins [facility], [address] [place] [address] Dr Huffman [address], [id number], [place] tel:[phone] CVR - [place] - [place] Venous insufficiency (chronic) (peripheral)Cr amp and spasmEssential (primary) hypertension 3 Fredrick Erazo. [address] [place] [address], [place] [address], [place], [address], [place]. tel:[phone] Referring Provider: Tristian Galvan MD, [address] [facility] [address], [place], [address]. tel:[phone] Family History Family Member Type Diagnosis Age At Onset No Information Payers Payer name Insurance type Covered republican ID Authorfranco aldana(s) [place] Ad[place] [id number] Social History Type Description Quantity Date Captured [...]
--- NOTE | 2024-11-30 07:50 | CA_ITS ---
Transthoracic Echocardiogram Patient (Last, First, Middle): Melanie Quiros A Gender: Female Date of : 1950 Age: 74 Procedure Date: 11/30/2024 Procedure Type: Transthoracic Echocardiogram Location: OP Height: 160.02 cm Weight: 67.59 kg BSA: 1.71 m2 Heart Rate: bpm BP: 130 / 68 mmHg Consumer Loan Manager: ANDERS Referring MD: Baltazar Tran MD Morning Nanny: Luigi Hearn MD Symptoms: R00.2 - Palpitations Study Quality: Adequate ECG Rhythm: Sinus Conclusions: - 1. Normal LV ejection fraction 60 65% with impaired relaxation filling pattern 2. Normal cardiac valvular Dopplers 3. Normal RV systolic pressure 4. Mildly dilated ascending aorta 3.7 cm 5. No gross pericardial effusion Findings Left Ventricle Normal left ventricular size, thickness, and systolic function. The visually estimated ejection fraction is between 60-65%. Spectral Doppler is indicative of an impaired relaxation filling pattern. E/E prime ratio is between 8 and 15 consistent with indeterminate filling pressures. Right Ventricle Normal right ventricular cavity size and systolic function. Atria The left atrium is normal in size. There is lipomatous hypertrophy of the interatrial septum. There is no evidence of interatrial shunt. The right atrium is normal in size. Aortic Valve Normal aortic valve structure and function. There is no aortic valve stenosis. There is no aortic valve regurgitation. Mitral Valve Normal mitral valve structure and function. There is no mitral valve regurgitation. There is no mitral valve stenosis. Pulmonic Valve The pulmonic valve is likely normal. There is trace pulmonic valve regurgitation. Tricuspid Valve Normal tricuspid valve structure. There is trace tricuspid valve regurgitation. The right ventricular systolic pressure is normal. The right ventricular systolic pressure is 30 mmHg. Normal right atrial pressure. There is no evidence of pulmonary hypertension. Great Vessels The pulmonary artery was not well visualized. There is mild dilatation of the ascending aorta measuring 3.70 cm. Venous The inferior vena cava is normal in size and collapses greater than 50% with inspiration. Pericardium/Pleural There is no evidence of pericardial effusion. Prior Study Comparison no prior study in the last 5 years for comparison Measurements 2D Linear Measurements IVSd: 0.90 0.6-0.9/0.6-1.0 cm LVIDd: 4.10 3.9-5.3/4.2-5.9 cm LVIDd Index: 2.40 2.4-3.2/2.2-3.1 cm/m2 LVIDs: 3.07 2.0-3.6 cm LVPWd: 0.72 0.7-1.1 cm LA Diam: 3.60 2.7-3.8/3.0-4.0 cm LAIDs Index: 2.11 1.5-2.3 cm/m2 LV Mass: 122.55 67-162/88-224 g LV Mass Index: 71.67 43-95/49-115 g/m2 LVOT Diam: 2.10 3.0+(-)1.3 cm 2D Systolic Function EF 4C: 62.00 >55% EF 2C: 60.80 >55% EF BiP: 62.80 >55% Mitral Valve MV Pk E: 0.60 MV PK A: 0.90 MV Decel Time: 188.00 E/A: 0.70 E'Lateral: 8.05 E'Medial: 5.00 E/E' Med: 11.90 E/E' Lat: 7.40 PHT: 55.00 MVA PHT: 4.00 Decel [place]: 3.17 Aortic Valve AoV Pk David: 1.13 AoV Mn David: 0.74 AoV VTI: 0.26 AoV Pk Grad: 5.00 Aov Mn Grad: 3.00 TURNER Cont.VTI: 2.86 LVOT LVOT Pk David: 0.94 LVOT Mn David: 0.58 LVOT VTI: 0.22 LVOT Pk Grad: 4.00 LVOT Mn Grad: 2.00 LVOT Diam: 2.10 LVOT Area: 3.46 Diastolic Function MV Pk E: 0.60 MV Pk A: 0.90 E/A: 0.70 E'Medial: 5.00 E/E' Med: 11.90 E' Laterial: 8.05 E/E' Lat: 7.40 Right Ventricle TAPSE (mm): 22.20 TVS' David: 12.30 Tricuspid Valve TR Pk David: 2.61 TR Pk Grad: 27.00 RA Press: 3.00 RVSP: 30.00 Great Vessels Aorta Sinus of Valsalva: 3.40 2.0-3.[address] Ridge: 2.77 1.7-3.4 cm Ao Asc: 3.70 2.1-3.4 cm Ao Arch: 3.10 Updated in Other Vendor System with Status of Final Luigi Hearn MD electronically signed on 11/30/2024 5:02:20 PM with status of Final
== END ==
LOC: HO.CARD 07:43
PROVIDERS: PCP Internal Medicine; Visit Provider Internal Medicine
DX: R00.2 Palpitations (principal); I51.7 Cardiomegaly
CPT/HCPCS: 93242; 93306

== ENCOUNTER → 2024-11-30 07:50 | Outpatient (BNV) | payer MEDICARE, SELFPAY | PROVIDERS: PCP Internal Medicine; Visit Provider Internal Medicine Cardiovascular Disease | DX: I42.2 Other hypertrophic cardiomyopathy (principal); I77.810 Thoracic aortic ectasia | CPT/HCPCS: 93306 ==

== ENCOUNTER 2024-12-17 07:32 | Outpatient (REF) | payer MEDICARE, SELFPAY ==
--- OUTSIDE RECORDS SUMMARY | 2024-12-17 07:35 | XMS_ITS | Clinical Summary ---
Author Organization [facility] Address [address] [address] Phone Care Team Providers Care Paleologist Name Role Phone Tristian Galvan MD Primary Care Provider [phone] Allergies No known active allergies Medications Medication Sig Dispensed Refills Start Date End Date Status alendronate (FOSAMAX) 70 MG tablet TAKE 1 TABLET BY MOUTH ONCE WEEKLY 10/03/2023 Active atorvastatin (LIPITOR) 40 MG tablet Take 40 mg by mouth nightly at bedtime. 09/29/2023 Active famotidine (PEPCID) 40 MG tablet take 1 tablet by mouth everyday at bedtime 12/06/2023 Active lisinopril (PRINIVIL,ZESTRIL) 2.5 MG tablet Take 1 tablet by mouth every morning. 10/30/2023 Active metoprolol succinate (TOPROL-XL) 25 MG 24 hr tablet Take 1 tablet by mouth 2 (two) times a day. 10/30/2023 Active omeprazole (PRILOSEC) 20 MG capsule Take 1 capsule by mouth every morning. 10/30/2023 Active naproxen (NAPROSYN) 500 MG tablet Take 1 tablet (500 mg total) by mouth 2 (two) times a day for 3 days. Then twice daily as needed for pain, inflammation 20 tablet 12/15/2023 Active cyclobenzaprine (FLEXERIL) 10 MG tablet Take 1 tablet (10 mg total) by mouth 3 (three) times a day as needed (muscle). 12 tablet 12/15/2023 Active Active Problems No known active problems Social History Tobacco Use Types Packs/Day Years Used Date Smoking Tobacco: Former Cigarettes Smokeless Tobacco: Never Tobacco Cessation:Counseling Given: Not Answered Education Answer Date Recorded Are you interested in more education? Not on dianne e 12/15/2023 Are you concerned about learning? Not on file 12/15/2023 No 12/15/2023 No 12/15/2023 Digital Access Answer Date Recorded No 12/15/2023 No 12/15/2023 Reliable internet access at home? Not on file 12/15/2023 Device with a working camera? Not on file Sex and Gender Information Value Date Recorded Sex Assigned at Not on file Gender Identity Not on file Sexual Orientation Not on file Last Filed Vital Signs Vital Sign Reading Time Taken Comments Blood Pressure 149/76 12/15/2023 4:40 PM EDT Pulse 65 12/15/2023 4:40 PM EDT Temperature 37.1 ??C (98.8 ??F) 12/15/2023 4:40 PM ED T Respiratory Rate 16 12/15/2023 4:40 PM EDT Oxygen Saturation 96% 12/15/2023 4:40 PM EDT Inhaled Oxygen Concentration - - Weight - - Height - - Body Mass Index - - Plan of Treatment Health Maintenance Due Date Last Done Comments CREATININE LEVEL 1950 LIPID PANEL 1950 POTASSIUM LEVEL 1950 DEPRESSION SCREENING 1961 SMOKING Hx and SMOKELESS TOBACCO SCREENING 1962 HEPATITIS B SCREENING 11/20/1967 HEPATITIS C SCREENING 11/20/1967 MAMMOGRAM 1989 COLOGUARD 1994 COLONOSCOPY 1994 COLORECTAL CANCER SCREENING 1994 FIT TEST 1994 FOBT 1994 SIGMOIDOSCOPY 1994 VIRTUAL COLONOSCOPY 1994 ZOSTER VACCINES (1 of 2) 11/20/1999 OSTEOPOROSIS SCREENING INITIAL (ONE-TIME) 2014 INFLUENZA VACCINE (#1) 2024 2, 05/21/2021, 04/25/2020, Additional history exists COVID-19 VACCINE ( - 2023- season) 2024 11/22/2020, 11/01/2020 RSV VACCINE (1 - 1-dose 75+ series) 2024 Adult Td,Tdap Booster 03/27/2032 03/27/2022 PNEUMOCOCCAL VACCINES (50+ years) Completed 06/14/2018, 09/20/2016 HEPATITIS A VACCINES Aged Out No long er eligible based on patient's age to complete this topic HEPATITIS B VACCINES Aged Out No long er eligible based on patient's age to complete this topic HIB VACCINES Aged Out No longer eligi ble based on patient's age to complete this topic MENINGOCOCCAL VACCINES (ACWY) Aged Out No longer eligible based on patient's age to complete this topic Medical Devices Not on file Care Teams Paleologist Relationship Specialty Start Date End Date Tristian Galvan MD [address] [place] [address] Dr [address] [facility] [place] [address] PCP - General 12/15/23 Additional Source Comments The information contained in this document represents components of the legal health record. It is not the complete legal health record.[facility]
[2024-12-17 08:10] LABS: MANUAL DIFF FLAG NO
[2024-12-17 08:21] LABS: Basophils Absolute Auto 0.1 X10*3/uL (0.0-0.2); Basophils Percent Auto 1.1 % (0-2); Eosinophils Absolute Auto 0.2 X10*3/uL (0.0-0.4); Eosinophils Percent Auto 3.6 % (0-4); Hemoglobin 13.3 g/dl (12.0-16.0); Imm Gran Abs Auto 0.01 X10*3/uL (0.00-0.03); Imm Gran Pct Auto 0.2 % (0.0-0.4); Lymphocytes Absolute Auto 1.4 X10*3/uL (1.2-4.9); Lymphocytes Percent Auto 31.8 % (20-40); Mean Corpuscular HGB Conc 34.1 g/dl (31.0-35.0); Mean Corpuscular Hemoglobin 32.1 pg (27.0-33.0); Mean Corpuscular Volume 94.2 fL (80.0-98.0); Mean Platelet Volume 10.2 fL (9.4-12.3); Monocytes Absolute Auto 0.5 X10*3/uL (0.1-1.2); Monocytes Percent Auto 10.5 % (2-11); Neutrophils Absolute Auto 2.3 x10*3/uL (2.0-8.3); Neutrophils Percent Auto 52.8 % (45-73); Platelet Count 192 X10*3/uL (160-400); Red Blood Count 4.14 X10*6/uL (4.20-5.50); Red Cell Distribution Width 12.4 % (11.0-16.0); White Blood Count 4.4 X10*3/uL (4.8-10.8)
[2024-12-17 08:49] LABS: Appearance Urine Clear; Color Urine Yellow; Glucose Urine UA Negative (Negative); Leukocyte Esterase Urine Small (1+) (Negative); Nitrite Urine Negative (Negative); PH 5.5 (5.0-9.0); UMIC TRIGGER UACC YES; Urine Blood Negative (Negative); Urine Ketones Negative (Negative); Urine Protein Negative (Neg-Trace)
[2024-12-17 08:55] LABS: Alanine Aminotransferase 23 U/L (0-31); Albumin Level 4.1 g/dL (3.5-5.0); Alkaline Phosphatase 62 U/L (39-117); Anion Gap 10 (12-20); Aspartate Amino Transferase 21 U/L (5-31); Bilirubin Total 0.6 mg/dL (0.0-1.0); Blood Urea Nitrogen 14 mg/dL (9-16); Calcium 9.2 mg/dL (8.4-10.2); Carbon Dioxide 26 mmol/L (22-29); Chloride 111 mmol/L (96-108); Cholesterol 163 mg/dL (<200); Estimated Glomerular Filt Rate > 60; Glucose Fasting 92 mg/dL (60-99); HDL Cholesterol 61 mg/dL (>40); LDL Cholesterol Calculated 89 mg/dL (<100); Potassium 4.3 mmol/L (3.3-5.1); Sodium 143 mmol/L (135-145); Total Protein 6.7 g/dL (6.5-8.0); Triglycerides 66 mg/dL (<150)
[2024-12-17 09:04] LABS: Bacteria Urine None Seen (None Seen); Hyaline Casts Urine 0-2 /LPF (0-2); RBC Urine 0-2 /HPF (0-2); Squamous Epithelial Cell Urine 0-2 /HPF (0-2); UACC Culture Trigger YES; WBC Urine 0-5 /HPF (0-5)
[2024-12-17 09:11] LABS: TSH reflex Free T4 3.51 uIU/mL (0.32-4.0)
[2024-12-17 09:21] LABS: Folate 13.8 ng/mL (> or = 4.0); Vitamin B12 345 pg/mL (200-900)
== END 2024-12-17 07:33 | disposition home or self-care (01) ==
LOC: HO.LAB 07:32
PROVIDERS: PCP Internal Medicine; Visit Provider Internal Medicine
DX: D64.9 Anemia, unspecified (principal); E55.9 Vitamin D deficiency, unspecified; E53.8 Deficiency of other specified B group vitamins; E78.00 Pure hypercholesterolemia, unspecified; R30.0 Dysuria
CPT/HCPCS: 36415; 80053; 80061; 81001; 82306; 82607; 82746; 84443; 85025; 87086

== ENCOUNTER 2024-12-21 15:29 | Outpatient (AMB) | payer MEDICARE, SELFPAY ==
[2024-12-21 15:30] VITALS: BP 112/68; PULSE 80; O2SAT 96; BMI 26.8
--- NOTE | 2024-12-21 15:30 | MHC.PC.OV ---
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 Required: No Accompanied by: Self / Same As Patient Allergies No Known Allergies Allergy (Verified 12/21/24 15:59) Medication List - Last Reconciled 12/21/24 by Tristian Galvan MD alendronate 70 mg PO QWEEK ascorbic acid (vitamin C) 500 mg PO .QD atorvastatin 40 mg PO BEDTIME 90 days cholecalciferol (vitamin D3) 25 mcg PO DAILY magnesium carbonate 250 mg PO .QD meclizine 25 mg PO TID PRN 30 days metoprolol succinate ER 25 mg PO BID 90 days multivitamin 1 tab PO DAILY omeprazole 20 mg PO BID Tobacco use date assessed: 12/21/24 Fall risk assessment: No Falls in past year Last assessed Fall Risk: 12/21/24 Dental Screening Dental Screen Date: 12/21/24 Did you have a dental visit in the last 12 months?: No Did you have a dental problem in the last 6 months where you did not have access to dental care?: No Was dental information given to patient?: No HPI [facility] f/u HPI Details Patient comes in today for her follow up visit States that she feels okay She denies any headaches or dizziness Denies any chest pains, no shortness of breath No nausea/ vomiting, no abdominal pain No change in bowel habits noted She had her follow up labs done a few days ago - to discuss her results [facility] Medical History Patellar fracture Osteopenia Galloway's esophagus Overweight (BMI 25.0-29.9) Pure hypercholesterolemia Benign essential hypertension GERD (gastroesophageal reflux disease) Surgical History History of cataract extraction Hx of tonsillectomy Hx of hysterectomy Hx of hemorrhoidectomy History of bladder suspension procedure History of esophagogastroduodenoscopy (EGD) Hx of colonoscopy Family History Mother Angina pectoris Hearing loss Father Colon cancer, Onset Age: 91 Hearing loss Colon polyp Sister Brain tumor Paternal Grandfather Lung cancer Maternal Grandfather Myocardial infarction Maternal Grandmother Scarlet fever Other Substance abuse Social History Household Members: None Housing: Other 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 Are you a primary career resource specialist to a significant other at home: No Do you presently have visiting nurse or other home services: No Alcohol intake: former Patient Tobacco Use Status: Former Tobacco user e-Cigarette/Vaping Use: Never Used Second Hand Smoke Exposure: Yes service: No Current occupational status: retired Cognitive needs: No Hearing needs: No Vision needs: Yes (Glasses) Questionnaire PHQ-9 Over the last 2 weeks, how often have you been bothered by any of the following problems? 1. Little interest or pleasure in doing things: not at all 2. Feeling down, depressed, or hopeless: not at all 3. Trouble falling or staying asleep, or sleeping too much: not at all 4. Feeling tired or having little energy: not at all 5. Poor appetite or overeating: not at all 6. Feeling bad about yourself - or that you are a failure or have let yourself or your family down: not at all 7. Trouble concentrating on things, such as reading the newspaper or watching television: not at all 8. Moving or speaking so slowly that other people could have noticed. Or the opposite - being so fidgety or restless that you have been moving around a lot more than usual: not at all 9. Thoughts that you would be better off or of hurting yourself in some way: not at all Total score: 0 Depression Screening Interpretation: Negative Depression Screening Done: Yes 46275 - PHQ-9 Billing: Yes Source: Developed by Drs. Santos Prieto, Mamie Jason, Thomas Jacobson and colleagues, with an educational florian from [employer]. Thrive Questionnaire Date Thrive assessed: 12/21/24 I am a: Patient What is your living situation today?: I have a steady place to live Within the past 12 months, did the food you bought not last and you didn't have the money to get more?: Often true Within the past 12 months, did you worry whether your food would run out before you got money to buy more?: Never true Do you have trouble paying for medicines?: No Do you have trouble getting transportation to medical appointments?: No Do you have trouble paying your heating and electricity bill?: No Do you have trouble taking care of your child, family member or friend?: No Do you have trouble with day-to-day activities such as bathing, preparing meals, shopping, managing finances, etc.?: No Are you currently unemployed and looking for a job?: No Are you interested in more education?: No Please select the resources that you would like help with: None Currently or been in a relationship where the following occur: No concerns reported THRIVE Score: 1 AUDIT C Alcohol Use Questionnaire (AUDIT-C) 1. How often do you have a drink containing alcohol?: Never 3. How often do you have six or more drinks on one occasion?: Never Total Score: 0 Score Reviewed/Action Taken: Yes GALI-7 AMB Questionnaire GAIL-7 Date GAIL - 7 assessed: 12/21/24 Feeling nervous, anxious, or on edge: 0 = Not at all Not being able to stop or control worryin = Not at all Worrying too much about different things: 0 = Not at all Trouble relaxin = Not at all Being so restless that it is hard to sit still: 0 = Not at all Becoming easily annoyed or irritable: 0 = Not at all Feeling afraid as if something awful might happen: 0 = Not at all Total GAIL-7 score (0-4 normal; 5-9 mild; 10-14 moderate; 15-21 severe): 0 Source: Developed by Drs. Santos Prieto, Mamie Jasno, Thomas Jacobson and colleagues, with an educational florian from [employer]. Review of Systems Const Denies chills, Denies fatigue, Denies fever(s) and Denies headache(s) ENT Denies dysphagia, Denies dizziness, Denies otalgia, Denies headache(s), Reports hearing loss (in right ear), Denies neck pain, Denies odynophagia, Reports tinnitus (more prominent in the right ear) and Denies sore throat Card Denies chest pain and Denies dyspnea Resp Denies chest congestion, Denies cough and Denies dyspnea GI Denies abdominal pain, Denies constipation, Denies dysphagia, Denies diarrhea, Denies nausea, Denies odynophagia and Denies vomiting Denies difficulty voiding, Denies nocturia, Denies dysuria and Denies urinary urgency Musc Reports back pain (over the lower back (on and off)), Denies arthralgias and Denies neck pain Skin/Breast Denies rash Neuro Denies dizziness and Denies headache(s) Psych Reports anxiety Endo Denies fatigue Physical exam (Primary Care) Vital Signs: Last Vital Signs Pulse 80 12/21/24 15:30 BP 112/68 12/21/24 15:30 Pulse Ox 96 12/21/24 15:30 Oxygen Delivery Method Room Air 12/21/24 15:30 BMI result Body Mass Index 26.8 Tobacco/Smoking Status: Tobacco use Status Tobacco use date assessed 12/21/24 12/21/24 15:35 Patient Tobacco Use Status Former Tobacco user 12/21/24 15:35 e-Cigarette/Vaping Use Never Used 12/21/24 15:35 PHQ-9: PHQ-9 Score PHQ-9: Total score 0 12/21/24 16:01 Depression Screening Interpretation: Negative Thrive Assessment: Date of Thrive Assessment Date Thrive assessed 12/21/24 12/21/24 15:35 Currently or been in a relationship where the following occur: No concerns reported Const General: no acute distress and alert HENMT Ears: TM's normal bilaterally and EAC's normal Throat: Yes posterior oropharynx normal and Yes tonsils normal (no TP congestion noted) Neck Neck: Yes supple and No lymphadenopathy Thyroid: Thyroid normal Resp Auscultation: clear to auscultation bilaterally, no rales and no wheezes Cardio Rate: regular rate Rhythm: regular rhythm Heart sounds: no murmurs GI Palpation (GI): Soft to palpation and nontender Auscultation: normal bowel sounds General: Yes no CVA tenderness Back/Spine/Pelvis Back: no CVA tenderness Thoracic/Lumbar Spine: lumbar spinal tenderness Skin Rashes: no rashes Extrem General: Yes no clubbing, cyanosis or edema Left lower extremity: knee Details: no tenderness Results Reviewed Results Reviewed: Laboratory Tests 12/17/24 12/17/24 08:06 08:08 WBC 4.4 L Hgb 13.3 Hct 39.0 Plt Count 192 Sodium 143 Potassium 4.3 Creatinine 0.68 Estimated GFR > 60 Fasting Glucose 92 Calcium 9.2 AST 21 ALT 23 Triglycerides 66 Cholesterol 163 LDL Cholesterol, Calc 89 HDL Cholesterol 61 Vitamin B12 345 25-OH Vitamin D Total 52.0 TSH 3.51 Ur Specific [place] 1.010 Urine Protein Negative Urine Glucose (UA) Negative Urine Blood Negative Urine Nitrite Negative Ur Leukocyte Esterase Small (1+) H Coding Level of Care Code Est Pt Level 4 (92508) Diagnoses Pure hypercholesterolemia E78.00 Benign essential hypertension I10 Gastroesophageal reflux disease without esophagitis K21.9 Esophagitis presence: without esophagitis Age-related osteoporosis without current pathological fracture M81.0 Osteoporosis type: age-related Presence of current pathological fracture: without current pathological fracture Tinnitus of both ears H93.13 Laterality: bilateral Overweight (BMI 25.0-29.9) E66.3 Additional Codes PHQ-9 - 68167 - PHQ-9 Billing: Yes ([id number]) Assessment & Plan Assessment & Plan (1) Pure hypercholesterolemia: Code(s): E78.00 - Pure hypercholesterolemia, unspecified Category: Medical Plan: Results of her labs done a few days ago reviewed and discussed with patient - she is advised that her cholesterol levels have improved slightly from previous Reinforced low cholesterol diet Continue Atorvastatin 40 mg QD Will recheck her labs and fasting lipids in 4 months for follow up (2) Benign essential hypertension: Code(s): I10 - Essential (primary) hypertension Category: Medical Plan: Her BP appears well-controlled lately Reinforced low sodium diet - goal is systolic BP of at least 140 mm or less Continue Metoprolol ER 25 mg BID She was also on Lisinopril 2.5 mg QD previously but she stopped taking it because of frequent dizziness while she was on it - states that her dizziness improved since she came off her Lisinopril Patient is reminded to continue monitoring her blood pressure regularly (3) GERD (gastroesophageal reflux disease): Code(s): K21.9 - Gastro-esophageal reflux disease without esophagitis Category: Medical Qualifiers: Esophagitis presence: without esophagitis Qualified Code(s): K21.9 - Gastro-esophageal reflux disease without esophagitis Plan: Dietary restrictions reinforced Continue Omeprazole 20 mg QD; she was started additionally on Famotidine 40 mh Q HS PRN by November Merino EGD done in 2015 revealed findings of mild chronic gastritis; H. pylori was negative Follow up with GI as scheduled (4) Osteoporosis: Comment: started again on Alendronate in April 2023 Code(s): M81.0 - Age-related osteoporosis without current pathological fracture Category: Medical Qualifiers: Osteoporosis type: age-related Presence of current pathological fracture: without current pathological fracture Qualified Code(s): M81.0 - Age-related osteoporosis without current pathological fracture Plan: Repeat BMD done on 02/11/2024 revealed (+) severe osteoporosis based on the lowest T-score value of -2.6 in the femoral neck and history of fractures applying World Health Organization criteria Her BMD did show a slight improvement from her previous BMD in 2021 at the [facility] but is mostly unchanged in the left femur She has been prescribed Fosamax by Dr. Hernandez in the past but she did not want to take the Rx and has been taking OTC Calcium and Vitamin D daily instead but she was started back on Alendronate (Fosamax) by Dr. Bello in April 2023 Follow up with endocrinology (Dr. Bello) as scheduled (5) Tinnitus: Code(s): H93.19 - Tinnitus, unspecified ear Category: Medical Qualifiers: Laterality: bilateral Qualified Code(s): H93.13 - Tinnitus, bilateral Plan: Patient feels that this is more prominent in the right ear and has been bothering her more lately and keeping her up at night Have advised patient that her tinnitus is most likely due to hearing loss and unfortunately does not have any effective treatment options other than hearing augmentation Follow up with ENT (Dr. Anderson) as scheduled (6) Overweight (BMI 25.0-29.9): Code(s): E66.3 - Overweight Category: Medical Plan: Reinforced diet/exercise as tolerated/lose weight Plan Follow up in 4 months Orders: Orders Comprehensive Metaline. Panel Fast 4 Months E78.00 - Pure hypercholesterolemia, unspecified Lipid Panel 4 Months E78.00 - Pure hypercholesterolemia, unspecified TSH reflex Free T4 4 Months E78.00 - Pure hypercholesterolemia, unspecified UA CC w/rflx Micro + Cult 4 Months R30.0 - Dysuria Complete Blood Count Auto Diff 4 Months D64.9 - Anemia, unspecified Vitamin D 25-OH Total 4 Months E55.9 - Vitamin D deficiency, unspecified Vitamin B12 and Folate 4 Months E53.8 - Deficiency of other specified B group vitamins
--- OUTSIDE RECORDS SUMMARY | 2024-12-21 16:21 | XMS_ITS | Continuity of Care Document ---
Author Organization [facility] Address [address] [place] [address] [address] [place] [address] Phone Care Team Providers Care Quality Head Name Role Phone Fredrick JONES FACS RVT [...] Min Trial - Telemedicine [facility], [address] [place] [address] [address], [place], [id number], [place] tel:[phone] CVR [facility] - [place] Venous insufficiency (chronic) (peripheral) 3 Fredrick JONES FACS CASSIUS Erazo. [address] [facility], [address], [place], [address], [place]. tel:[phone] Referring Provider: Tristian Galvan MD, [address] [place] [address] Dr [address], [place], [address]. tel:[phone] Office/Outpt E&M Established 15 Mins [facility], [address] [place] [address] Dr [place], [id number], tel:[phone] CVR - [place] - [place] Venous insufficiency (chronic) (peripheral) 3 Fredrick Erazo. [address] [place] [address], [facility] [place], [address], [place]. tel:[phone] Referring Provider: Tristian Galvan MD, [address] [facility] [address] [facility] [facility], [place], [address]. tel:[phone] [facility], [address] [place] [address] Dr [place], [id number], [place] tel:[phone] [facility] - [place] - [place] Venous insufficiency (chronic) (peripheral) 3 Fredrick Erazo. [address] [place] [address], [place], [address], [place]. tel:[phone] Referring Provider: Tristian Galvan MD, [address] [facility] [address] [facility] [facility], [place], [address]. tel:[phone] Office/Oupt E&M New Pt 30 Mins [facility], [address] [place] [address] Dr [place]man [address], [id number], [place] tel:[phone] CVR - [place] - [place] Venous insufficiency (chronic) (peripheral)Cr amp and spasmEssential (primary) hypertension 3 Fredrick Erazo. [address] [place] [address], [place] [address], [place], [address], [place]. tel:[phone] Referring Provider: Tristian Galvan MD, [address] [facility] [address], [place], [address]. tel:[phone] Family History Family Member Type Diagnosis Age At Onset No Information Payers Payer name Insurance type Covered alliance party ID Authorfranco aldana(s) [place] [id number] Social History Type Description Quantity Date Captured [...]
--- OUTSIDE RECORDS SUMMARY | 2024-12-21 16:21 | XMS_ITS | Clinical Summary ---
Author Organization [facility] Address [address] [address] Phone Care Team Providers Care Travel Service Consultant Name Role Phone Tristian Galvan MD Primary Care Provider [phone] Allergies No known active allergies Medications Medication [...] Medical Devices Not on file Care Teams Travel Service Consultant Relationship Specialty Start Date End Date Tristian Galvan MD [address] [place] [address] [address] [facility] [place] [address] PCP - General 12/15/23 Additional Source Comments The information contained in this document represents components of the legal health record. It is not the complete legal health record.[facility]
== END 2024-12-21 16:10 | disposition home or self-care (01) ==
LOC: HO.HMCH 15:29
PROVIDERS: PCP Internal Medicine; Visit Provider Internal Medicine
DX: E78.00 Pure hypercholesterolemia, unspecified (principal); I10 Essential (primary) hypertension; K21.9 Gastro-esophageal reflux disease without esophagitis; M81.0 Age-related osteoporosis without current pathological fracture; H93.13 Tinnitus, bilateral; E66.3 Overweight

== ENCOUNTER → 2024-12-21 15:29 | Outpatient (BNVA) | payer MEDICARE, SELFPAY | PROVIDERS: PCP Internal Medicine; Visit Provider Internal Medicine | DX: E78.00 Pure hypercholesterolemia, unspecified (principal); I10 Essential (primary) hypertension; K21.9 Gastro-esophageal reflux disease without esophagitis; M81.0 Age-related osteoporosis without current pathological fracture; H93.13 Tinnitus, bilateral; E66.3 Overweight; Z68.26 Body mass index [BMI] 26.0-26.9, adult; Z79.899 Other long term (current) drug therapy | CPT/HCPCS: 96127; 99212 ==

== ENCOUNTER 2024-12-22 12:51 | Outpatient (AMB) | payer MEDICARE, SELFPAY ==
[2024-12-22 12:57] VITALS: BP 120/64; PULSE 64; BMI 30.8
--- NOTE | 2024-12-22 12:57 | A.OFFVIS_ITS ---
Vital Signs 12/22/24 12:57 Height 5 ft 3 in Weight 174 lb 2.643 oz BMI 30.8 BP 120/64 Blood Pressure Location Lt brachial Position Sitting Pulse 64 Pulse Source Pulse Oximeter Intake Visit Reasons: 6 wk s/p holter/ echo HS Intake Note: 6 wk f/up-holter/echo Child Support Case Officer Required: No Accompanied by: Self / Same As Patient Allergies No Known Allergies Allergy (Verified 12/21/24 15:59) Medication List - Last Reconciled 12/22/24 by Nicholas Childs NP alendronate 70 mg PO QWEEK ascorbic acid (vitamin C) 500 mg PO .QD atorvastatin 40 mg PO BEDTIME 90 days cholecalciferol (vitamin D3) 25 mcg PO DAILY magnesium carbonate 250 mg PO .QD meclizine 25 mg PO TID PRN 30 days metoprolol succinate ER 25 mg PO BID 90 days multivitamin 1 tab PO DAILY omeprazole 20 mg PO BID HPI Comments Details: This is a 74-year-old female patient presenting for a follow-up visit. Patient with a history of hypertension and palpitations, and no known history of ischemic heart disease, coronary artery disease, or cardiomyopathy. Patient was previously evaluated in the office for ongoing palpitations. The patient recalls experiencing similar symptoms over 10 years ago, which had resolved with initiation of metoprolol. Today, she is here to review the results of her recent echocardiogram and Holter monitor studies. She reports feeling well overall and denies any current cardiac symptoms including exertional chest pain, shortness of breath, dizziness, orthopnea, fatigue, PND, leg edema, presyncope, or syncope. Patient notes that she recently started taking magnesium supplements and has noticed resolution of her palpitations since then. The patient affirms that she is compliant with all her prescribed medications otherwise. [facility] Medical History Patellar fracture Osteopenia Galloway's esophagus Overweight (BMI 25.0-29.9) Pure hypercholesterolemia Benign essential hypertension GERD (gastroesophageal reflux disease) Surgical History History of cataract extraction Hx of tonsillectomy Hx of hysterectomy Hx of hemorrhoidectomy History of bladder suspension procedure History of esophagogastroduodenoscopy (EGD) Hx of colonoscopy Family History Mother Angina pectoris Hearing loss Father Colon cancer, Onset Age: 91 Hearing loss Colon polyp Sister Brain tumor Paternal Grandfather Lung cancer Maternal Grandfather Myocardial infarction Maternal Grandmother Scarlet fever Other Substance abuse Social History Household Members: None Housing: Other 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 Are you a primary senior caregiver to a significant other at home: No Do you presently have visiting nurse or other home services: No Alcohol intake: former Patient Tobacco Use Status: Former Tobacco user e-Cigarette/Vaping Use: Never Used Second Hand Smoke Exposure: Yes service: No Current occupational status: retired Cognitive needs: No Hearing needs: No Vision needs: Yes (Glasses) Review of Systems Const Denies chills, Denies fatigue, Denies fever(s), Denies frequent falls, Denies weakness, Denies weight gain and Denies weight loss ENT Denies dizziness Card Denies chest pain, Denies leg edema, Denies lightheadedness, Denies palpitations, Denies dyspnea and Denies dyspnea on exertion Resp Denies cough, Denies dyspnea and Denies dyspnea on exertion GI Denies hematochezia Musc Denies abnormal gait, Denies muscle weakness, Denies numbness, Denies radiating pain into limb and Denies tingling Neuro Denies abnormal gait, Denies dizziness, Denies frequent falls, Denies numbness, Denies tingling and Denies weakness Endo Denies fatigue and Denies palpitations Physical Exam Vital Signs: Last Vital Signs Pulse 64 12/22/24 12:57 BP 120/64 12/22/24 12:57 BMI result Body Mass Index 30.8 Const General: cooperative, healthy appearing, comfortable and no acute distress Orientation/consciousness: patient oriented x3 HEENT Head: Yes normal to inspection Neck Neck: Yes normal visual inspection, Yes trachea midline and Yes supple Chest Chest palpation & inspection: normal inspection of the chest Resp Effort & Inspection: normal respiratory effort Auscultation: clear to auscultation bilaterally, no crackles, no rales, no rhonchi and no wheezes Cardio Jugular venous distension: no JVD Palpation: normal PMI Rate: regular rate Rhythm: regular rhythm Heart sounds: S1 normal heart sound present, S2 normal heart sound present, no click, no gallops, no murmurs and no rubs Peripheral pulses: Peripheral pulses 2+ throughout GI Inspection: Yes normal to inspection Palpation (GI): Soft to palpation Auscultation: normal bowel sounds Skin General skin exam: no rashes or lesions noted Neuro General: patient oriented x3 Extrem General: Yes normal to inspection, No no pedal edema and No calf tenderness Psych Appearance: grossly normal Mental Status: mental status grossly normal Speech and movement: Normal speech and movement present Assessment & Plan Assessment & Plan (1) Palpitations: Code(s): R00.2 - Palpitations Category: Medical (2) Primary hypertension: Code(s): I10 - Essential (primary) hypertension Category: Medical Plan 11/30/2024-Holter monitor showed baseline sinus rhythm with average heart rate of 73 beats per minute, supraventricular ectopy with a burden of 1%, and ventricular ectopy with a burden of 1.5% with rare couplets. 11/30/2024-echo study showed a normal LV systolic with ejection fraction between 60-65% with impaired relaxation filling pattern, and mildly dilated ascending a agustina at 3.7 cm. Patient had marked her symptoms of palpitations correlating with the ectopic beats, however, she now reports resolution of palpitations, possibly related to recent magnesium supplementation. At this time, continue with metoprolol therapy. No additional intervention indicated at this time. Patient's blood pressure is currently well controlled. Continue current regimen. Ideally, blood pressure goal less than 130/80. Advised to continue monitoring at home and keeping a log of it. In regards to her mildly dilated ascending aorta, we will repeat an echocardiogram in 2 years' time. Advised heart healthy diet, regular exercise, educated hydration, med compliance, and management of vascular risk factors. We will follow up with the patient in 1 year, sooner if needed. In the interim, patient will call the office with any concerns or change in symptoms. This note was generated using voice recognition software. While every effort has been made to ensure accuracy and proper instrument designer, there may be occasional errors that could affect the content or meaning of the described symptoms. Coding Level of Care Code Est Pt Level 4 (29362) Complex EM visit Add On G2211 Diagnoses Palpitations R00.2 Primary hypertension I10 Time Spent (min) 31 Comment Time spent in reviewing the chart, test results, assessment, counseling and documentation.
--- OUTSIDE RECORDS SUMMARY | 2024-12-22 13:56 | XMS_ITS | Continuity of Care Document ---
Author Organization [facility] Address [address] [place] [address] [address] [place] [address] Phone Care Team Providers Care Spinneret Person Name Role Phone Fredrick JONES FACS RVT [...] Min Trial - Telemedicine [facility], [address] [place] [address] [address], [place], [id number], [place] tel:[phone] CVR [facility] - [facility] Venous insufficiency (chronic) (peripheral) 3 Fredrick JONES FACS CASSIUS Erazo. [address] [facility], [address], [place], [address], [place]. tel:[phone] Referring Provider: Tristian Galvan MD, [address] [place] [address] Dr [address], [place], [address]. tel:[phone] Office/Outpt E&M Established 15 Mins [facility], [address] [place] [address] Dr Huffman [address], [id number], tel:[phone] CVR - [place] - [facility] Venous insufficiency (chronic) (peripheral) 3 Fredrick Erazo. [address] [place] [address], [facility] [place], [address], [place]. tel:[phone] Referring Provider: Tristian Galvan MD, [address] [facility] [address] Huffman [facility], [place], [address]. tel:[phone] [facility], [address] [place] [address] Dr Huffman [address], [id number], [place] tel:[phone] CVR - [place] [facility] Venous insufficiency (chronic) (peripheral) 3 Fredrick Erazo. [address] [place] [address], [place], [address], [place]. tel:[phone] Referring Provider: Tristian Galvan MD, [address] [facility] [address] Huffman [facility], [place], [address]. tel:[phone] Office/Oupt E&M New Pt 30 Mins [facility], [address] [place] [address] Dr Huffman [address], [id number], [place] tel:[phone] CVR - [place] - [facility] Venous insufficiency (chronic) (peripheral)Cr amp and spasmEssential (primary) hypertension 3 Fredrick Erazo. [address] [place] [address], [place] [address], [place], [address], [place]. tel:[phone] Referring Provider: Tristian Galvan MD, [address] [facility] [address], [place], [address]. tel:[phone] Family History Family Member Type Diagnosis Age At Onset No Information Payers Payer name Insurance type Covered green party ID Authorfranco aldana(s) BC[place] Medicare Advantage [id number] Social History Type Description Quantity Date Captured [...]
== END 2024-12-22 13:14 | disposition home or self-care (01) ==
LOC: HO.HCS 12:52
PROVIDERS: PCP Internal Medicine
DX: R00.2 Palpitations (principal); I10 Essential (primary) hypertension
CPT/HCPCS: 99214; G2211

== ENCOUNTER → 2024-12-22 12:51 | Outpatient (BNVA) | payer MEDICARE, SELFPAY | PROVIDERS: PCP Internal Medicine | DX: R00.2 Palpitations (principal); I10 Essential (primary) hypertension | CPT/HCPCS: 99212 ==

== ENCOUNTER 2025-04-20 10:02 | Outpatient (REF) | payer MEDICARE, SELFPAY ==
--- OUTSIDE RECORDS SUMMARY | 2022-12-09 06:15 | XMS_ITS | Continuity of Care Document ---
Author Organization [facility] Address [address] [place] [address] [address] [place] [address] Phone Care Team Providers Care Investment Analyst Name Role Phone Fredrick JONES FACS RVT Justin IVEY Unavailable Unavailable Allergies, Adverse Reactions, Alerts Substance Reaction Status Criticality No Known Allergies Active No Inform ation Medications Medication Instructions Dosage Effective Dates (start - stop) Status Comments pravastatin 10 mg tablet - A ctive metoprolol succinate ER 25 mg tablet,extended release 24 hr - Active Procedures Procedure Date Offic/outpt E&m Estab 5 Min Trial - Tele medicine Office/Outpt E&M Established 15 Mins Sep Duplex Scan-extrem Veins; Comp Office/Oupt E&M New Pt 30 Mins 23 Advance Directives Directive Yes / No Effective Date File Name No Information Encounters Encounter Description Practice Location Reason(s) For Visit Diagnoses Date Provider Providers Copied on Encounter Offic/outpt E&m Estab 5 Min Trial - Telemedicine [facility], [address] [place] [address] [address], [place], [id number], [place] tel:[phone] CVR [facility] [place] Venous insufficiency (chronic) (peripheral) 3 Fredrick JONES FACS CASSIUS Erazo. [address], [address], [place], [address], [place]. tel:[phone] Referring Provider: Tristian Galvan MD, [address] [place] [address] Dr [address], [place], [address]. tel:[phone] Office/Outpt E&M Established 15 Mins [facility], [address] [place] [address] Dr [address], [id number], tel:[phone] CV[facility] - [place] Venous insufficiency (chronic) (peripheral) 3 Fredrick Erazo. [address] [place] [address], [place], [address], [place]. tel:[phone] Referring Provider: Tristian Galvan MD, [address] [facility] [address] [facility], [place], [address]. tel:[phone] [facility], [address] [place] [address] Dr [address], [id number], [place] tel:[phone] [facility] - [place] Venous insufficiency (chronic) (peripheral) 3 Fredrick Erazo. [address] [place] [address], [place], [address], [place]. tel:[phone] Referring Provider: Tristian Galvan MD, [address] [facility] [address] [facility], [place], [address]. tel:[phone] Office/Oupt E&M New Pt 30 Mins [facility], [address] [place] [address] Dr [address], [id number], [place] tel:[phone] CV[facility] - [place] - [place] Venous insufficiency (chronic) (peripheral)Cr amp and spasmEssential (primary) hypertension 3 Fredrick Erazo. [address] [place] [address], [place] [address], [place], [address], [place]. tel:[phone] Referring Provider: Tristian Galvan MD, [address] [facility] [address], [place], [address]. tel:[phone] Family History Family Member Type Diagnosis Age At Onset No Information Payers Payer name Insurance type Covered democrat ID Authorfranco aldana(s) [place] [id number] Social History Type Description Quantity Date Captured Comments Alcohol Use Details No Caffeine Use Details Unknown Tobacco Use Status No Information Smoking Status Smoker, current stat us unknown Non-Smoking Tobacco Use Details : No Details Available : No Details Available Sex Female Chief Complaint And Reason For Visit No Information Reason For Referral Reason For Referral No Information Plan Of Treatment Date Type Action Status Goal Tobacco cessation counseling completed Goal Tobacco cessation counseling completed Goal Diet education completed Referral Ordered: Weight management: Referral to physician timeframe: 3 Months (related to Body mass index (BMI) 27.0-27.9, adult) ordered History Of Present Illness Encounter Date Complaint History Of Prese nt Illness No Information Functional Status Date Functional Assessmen t No Information Instructions Date Instruction Additional Infor mation Compression stocking usage as conservative measure Related to Venous insufficiency (chronic) (peripheral) Patient education booklet given Related to Venous insufficiency (chronic) (peripheral) Diet education Related to Body mass index (BMI) 27.0-27.9, adult Giving Encouragement to exercise Related to Body mass index (BMI) 27.0-27.9, adult Lifestyle education Related to B maria r mass index (BMI) 27.0-27.9, adult Assessments Type Assessment Date assessment Venous insufficiency (chronic) ( peripheral) Patient Care Teams Name Effective Dates (start - stop) Status Members No Information
[2025-04-20 10:16] LABS: MANUAL DIFF FLAG NO
[2025-04-20 10:29] LABS: Hematocrit 39.8 % (37.0-47.0); Hemoglobin 13.5 g/dl (12.0-16.0); Imm Gran Abs Auto 0.01 X10*3/uL (0.00-0.03); Imm Gran Pct Auto 0.2 % (0.0-0.4); Lymphocytes Absolute Auto 1.3 X10*3/uL (1.2-4.9); Mean Corpuscular HGB Conc 33.9 g/dl (31.0-35.0); Mean Corpuscular Hemoglobin 31.6 pg (27.0-33.0); Mean Corpuscular Volume 93.2 fL (80.0-98.0); NRBC Abs Auto 0.000 X10*3/uL (0.0-0.012); NRBC Pct Auto 0.0 /100WBC (0.0-0.2); Platelet Count 197 X10*3/uL (160-400); Red Blood Count 4.27 X10*6/uL (4.20-5.50); White Blood Count 4.6 X10*3/uL (4.8-10.8)
[2025-04-20 11:11] LABS: Alanine Aminotransferase 16 U/L (0-31); Albumin Level 4.4 g/dL (3.5-5.0); Alkaline Phosphatase 58 U/L (39-117); Anion Gap 11 (12-20); Aspartate Amino Transferase 22 U/L (5-31); Blood Urea Nitrogen 12 mg/dL (9-16); Calcium 9.4 mg/dL (8.4-10.2); Carbon Dioxide 28 mmol/L (22-29); Chloride 108 mmol/L (96-108); Cholesterol 239 mg/dL (<200); Estimated Glomerular Filt Rate > 60; HDL Cholesterol 55 mg/dL (>40); Potassium 4.5 mmol/L (3.3-5.1); Sodium 142 mmol/L (135-145); Total Protein 6.7 g/dL (6.5-8.0); Triglycerides 93 mg/dL (<150)
--- OUTSIDE RECORDS SUMMARY | 2025-04-20 11:12 | XMS_ITS | Clinical Summary ---
Author Organization [facility] Address [address] [address] Phone Care Team Providers Care Thermodynamics Engineer Name Role Phone Tristian Galvan MD Primary Care Provider [phone] Allergies No known active allergies Medications alendronate (FOSAMAX) 70 MG tablet TAKE 1 TABLET BY MOUTH ONCE WEEKLY 4 Active atorvastatin (LIPITOR) 40 MG tablet Take 40 mg by mouth nightly at bedtime. 4 Active famotidine (PEPCID) 40 MG tablet take 1 tablet by mouth everyday at bedtime 4 Active lisinopril (PRINIVIL,ZESTR IL) 2.5 MG tablet Take 1 tablet by mouth every morning. 4 Active metoprolol succinate (TOPROL-XL) 25 MG 24 hr tablet Take 1 tablet by mouth 2 (two) times a day. 4 Active omeprazole (PRILOSEC) 20 MG capsule Take 1 capsule by mouth every morning. 4 Active naproxen (NAPROSYN) 500 MG tablet Take 1 tablet (500 mg total) by mouth 2 (two) times a day for 3 days. Then twice daily as needed for pain, inflammation 20 tablet 4 Active cyclobenzaprine (FLEXERIL) 10 MG tablet Take 1 tablet (10 mg total) by mouth 3 (three) times a day as needed (muscle). 12 tablet 4 Active Active Problems No known active problems [...] with a working camera? Not on file Comments Unknown Sex and Gender Information Value Date Recorded Sex Assigned at Not on file Legal Sex Female 4:22 PM EDT Gender Identity Not on file Sexual Orientation Not on file Last Filed Vital Signs Vital Sign Reading Time Taken Comments Blood Pressure 149/76 12/15/2023 4:40 PM EDT Pulse 65 12/15/2023 4:40 PM EDT Temperature 37.1 C (98.8 F) 12/15/2023 4:40 PM EDT Respiratory Rate 16 12/15/2023 4:40 PM EDT Oxygen Saturation 96% 12/15/2023 4:40 PM EDT Inhaled Oxygen Concentration - - Weight - - Height - - Body Mass Index - - Plan of Treatment Health Maintenance Due Date Last Done Comments CREATININE LEVEL 1949 LIPID PANEL 1949 POTASSIUM LEVEL 1949 DEPRESSION SCREENING 1961 SMOKING Hx and SMOKELESS TOBACCO SCREENING 1962 HEPATITIS C SCREENING 11/20/1967 COLOGUARD 1994 COLONOSCOPY 1994 COLORECTAL CANCER SCREENING 1994 FIT TEST 1994 FOBT 1994 SIGMOIDOSCOPY 1994 VIRTUAL COLONOSCOPY 1994 ZOSTER VACCINES (1 of 2) 11/20/1999 OSTEOPOROSIS SCREENING INITI AL (ONE-TIME) 2014 COVID-19 VACCINE ( - 2023-2 5 season) 2024 11/22/2020, 11/01/2020 RSV VACCINE (1 [...] age to complete this topic MENINGOCOCCAL VACCINES (B) Aged Out N o longer eligible based on patient's age to complete this topic Medical Devices Not on file [place] [address] [place] [address] MEDICARE PPO BLUE [place] [address] [place] [address] MEDICARE PPO BLUE [place] [place] [address] MEDICARE PPO BLUE [place] [address] [place] [address] MEDICARE PPO BLUE REPLACEMENT Care Teams Thermodynamics Engineer Relationship Specialty Start Date End Date Tristian Galvan MD [address] [place] [address] Dr [facility] [address] PCP - General 12/15/23 Additional Source Comments The information contained in this document represents components of the legal health record. It is not the complete legal health record.[facility]
[2025-04-20 11:27] LABS: Appearance Urine Clear; Glucose Urine UA Negative (Negative); PH 6.5 (5.0-9.0); Specific Gravity - Urine 1.010 (1.005-1.025); UMIC TRIGGER UACC YES
[2025-04-20 11:34] LABS: Folate 10.0 ng/mL (> or = 4.0); Vitamin B12 264 pg/mL (200-900)
[2025-04-20 11:37] LABS: UACC Culture Trigger YES
== END 2025-04-20 10:03 | disposition home or self-care (01) ==
LOC: HO.LAB 10:02
PROVIDERS: PCP Internal Medicine; Visit Provider Internal Medicine
DX: E78.00 Pure hypercholesterolemia, unspecified (principal); E55.9 Vitamin D deficiency, unspecified; D64.9 Anemia, unspecified; E53.8 Deficiency of other specified B group vitamins; R30.0 Dysuria
CPT/HCPCS: 36415; 80053; 80061; 81001; 81003; 82306; 82607; 82746; 84443; 85025; 87086

== ENCOUNTER 2025-04-24 14:07 | Outpatient (AMB) | payer MEDICARE, SELFPAY ==
[2025-04-24 14:09] VITALS: BP 130/80; PULSE 64; O2SAT 98; BMI 26.7
--- NOTE | 2025-04-24 14:09 | A.OFFPC_ITS ---
Vital Signs 04/24/25 14:09 Height 5 ft 3 in Weight 151 lb BMI 26.7 BP 130/80 Blood Pressure Location Lt brachial Position Sitting Pulse 64 Pulse Source Pulse Oximeter Pulse Oximetry (%) 98 Oxygen Delivery Method Room Air Intake Visit Reasons: hyperlipidemia, HTN, GERD Trimming Machine Operator Required: No Accompanied by: Self / Same As Patient Allergies No Known Allergies Allergy (Verified 04/24/25 14:51) Medication List - Last Reconciled 04/24/25 by Tristian Galvan MD alendronate 70 mg PO QWEEK ascorbic acid (vitamin C) 500 mg PO .QD atorvastatin 40 mg PO BEDTIME 90 days cholecalciferol (vitamin D3) 25 mcg PO DAILY magnesium carbonate 250 mg PO .QD meclizine 25 mg PO TID PRN 30 days metoprolol succinate ER 25 mg PO BID 90 days multivitamin 1 tab PO DAILY omeprazole 20 mg PO BID Tobacco use date assessed: 04/24/25 Last assessed Fall Risk: 04/24/25 Dental Screening Dental Screen Date: 04/24/25 HPI hyperlipidemia, HTN, GERD HPI Details Patient comes in today for her follow up visit States that she feels okay She denies any headaches or dizziness Denies any chest pains, no increased shortness of breath No nausea/vomiting, no abdominal pain No change in bowel habits noted She had her follow up labs done a few days ago - to discuss her results [facility] Medical History Patellar fracture Osteopenia Galloawy's esophagus Overweight (BMI 25.0-29.9) Pure hypercholesterolemia Benign essential hypertension GERD (gastroesophageal reflux disease) Surgical History History of cataract extraction Hx of tonsillectomy Hx of hysterectomy Hx of hemorrhoidectomy History of bladder suspension procedure History of esophagogastroduodenoscopy (EGD) Hx of colonoscopy Family History Mother Angina pectoris Hearing loss Father Colon cancer, Onset Age: 91 Hearing loss Colon polyp Sister Brain tumor Paternal Grandfather Lung cancer Maternal Grandfather Myocardial infarction Maternal Grandmother Scarlet fever Other Substance abuse Social History (Reviewed 04/24/25 @ 14:13 by SAI Yarbrough Household Members: None Housing: Other 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 Are you a primary childcare center administrator to a significant other at home: No Do you presently have visiting nurse or other home services: No Alcohol intake: former Patient Tobacco Use Status: Former Tobacco user e-Cigarette/Vaping Use: Never Used Second Hand Smoke Exposure: Yes service: No Current occupational status: retired Cognitive needs: No Hearing needs: No Vision needs: Yes (Glasses) Questionnaire PHQ-9 Over the last 2 weeks, how often have you been bothered by any of the following problems? 1. Little interest or pleasure in doing things: not at all 2. Feeling down, depressed, or hopeless: not at all 3. Trouble falling or staying asleep, or sleeping too much: not at all 4. Feeling tired or having little energy: not at all 5. Poor appetite or overeating: not at all 6. Feeling bad about yourself - or that you are a failure or have let yourself or your family down: not at all 7. Trouble concentrating on things, such as reading the newspaper or watching television: not at all 8. Moving or speaking so slowly that other people could have noticed. Or the opposite - being so fidgety or restless that you have been moving around a lot more than usual: not at all 9. Thoughts that you would be better off or of hurting yourself in some way: not at all Total score: 0 Depression Screening Interpretation: Negative Depression Screening Done: Yes 41565 - PHQ-9 Billing: Yes Source: Developed by Drs. Santos Prieto, Mamie Jason, Thomas Jacobson and colleagues, with an educational florian from [employer]. Thrive Questionnaire Date Thrive assessed: 04/24/25 I am a: Patient What is your living situation today?: I have a steady place to live Within the past 12 months, did the food you bought not last and you didn't have the money to get more?: Often true Within the past 12 months, did you worry whether your food would run out before you got money to buy more?: Never true Do you have trouble paying for medicines?: No Do you have trouble getting transportation to medical appointments?: No Do you have trouble paying your heating and electricity bill?: No Do you have trouble taking care of your child, family member or friend?: No Do you have trouble with day-to-day activities such as bathing, preparing meals, shopping, managing finances, etc.?: No Are you currently unemployed and looking for a job?: No Are you interested in more education?: No Please select the resources that you would like help with: None Currently or been in a relationship where the following occur: No concerns reported THRIVE Score: 1 AUDIT C Alcohol Use Questionnaire (AUDIT-C) 1. How often do you have a drink containing alcohol?: Never 3. How often do you have six or more drinks on one occasion?: Never Total Score: 0 Score Reviewed/Action Taken: Yes GAIL-7 AMB Questionnaire GAIL-7 Date GAIL - 7 assessed: 04/24/25 Feeling nervous, anxious, or on edge: 0 = Not at all Not being able to stop or control worryin = Not at all Worrying too much about different things: 0 = Not at all Trouble relaxin = Not at all Being so restless that it is hard to sit still: 0 = Not at all Becoming easily annoyed or irritable: 0 = Not at all Feeling afraid as if something awful might happen: 0 = Not at all Total GAIL-7 score (0-4 normal; 5-9 mild; 10-14 moderate; 15-21 severe): 0 Source: Developed by Drs. Santos Prieto, Mamie Jason, Thomas Jacobson and colleagues, with an educational florian from [employer]. Review of Systems Const Denies chills, Denies fatigue, Denies fever(s) and Denies headache(s) ENT Denies dysphagia, Denies dizziness, Denies otalgia, Denies headache(s), Reports hearing loss (in right ear), Denies neck pain, Denies odynophagia, Reports tinnitus (more prominent in the right ear) and Denies sore throat Card Denies chest pain and Denies dyspnea Resp Denies chest congestion, Denies cough and Denies dyspnea GI Denies abdominal pain, Denies constipation, Denies dysphagia, Denies diarrhea, Denies nausea, Denies odynophagia and Denies vomiting Denies difficulty voiding, Denies nocturia, Denies dysuria and Denies urinary urgency Musc Reports back pain (over the lower back (on and off)), Denies arthralgias and Denies neck pain Skin/Breast Denies rash Neuro Denies dizziness and Denies headache(s) Psych Reports anxiety Endo Denies fatigue Physical exam (Primary Care) Vital Signs: Last Vital Signs Pulse 64 04/24/25 14:09 BP 130/80 04/24/25 14:09 Pulse Ox 98 04/24/25 14:09 Oxygen Delivery Method Room Air 04/24/25 14:09 BMI result Body Mass Index 26.7 Tobacco/Smoking Status: Tobacco use Status Tobacco use date assessed 04/24/25 04/24/25 14:13 Patient Tobacco Use Status Former Tobacco user 04/24/25 14:13 e-Cigarette/Vaping Use Never Used 04/24/25 14:13 PHQ-9: PHQ-9 Score PHQ-9: Total score 0 04/24/25 14:13 Depression Screening Interpretation: Negative Thrive Assessment: Date of Thrive Assessment Date Thrive assessed 04/24/25 04/24/25 14:13 Currently or been in a relationship where the following occur: No concerns reported Const General: no acute distress and alert HENMT Ears: TM's normal bilaterally and EAC's normal Throat: Yes posterior oropharynx normal and Yes tonsils normal (no TP congestion noted) Neck Neck: Yes supple and No lymphadenopathy Thyroid: Thyroid normal Resp Auscultation: clear to auscultation bilaterally, no rales and no wheezes Cardio Rate: regular rate Rhythm: regular rhythm Heart sounds: no murmurs GI Palpation (GI): Soft to palpation and nontender Auscultation: normal bowel sounds General: Yes no CVA tenderness Back/Spine/Pelvis Back: no CVA tenderness Thoracic/Lumbar Spine: lumbar spinal tenderness Skin Rashes: no rashes Extrem General: Yes no clubbing, cyanosis or edema Left lower extremity: knee Details: no tenderness Results Reviewed Results Reviewed: Laboratory Tests 04/20/25 04/20/25 10:10 10:14 WBC 4.6 L Hgb 13.5 Hct 39.8 Plt Count 197 Sodium 142 Potassium 4.5 Creatinine 0.77 Estimated GFR > 60 Fasting Glucose 94 Calcium 9.4 AST 22 ALT 16 Triglycerides 93 Cholesterol 239 H LDL Cholesterol, Calc 166 H HDL Cholesterol 55 Vitamin B12 264 25-OH Vitamin D Total 48.7 TSH 2.69 Ur Specific [place] 1.010 Urine Protein Negative Urine Glucose (UA) Negative Urine Blood Negative Urine Nitrite Negative Ur Leukocyte Esterase Small (1+) H Coding Level of Care Code Est Pt Level 4 (25922) Diagnoses Pure hypercholesterolemia E78.00 Benign essential hypertension I10 Gastroesophageal reflux disease without esophagitis K21.9 Esophagitis presence: without esophagitis Age-related osteoporosis without current pathological fracture M81.0 Osteoporosis type: age-related Presence of current pathological fracture: without current pathological fracture Tinnitus of both ears H93.13 Laterality: bilateral Overweight (BMI 25.0-29.9) E66.3 Additional Codes PHQ-9 - 60700 - PHQ-9 Billing: Yes ([id number]) Assessment & Plan Assessment & Plan (1) Pure hypercholesterolemia: Code(s): E78.00 - Pure hypercholesterolemia, unspecified Category: Medical Plan: Results of her labs done a few days ago reviewed and discussed with patient - have cautioned patient that her cholesterol levels, especially her total and LDL cholesterol, have increased significantly (practically doubled) from previous Patient admits that she stopped taking her Atorvastatin about 3 to 4 months ago as she felt that the medication was making her feel nauseous the next morning and notes that her symptoms improved when she stopped taking her Atorvastatin Reinforced low cholesterol diet Patient states that she is willing to go back on Atoravastatin at this time Have advised her that is she starts experiencing the same symptoms of frequent nausea again when she resumes her Rx, then she can try switching it over to AM dosing and if even that does not help resolve her symptoms, then she should reach out to us for further instructions/recommendations Will have patient recheck her labs and fasting lipids again in 4 months for follow up (2) Benign essential hypertension: Code(s): I10 - Essential (primary) hypertension Category: Medical Plan: Her BP again appears well-controlled lately Reinforced low sodium diet - goal is systolic BP of at least 140 mm or less Continue Metoprolol ER 25 mg BID She was also on Lisinopril 2.5 mg QD previously but she stopped taking it because of frequent dizziness while she was on it - states that her dizziness improved since she came off her Lisinopril Patient is reminded to continue monitoring her blood pressure regularly (3) GERD (gastroesophageal reflux disease): Code(s): K21.9 - Gastro-esophageal reflux disease without esophagitis Category: Medical Qualifiers: Esophagitis presence: without esophagitis Qualified Code(s): K21.9 - Gastro-esophageal reflux disease without esophagitis Plan: Dietary restrictions reinforced EGD done in 2015 revealed findings of mild chronic gastritis; H. pylori was negative Continue Omeprazole 20 mg QD; she was started additionally on Famotidine 40 mg Q HS PRN by November Angelique Follow up with GI as scheduled (4) Osteoporosis: Comment: started again on Alendronate in April 2023 Code(s): M81.0 - Age-related osteoporosis without current pathological fracture Category: Medical Qualifiers: Osteoporosis type: age-related Presence of current pathological fracture: without current pathological fracture Qualified Code(s): M81.0 - Age- related osteoporosis without current pathological fracture Plan: Repeat BMD done on 02/11/2024 revealed (+) severe osteoporosis based on the lowest T-score value of -2.6 in the femoral neck and history of fractures applying World Health Organization criteria Her BMD did show a slight improvement from her previous BMD in 2021 at the [facility] but is mostly unchanged in the left femur She has been prescribed Fosamax by Dr. Hernandez in the past but she did not want to take the Rx and has been taking OTC Calcium and Vitamin D daily instead; she was started back on Alendronate (Fosamax) by Dr. Bello in April 2023 and is currently still on it Follow up with endocrinology (Dr. Bello) as scheduled (5) Tinnitus: Code(s): H93.19 - Tinnitus, unspecified ear Category: Medical Qualifiers: Laterality: bilateral Qualified Code(s): H93.13 - Tinnitus, bilateral Plan: Patient feels that this is more prominent in the right ear and has been bothering her more lately and keeping her up at night Have advised patient that her tinnitus is most likely due to hearing loss and unfortunately does not have any effective treatment options other than hearing augmentation Follow up with ENT (Dr. Anderson) as scheduled (6) Overweight (BMI 25.0-29.9): Code(s): E66.3 - Overweight Category: Medical Plan: Reinforced diet/exercise as tolerated/lose weight Plan Follow up in 4 months Orders: Orders Complete Blood Count Auto Diff 4 Months D64.9 - Anemia, unspecified Comprehensive [place]. Panel Fast 4 Months E78.00 - Pure hypercholesterolemia, unspecified Lipid Panel 4 Months E78.00 - Pure hypercholesterolemia, unspecified TSH reflex Free T4 4 Months E78.00 - Pure hypercholesterolemia, unspecified UA CC w/rflx Micro + Cult 4 Months R30.0 - Dysuria
--- OUTSIDE RECORDS SUMMARY | 2025-04-24 16:29 | XMS_ITS | Clinical Summary ---
Author Organization [facility] Address [address] [address] Phone Care Team Providers Care Patternmaker Grader Name Role Phone Tristian Galvan MD Primary Care Provider [phone] Allergies No known active allergies Medications alendronate [...] 2) 11/20/1999 OSTEOPOROSIS SCREENING INITIAL (ONE-TIME) 2014 RSV VACCINE (1 - 1-dose 75+ series) 2024 INFLUENZA VACCINE (#1) 2025 2, 05/21/2021, 04/25/2020, Additional history exists COVID-19 VACCINE ( - season) 2025 11/22/2020, 11/01/2020 Adult Td,Tdap Booster 03/27/2032 03/27/2022 PNEUMOCOCCAL VACCINES [...] topic Medical Devices Not on [place] [address] [place] [address] MEDICARE PPO BLUE REPLACEMENT Care Teams Patternmaker Grader Relationship Specialty Start Date End Date Tristian Galvan MD [address] [place] [address] [place] [address] PCP - General 12/15/23 Additional Source Comments The information contained in this document represents components of the legal health record. It is not the complete legal health record.[facility]
== END 2025-04-24 15:03 | disposition home or self-care (01) ==
LOC: HO.HMCH 14:08
PROVIDERS: PCP Internal Medicine; Visit Provider Internal Medicine
DX: E78.00 Pure hypercholesterolemia, unspecified (principal); I10 Essential (primary) hypertension; K21.9 Gastro-esophageal reflux disease without esophagitis; M81.0 Age-related osteoporosis without current pathological fracture; H93.13 Tinnitus, bilateral; E66.3 Overweight

== ENCOUNTER → 2025-04-24 14:07 | Outpatient (BNVA) | payer MEDICARE, SELFPAY | PROVIDERS: PCP Internal Medicine; Visit Provider Internal Medicine | DX: I10 Essential (primary) hypertension (principal); K21.9 Gastro-esophageal reflux disease without esophagitis; E78.5 Hyperlipidemia, unspecified; E78.00 Pure hypercholesterolemia, unspecified; M81.0 Age-related osteoporosis without current pathological fracture; H93.13 Tinnitus, bilateral; E66.3 Overweight; Z68.26 Body mass index [BMI] 26.0-26.9, adult | CPT/HCPCS: 96127; 99212 ==

== ENCOUNTER 2025-05-18 08:41 | Outpatient (REF) | payer MEDICARE, SELFPAY ==
--- OUTSIDE RECORDS SUMMARY | 2025-05-18 09:05 | XMS_ITS | Clinical Summary ---
Author Organization [facility] Address [address] [address] Phone Care Team Providers Care Chief Dietitian Name Role Phone Tristian Galvan MD Primary Care Provider [phone] Allergies No known active allergies Medications alendronate [...] topic Medical Devices Not on file [place] [address] MEDICARE PPO BLUE REPLACEMENT Care Teams Chief Dietitian Relationship Specialty Start Date End Date Tristian Galvan MD [address] [place] [address] [place] [address] PCP - General 12/15/23 Additional Source Comments The information contained in this document represents components of the legal health record. It is not the complete legal health record.[facility]
== END 2025-05-18 08:42 | disposition home or self-care (01) ==
LOC: HO.MAMMO 08:41
PROVIDERS: PCP Internal Medicine; Visit Provider Internal Medicine
DX: Z12.31 Encounter for screening mammogram for malignant neoplasm of breast (principal)
CPT/HCPCS: 77063; 77067

== ENCOUNTER → 2025-05-18 08:45 | Outpatient (BNV) | payer MEDICARE, SELFPAY | PROVIDERS: PCP Internal Medicine; Visit Provider Internal Medicine | DX: Z12.31 Encounter for screening mammogram for malignant neoplasm of breast (principal) | CPT/HCPCS: 77063; 77067 ==

== ENCOUNTER 2025-06-06 11:55 | Outpatient (AMB) | payer MEDICARE, SELFPAY ==
[2025-06-06 11:56] VITALS: BP 126/64; PULSE 78; TEMP 36.6; O2SAT 97; BMI 27.6
--- NOTE | 2025-06-06 11:56 | AM.OFFWIN_ITS ---
Intake Vital Signs 06/06/25 11:56 Height 5 ft 3 in Weight 156 lb BMI 27.6 BP 126/64 Blood Pressure Location Lt brachial Position Sitting Pulse 78 Pulse Source Pulse Oximeter Temp 97.8 F Temp Source Oral Pulse Oximetry (%) 97 Oxygen Delivery Method Room Air Intake Visit Reasons: EP - Right Shoulder Discomfort Intake Note: Patient presents with right shoulder/upper arm pain that radiates all the way down her right arm when she moves it xfew months. Patient Tobacco Use Status: Former Tobacco user Allergies No Known Allergies Allergy (Verified 06/06/25 11:59) Do you need a note to return to daycare/school/sports/work: No HPI HPI Comments History of Present Illness Details History of Present Illness - The patient is a 74-year-old female pr esenting with worsening right shoulder pain. - The patient reports that the pain in h er right shoulder has been present for several months and has progressively worsened over the last few weeks. - The pain is exacerbated by lifting the arm above the head and is associated with tenderness over the biceps. - Initially, the pain was mild but has b ecome more severe, particularly in the last couple of weeks. - The patient has been using Aleve inter mittently, which provides temporary relief. She has not used a sling or rested the arm adequately. - The patient has a history of repetitiv e use of the arm due to activities such as spackling, washing youssef, and doing floors for her grandson. - Patient is right hand dominant Review of Systems - Musculoskeletal: Reports pain in the r ight shoulder, particularly when lifting the arm above the head. Denies pain in the left shoulder. All systems reviewed and are unremarkable except as noted in HPI Physical Exam General: Cooperative, healthy appearing, comfortable, no acute distress and well developed Orientation: Patient oriented x3 Limitations: Limitations in lifting arm over the head due to pain Head: Normal to inspection Ears: Hearing grossly normal bilaterally Nose: Normal External nose present Face and sinus: Normal facial exam Eyes: Appearance normal, both eyes and all related structures Neck: Normal visual inspection and Yes full ROM Respiratory: Normal respiratory effort and able to speak in complete sentences. Skin: No rashes or lesions noted Neuro: Patient oriented x3 Extremities: right shoulder unable to abduct, otherwise full ROM, negative empty can, + inversion and lift off. [facility] Medical History Patellar fracture Osteopenia Galloway's esophagus Overweight (BMI 25.0-29.9) Pure hypercholesterolemia Benign essential hypertension GERD (gastroesophageal reflux disease) Surgical History History of cataract extraction Hx of tonsillectomy Hx of hysterectomy Hx of hemorrhoidectomy History of bladder suspension procedure History of esophagogastroduodenoscopy (EGD) Hx of colonoscopy Family History Mother Angina pectoris Hearing loss Father Colon cancer, Onset Age: 91 Hearing loss Colon polyp Sister Brain tumor Paternal Grandfather Lung cancer Maternal Grandfather Myocardial infarction Maternal Grandmother Scarlet fever Other Substance abuse Social History Household Members: None Housing: Other 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 Are you a primary chiropractic care to a significant other at home: No Do you presently have visiting nurse or other home services: No Alcohol intake: former Patient Tobacco Use Status: Former Tobacco user e-Cigarette/Vaping Use: Never Used Second Hand Smoke Exposure: Yes service: No Current occupational status: retired Cognitive needs: No Hearing needs: No Vision needs: Yes (Glasses) Physical Exam Vital Signs: Last Vital Signs Temp 97.8 F 06/06/25 11:56 Pulse 78 06/06/25 11:56 BP 126/64 06/06/25 11:56 Pulse Ox 97 06/06/25 11:56 Oxygen Delivery Method Room Air 06/06/25 11:56 BMI result Body Mass Index 27.6 Assessment & Plan Assessment & Plan (1) Biceps tendonitis on right: Code(s): M75.21 - Bicipital tendinitis, right shoulder Plan: Plan Patient was informed and verbally consented to the use of an ambient scribe for clinic note documentation during this visit. Right Shoulder Tendinitis - Rest the arm and use a sling to alleviate symptoms, ensuring to remove the sling periodically and do twice daily ROM exercises to prevent frozen shoulder. MA educated pt on how to put sling on and take off, do not use when driving. - Apply ice to the affected area and continue using Aleve for pain management. - Initiate physical therapy if symptoms persist after a few weeks of rest. I have ordered it already, can cancel if not needed. - Avoid heavy lifting and strenuous activities with the affected arm for the next few weeks. Orders: Orders PT Evaluation and Treatment Today M75.21 - Bicipital tendinitis, right shoulder Coding Level of Care Code Est Pt Level 3 (74140) Diagnoses Biceps tendonitis on right M75.21
--- OUTSIDE RECORDS SUMMARY | 2025-06-06 15:21 | XMS_ITS | Clinical Summary ---
Author Organization [facility] Address [address] [address] Phone Care Team Providers Care Bottle Capper Name Role Phone Tristian Galvan MD Primary Care Provider [phone] Allergies No known active allergies Medications alendronate [...] topic Medical Devices Not on file [place] [address] [place] [address] MEDICARE PPO BLUE REPLACEMENT Care Teams Bottle Capper Relationship Specialty Start Date End Date Tristian Galvan MD [address] [place] [address] [place] [address] PCP - General 12/15/23 Additional Source Comments The information contained in this document represents components of the legal health record. It is not the complete legal health record.[facility]
== END 2025-06-06 12:57 | disposition home or self-care (01) ==
PROVIDERS: PCP Internal Medicine; Visit Provider Physician Assistant
DX: M75.21 Bicipital tendinitis, right shoulder (principal)

== ENCOUNTER → 2025-06-06 11:55 | Outpatient (BNVA) | payer MEDICARE, SELFPAY | PROVIDERS: PCP Internal Medicine; Visit Provider Physician Assistant | DX: M75.21 Bicipital tendinitis, right shoulder (principal); S49.91XA Unspecified injury of right shoulder and upper arm, initial encounter; X58.XXXA Exposure to other specified factors, initial encounter; Y93.9 Activity, unspecified; Y92.9 Unspecified place or not applicable; Y99.9 Unspecified external cause status | CPT/HCPCS: 99212 ==

== ENCOUNTER 2025-07-25 08:55 | Outpatient (AMB) | payer MEDICARE, SELFPAY ==
--- NOTE | 2025-07-25 08:57 | A.OFFVIS_ITS ---
Vital Signs 07/25/25 09:01 Height 5 ft 2.52 in Weight 157 lb 6.561 oz BMI 28.3 BP 134/66 Blood Pressure Location Lt brachial Position Sitting Pulse 78 Pulse Source Pulse Oximeter Pulse Oximetry (%) 98 Oxygen Delivery Method Room Air Intake Visit Reasons: Osteoporosis Intake Note: Patient present today for Osteoporosis follow up. Applications Programmer Analyst Required: No Accompanied by: Self / Same As Patient Allergies No Known Allergies Allergy (Verified 07/25/25 09:02) HPI Comments Details: 74 YO Female with PMHx patellar fx is seen in consultation at the request of PCP for Osteoporosis. First diagnosed in 2 yrs ago . Received treatment in the past with Fosamax but didn't take it , n. No history of pathologic fracture or ONJ. Fxed patellar and elbow with hard fall. Fxed L4 compression fx sonya gup storage unit Has several servings of dietary calcium per day in the form of cheese and yogurt . Takes Calcium supplement ? mg daily in divided doses. Takes ? IU of Vitamin D daily. Denies ever using PPI, anticoagulant, antiepileptic or glucocorticoid medication. Does some weight bearing exercise once a mo . 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 UTD on dental cleanings and sees dentist every 6 months. No planned upcoming dental work or extractions. DXA dated 12/17/2021:[facility] [place] [id number] Mammography Report Signed Patient: Melanie Quiros Date of Service: 12/17/21 Follow Up: Procedure(s): XR DEXA axial skeleton Accession Number(s): [id number] cc: Tristian Galvan MD~ EXAMINATION: BONE DENSITOMETRY CLINICAL INDICATION: Asymptomatic. COMPARISON: Previous BD dated 01/06/2019 and baseline BD dated 07/27/2007. TECHNIQUE: Using a Passpack DXA System (software version: 13.1) manufactured by [employer], dual-energy x-ray absorptiometry was performed of the lumbar spine and left hip. The images are of good technical quality. Summary results are attached. FINDINGS: AP SPINE L1-L4:? Current: BMD 0.944 g/cm2, Z-score -0.4, T-score -2.0, osteopenia, 5.3% decrease from previous, 5.4% decrease from baseline (<5% change is not significant). Prior: BMD 0.933 g/cm2. Baseline: BMD 0.937 g/cm2. LEFT FEMUR, NECK: Current: BMD 0.678 g/cm2, Z-score -0.9, T-score -2.6, osteoporosis. Prior: BMD 0.713 g/cm2. Baseline: BMD 0.735 g/cm2. LEFT FEMUR, TOTAL: Current: BMD 0.733 g/cm2, Z-score -0.7, T-score -2.2, osteopenia, 1.9% decrease from previous, 4.1% decrease from baseline (<5% change is not significant). Prior: BMD 0.747 g/cm2. Baseline: BMD 0.764 g/cm2. IDENTIFIED RISK FACTORS: Recurrent falls, height loss, history of fracture (adult). Early menopause, secondary osteoporosis, hysterectomy, right oophorectomy. HISTORY OF FRACTURE: L5 vertebral body, elbow, wrist, patella. MEDICATIONS: Calcium supplements or multivitamin, vitamin D. MM/XR DEXA axial skeleton IMPRESSION: 1. DIAGNOSIS: Osteoporosis based on the lowest T-score Labs: Currently on alendronate 70 mg Q weekly. Started 09/2022 Recent DEXA shows stability in bone density. Urine NTX is suppressed [facility] Medical History Patellar fracture Osteopenia Galloway's esophagus Overweight (BMI 25.0-29.9) Pure hypercholesterolemia Benign essential hypertension GERD (gastroesophageal reflux disease) Surgical History History of cataract extraction Hx of tonsillectomy Hx of hysterectomy Hx of hemorrhoidectomy History of bladder suspension procedure History of esophagogastroduodenoscopy (EGD) Hx of colonoscopy Family History Mother Angina pectoris Hearing loss Father Colon cancer, Onset Age: 91 Hearing loss Colon polyp Sister Brain tumor Paternal Grandfather Lung cancer Maternal Grandfather Myocardial infarction Maternal Grandmother Scarlet fever Other Substance abuse Social History Household Members: None Housing: Other 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 Are you a primary career based intervention coordinator to a significant other at home: No Do you presently have visiting nurse or other home services: No Alcohol intake: former Patient Tobacco Use Status: Former Tobacco user e-Cigarette/Vaping Use: Never Used Second Hand Smoke Exposure: Yes service: No Current occupational status: retired Cognitive needs: No Hearing needs: No Vision needs: Yes (Glasses) Physical Exam Vital Signs: Last Vital Signs Pulse 78 07/25/25 09:01 BP 134/66 07/25/25 09:01 Pulse Ox 98 07/25/25 09:01 Oxygen Delivery Method Room Air 07/25/25 09:01 BMI result Body Mass Index 28.3 Assessment & Plan Assessment & Plan (1) Osteoporosis: Comment: started again on Alendronate in April 2023 Code(s): M81.0 - Age-related osteoporosis without current pathological fracture Category: Medical Qualifiers: Osteoporosis type: age-related Presence of current pathological fracture: without current pathological fracture Qualified Code(s): M81.0 - Age- related osteoporosis without current pathological fracture Plan: This 74-year-old white female with a history of osteoporosis and several falls and fractures. Secondary workup was negative. Currently on alendronate 70 mg weekly. Recent DEXA showed debility and bone density with borderline osteoporosis. Urine NTX is suppressed Will continue calcium and vitamin-D supplementation as well as alendronate . We will recheck DEXA in 8 months' time. Depending upon DEXA, will need to continue alendronate or consider drug holiday at that point Orders: Orders XR DEXA axial skeleton 8 Months M81.0 - Age-related osteoporosis without current pathological fracture Coding Level of Care Code Est Pt Level 3 (21813) Diagnoses Age-related osteoporosis without current pathological fracture M81.0 Osteoporosis type: age-related Presence of current pathological fracture: without current pathological fracture
[2025-07-25 09:01] VITALS: BP 134/66; PULSE 78; O2SAT 98; BMI 28.3
== END 2025-07-25 09:22 | disposition home or self-care (01) ==
LOC: HO.ENCR 08:56
PROVIDERS: PCP Internal Medicine; Visit Provider Internal Medicine Endocrinology, Diabetes & Metabolism
DX: M81.0 Age-related osteoporosis without current pathological fracture (principal)
CPT/HCPCS: 99213

== ENCOUNTER → 2025-07-25 08:55 | Outpatient (BNVA) | payer MEDICARE, SELFPAY | PROVIDERS: PCP Internal Medicine; Visit Provider Internal Medicine Endocrinology, Diabetes & Metabolism | DX: M81.0 Age-related osteoporosis without current pathological fracture (principal); Z79.899 Other long term (current) drug therapy | CPT/HCPCS: 99212 ==

== ENCOUNTER 2025-08-14 13:08 | Outpatient (RCR) | payer MEDICARE, SELFPAY ==
--- NOTE | 2025-07-06 18:23 | MHC.PT.EP ---
[facility] [place] Office [place] Office [place] Office [address] Pietro Vivar [address] [phone] F: [phone] F: [phone] F: [phone] F: [phone] Physical Therapy Plan of Care Date of Evaluation: 07/04/25 Date of Surgery: Diagnosis: Biceps tendonitis R shoulder. Assessment: Pt is a 74 y/o RHD female with PMHX of HTN, OA, Osteopenia, Galloway's esophagus, Overweight, Pure hypercholesterolemia, Benign essential hypertension, GERD who is referred to PT for eval and treat of Biceps tendonitis R shoulder who's condition is resulting in decreased tolerance for dressing jackets and pullovers, reaching high shelves, lifting and carrying objects of weight, repetitive activities, reaching her neck and back, as well as heavy HH chores secondary to TTP of R biceps and biceps tendon, decreased R shoulder ROM and strength, rounded shoulders, and pain with activity. Pt is deemed an appropriate candidate to receive skilled PT services to address their physical impairments in order to improve their functional ability. Frequency and Duration: The patient will be seen 1 x/ wk x 6 wks. Short Term Goals: initiate home program. improve baseline pain to at most 0-5/10; initial: 0-9/10. Deicer Repairer Goals: I with home program. Pt will be able to dress pullovers wit managed Sx. Pt will be able to reach high shelves with managed Sx. Pt will improve SPADI outcome measure by at least 13 points. Treatment Plan: Modalities to reduce pain, spasms and effusion. Manual therapy to restore motion and function. Therapeutic exercise to improve strength and flexibility. Neuromuscular re-education for posture and balance. Therapeutic activities to return to functional activities of daily living. Electronically signed by: Aryan Drake PT. Please sign and return to therapist. Thank you for your referral.
[2025-07-21 21:34] LABS: NTXCreaRU 71 mg/dL (20-275)
== END 2025-08-14 15:29 | disposition home or self-care (01) ==
LOC: HO.PT 13:08
PROVIDERS: Internal Medicine Endocrinology, Diabetes & Metabolism; PCP Internal Medicine; Visit Provider Physician Assistant
DX: M75.21 Bicipital tendinitis, right shoulder (principal)
CPT/HCPCS: 82523; 97014; 97110; 97140; 97161